=== PATIENT | male | born 1930 | race Caucasian/White ===

== ENCOUNTER 2016-06-27 13:48 | Observation (INO) ==
[2016-06-27 14:43] LABS: Basophils % 0.7 %; Eosinophils # 0.2 K/mcL (0.0-0.6); Eosinophils % 3.6 %; Hematocrit 29.2 % (37.5-50.1); Hemoglobin 9.3 g/dL (12.9-16.9); Immature Granulocytes % 0.6 % (0-4); Lymphocytes # 0.8 K/mcL (0.6-4.6); Lymphocytes % 14.2 %; Mean Corpuscular HGB Conc 31.8 g/dL (31.6-35.5); Mean Corpuscular Hemoglobin 36.3 pg (28.0-33.3); Mean Corpuscular Volume 114.1 fL (83.0-100.0); Mean Platelet Volume 9.2 fL (9.4-12.4); Monocytes # 0.6 K/mcL (0.0-1.3); Monocytes % 10.8 %; Neutrophils # 3.8 K/mcL (1.6-8.9); Platelet Count 225 K/mcL (140-400); Red Blood Count 2.56 M/mcL (4.19-5.50); Red Cell Distribution Width 14.8 % (11.5-14.5); Segmented Neutrophils % 70.1 %
[2016-06-27 14:57] LABS: Albumin/Globulin Ratio 0.9 (1.1-2.2); Bilirubin,Total 0.5 mg/dL (0.2-1.2); Calcium 9.1 mg/dL (8.6-10.8); Globulin 3.5 g/dL (2.4-3.5); Potassium 4.8 mEq/L (3.5-4.5); Total Protein 6.5 g/dL (6.0-8.3)
[2016-06-27 14:58] LABS: Anisocytosis 2+ (Not Present); Macrocytosis Present (Not Present)
[2016-06-27 14:59] LABS: Platelet Estimate Normal (Normal)
--- NOTE | 2016-06-27 16:01 | Emergency Department Note ---
Disposition Clinical Impression: Leg edema Qualifiers: Laterality: bilateral Qualified Code(s): R60.0 - Localized edema Disposition: Admitted As Inpatient Weakness HPI - General Chief complaint: ED Weakness Stated complaint: weakness, fluid build-up Time Seen by Provider: 06/27/16 13:57 Source: patient, family Limitations: age Nursing Notes Reviewed: Yes Vital Signs Reviewed: Yes - History of Present Illness HPI Narrative: Patient presents to complain of generalized weakness that has been progressively getting worse. Patient had surgery to remove a bladder tumor and no this more swelling after radiation. Patient has chest pain as noted is at some shortness of breath. Patient has increased weakness with is unable to get out of his chair at home. Patient presented to Dr. Marquez's office where he was sent over here for evaluation for admission. Patient denies numbness and tingling denies vision changes. Pain Scale: 0 - Related Data Home Medications Medication Instructions Recorded Confirmed Alpha Lipoic Acid 600 mg PO DAILY 12/18/15 06/27/16 B Complex with Vitamin C [Vitamin 1 each PO DAILY 12/18/15 06/27/16 B-Complex & C] Cranberry Fruit Extract [Cranberry] 500 mg PO DAILY 12/18/15 06/27/16 Cyanocobalamin (Vitamin B-12) 5,000 mcg SL DAILY 12/18/15 06/27/16 [Vitamin B-12] Gabapentin [Neurontin] 300 mg PO HS 12/18/15 06/27/16 Garlic 1,000 mg PO DAILY 12/18/15 06/27/16 Ginkgo Biloba 60 mg PO DAILY 12/18/15 06/27/16 Gluc Lemos/MSM/Magnesium/Vit C 2 each PO DAILY 12/18/15 06/27/16 [Glucosamine Complex-MSM Cap] Insulin Glargine,Hum.rec.anlog 40 unit SQ HS 12/18/15 06/27/16 [Lantus Solostar] Insulin LISPRO [Humalog] 35 unit SQ TID 12/18/15 06/27/16 Metoprolol XL (24 HR) Succ [Toprol 37.5 mg PO BID 12/18/15 06/27/16 Xl] Nortriptyline [Pamelor] 25 mg PO HS 12/18/15 06/27/16 [place]-3S/Dha/Epa/Fish Oil [[place]-3 2 each PO DAILY 12/18/15 06/27/16 Fish Oil 1,000 mg Sfgl] Tumeric-Curcumin Complex 1 tab PO DAILY 12/18/15 06/27/16 Vit C/E/Zn/Coppr/Lutein/Zeaxan 2 cap PO DAILY 12/18/15 06/27/16 [Preservision Areds 2 Softgel] Aspirin [Lo-Dose Aspirin EC] 81 mg PO DAILY 01/15/16 06/27/16 Atorvastatin Calcium [Lipitor] 80 mg PO HS 01/15/16 06/27/16 Multivit-Min/Iron Fum/Folic AC 1 each PO DAILY 01/15/16 06/27/16 [Tttkj-Uubnusv-Xerhejzo Tablet] Bumetanide [Bumex] 1 mg PO QAM 03/21/16 06/27/16 Enalapril Maleate [Vasotec] 10 mg PO DAILY 04/18/16 06/27/16 Fenofibrate [Lofibra] 160 mg PO DAILY 04/18/16 06/27/16 Ranitidine HCl [Heartburn Relief] 150 mg PO DAILY 04/18/16 06/27/16 Finasteride [Proscar] 5 mg PO DAILY 06/27/16 06/27/16 L. Acidophilus/Pectin, [place] 1 each PO DAILY 06/27/16 06/27/16 [Acidophilus Probiotic Capsule] Levothyroxine [Levothyroxine 137 mcg PO DAILY@0630 06/27/16 06/27/16 Sodium] Lutein/Zeaxanthin 1 each PO DAILY 06/27/16 06/27/16 [Lutein-Zeaxanthin 25-5 mg Sfgl] Previous Rx's Medication Instructions Recorded Ondansetron HCl [Zofran] 4 mg PO Q6HR PRN #20 tablet 01/16/16 Loperamide [Imodium] 2 mg PO BID PRN #60 capsule 03/21/16 Cephalexin [Keflex] 1,000 mg PO BID #40 capsule 06/21/16 Meloxicam [Mobic] 7.5 mg PO DAILY #10 tablet 06/21/16 Nitrofurantoin (BID) [Macrobid] 100 mg PO BID #20 capsule 06/21/16 Allergies Allergy/AdvReac Type Severity Reaction Status Date / Time No Known Allergies Allergy Verified 02/18/16 09:40 All systems ED: reviewed and negative except as stated. Past Medical History - Past Medical History Source: patient Medical history: Reports: cancer, diabetes, GERD, hyperlipidemia, hypertension, renal disease, thyroid disease, other Surgical history: Reports: carotid endarterectomy, knee replacement (Bilateral) , orthopedic, other (Back surgery), prostatectomy, vascular surgery (Aortic valve replacement), other (Ureteral stent him a port right upper chest) Psychiatric history: Reports: no psych history - Social History Smoking Status: Never smoker Smokeless Tobacco Status: No Alcohol use: Reports: none Drug use: Reports: none Physical Exam - General Limitations: age General appearance: alert, in no apparent distress - Head Head exam: atraumatic, normocephalic, normal inspection - Eye Eye exam: Present: normal appearance, PERRL, EOMI - ENT ENT exam: normal exam, normal oropharynx, mucous membranes moist - Neck Neck exam: Present: normal inspection, full ROM, trachea midline - Chest Chest inspection: Present: normal inspection, symmetric chest wall rise - Respiratory Respiratory exam: Present: normal lung sounds bilaterally - Cardiovascular Cardiovascular exam: Present: regular rate, normal rhythm, normal heart sounds - Abdominal Exam Abdominal exam: Present: soft, Non-Tender. Absent: tenderness, distention, guarding, rebound, rigidity - Extremities Exam Extremities exam: Present: full ROM, pedal edema. Absent: tenderness, normal capillary refill - Back Exam Back exam: Present: normal inspection, full ROM. Absent: tenderness - Neurological Exam Neurological exam: Present: alert, oriented X3 - Psychiatric Psychiatric exam: Present: normal affect, normal mood - Skin Skin exam: Present: warm Course Vital Signs Temperature 97.6 F 06/27/16 13:50 Pulse Rate 61 06/27/16 13:50 Respiratory Rate 18 06/27/16 13:50 Blood Pressure 120/76 06/27/16 13:50 O2 Sat by Pulse Oximetry 98 06/27/16 13:50 Temperature 97.6 F 06/27/16 13:50 Pulse Rate 63 06/27/16 15:04 Respiratory Rate 16 06/27/16 15:04 Blood Pressure 145/60 06/27/16 15:04 O2 Sat by Pulse Oximetry 100 06/27/16 15:04 Oxygen Delivery Oxygen Delivery Room Air Weakness - Differential Diagnosis Differential Diagnosis: Likely: acute myocardial infarction, anemia, rhabdomyolysis, dehydration, thyroid/endocrine disorder - Lab Data Lab results reviewed: Yes I reviewed the patient's lab results. Result diagrams: 06/27/16 14:33 06/27/16 14:33 Lab Results 06/27/16 06/27/16 06/27/16 Range/Units 14:33 14:33 14:33 WBC 5.4 (4.3-11.1) K/mcL RBC 2.56 L (4.19-5.50) M/mcL Hgb 9.3 L (12.9-16.9) g/dL Hct 29.2 L (37.5-50.1) % MCV 114.1 H (83.0-100.0) fL MCH 36.3 H (28.0-33.3) pg MCHC 31.8 (31.6-35.5) g/dL RDW 14.8 H (11.5-14.5) % Plt Count 225 (140-400) K/mcL MPV 9.2 L (9.4-12.4) fL Immature Gran % 0.6 (0-4) % Seg Neutrophils % 70.1 % Lymphocytes % 14.2 % Monocytes % 10.8 % Eosinophils % 3.6 % Basophils % 0.7 % Neutrophils # 3.8 (1.6-8.9) K/mcL Lymphocytes # 0.8 (0.6-4.6) K/mcL Monocytes # 0.6 (0.0-1.3) K/mcL Eosinophils # 0.2 (0.0-0.6) K/mcL Basophils # 0.0 (0.0-0.2) K/mcL Platelet Estimate Normal (Normal) Anisocytosis 2+ A (Not Present) Macrocytosis Present A (Not Present) Sodium 139 (136-145) mEq/L Potassium 4.8 H (3.5-4.5) mEq/L Chloride 110 H (98-109) mEq/L Carbon Dioxide 23 (19-29) mEq/L BUN 47 H (8-26) mg/dL Creatinine 1.84 H (0.72-1.25) mg/dL Est GFR ( Amer) 43 L (> 60) Est GFR (Non-Af Amer) 35 L (> 60) BUN/Creatinine Ratio 26 (6-26) Glucose 127 H (70-99) mg/dL Calculated Osmolality 302 H (280-300) Calcium 9.1 (8.6-10.8) mg/dL Total Bilirubin 0.5 (0.2-1.2) mg/dL AST 78 H (5-34) Units/L ALT 55 (0-55) Units/L Alkaline Phosphatase 46 (38-126) Units/L Troponin I 0.02 (0-0.03) ng/mL B-Natriuretic Peptide (0-100) pg/mL Serum Total Protein 6.5 (6.0-8.3) g/dL Albumin 3.0 L (3.5-5.0) g/dL Globulin 3.5 (2.4-3.5) g/dL Albumin/Globulin Ratio 0.9 L (1.1-2.2) / Range/Units 14:33 WBC (4.3-11.1) K/mcL RBC (4.19-5.50) M/mcL Hgb (12.9-16.9) g/dL Hct (37.5-50.1) % MCV (83.0-100.0) fL MCH (28.0-33.3) pg MCHC (31.6-35.5) g/dL RDW (11.5-14.5) % Plt Count (140-400) K/mcL MPV (9.4-12.4) fL Immature Gran % (0-4) % Seg Neutrophils % % Lymphocytes % % Monocytes % % Eosinophils % % Basophils % % Neutrophils # (1.6-8.9) K/mcL Lymphocytes # (0.6-4.6) K/mcL Monocytes # (0.0-1.3) K/mcL Eosinophils # (0.0-0.6) K/mcL Basophils # (0.0-0.2) K/mcL Platelet Estimate (Normal) Anisocytosis (Not Present) Macrocytosis (Not Present) Sodium (136-145) mEq/L Potassium (3.5-4.5) mEq/L Chloride (98-109) mEq/L Carbon Dioxide (19-29) mEq/L BUN (8-26) mg/dL Creatinine (0.72-1.25) mg/dL Est GFR ( Amer) (> 60) Est GFR (Non-Af Amer) (> 60) BUN/Creatinine Ratio (6-26) Glucose (70-99) mg/dL Calculated Osmolality (280-300) Calcium (8.6-10.8) mg/dL Total Bilirubin (0.2-1.2) mg/dL AST (5-34) Units/L ALT (0-55) Units/L Alkaline Phosphatase (38-126) Units/L Troponin I (0-0.03) ng/mL B-Natriuretic Peptide 334 H (0-100) pg/mL Serum Total Protein (6.0-8.3) g/dL Albumin (3.5-5.0) g/dL Globulin (2.4-3.5) g/dL Albumin/Globulin Ratio (1.1-2.2) - Radiology Data Radiology results reviewed: Yes I reviewed the patient's radiology results. Chest X-Ray 06/27/16 14:07 IMPRESSION: 1. Right chest port unchanged in position. 2. Persistent enlargement of the cardiac silhouette. 3. Small left pleural effusion with left basilar atelectasis. D/ / Jarret Mojica MD / Jarret Mojica MD Interpreting Provider: Jarret Mojica MD - EKG Data EKG attestation: Yes I reviewed and interpreted this EKG. EKG results narrative: Atrial flutter. This appears unchanged from previous EKG
[2016-06-27] MEDS ORDERED: Furosemide 40 MG/4 ML VIAL IVP ONE (16:09)
[2016-06-27] MEDS ORDERED: Naloxone 0.4 MG/ML INJ IVP PRN (17:11)
[2016-06-27] MEDS ORDERED: Acetaminophen 325 MG TABLET PO PRN (17:11)
[2016-06-27] MEDS ORDERED: Furosemide 80 MG in 0.9 % Sodium Chloride 50 ML IVPB SCH (17:30)
--- NOTE | 2016-06-27 17:48 | Internal Med History&Physical ---
Date of Encounter: 06/27/16 Time of Encounter: 17:43 Assessment and Plan (1) Peripheral edema Current visit: No Status: Acute Unclear etiology. No known history of CHF. Albumin low at 3, but likely not low enough to explain extent of edema. - Lasix IV BID - Check TTE - Request records from previous cardiology workup at [facility] (2) Weakness Current visit: No Status: Acute Patient appears very deconditioned after chemoradiation he received in 2016, worsened by large volume of edema. He has received five days of keflex and nitrofurantoin for UTI diagnosed on 06/21 - nitrofurantoin contraindicated in renal failure patient. Antibiotics held while UA obtained. - Family interested in inpatient rehab if possible - PT/OT while admitted - Check UA/micro to eval for evidence of infection (3) Atrial flutter with controlled response Current visit: No Status: Acute Rate controlled. Patient not anticoagulated. - Continue home beta keerthi (4) CKD (chronic kidney disease) Current visit: Yes Status: Acute Creatinine at baseline. Follows with Dr. Costa - Monitor creatinine with diuresis. - Avoid nephrotoxins Qualifiers: Chronic kidney disease stage: stage 3 (moderate) Qualified Code(s): N18.3 - Chronic kidney disease, stage 3 (moderate) Internal Medicine - H&P: HPI Chief complaint: weakness, edema Admitted From: Emergency Dept Plans for Post Hospital Care: Transfer Inp Rehab Fac History of present illness: Mr. Gonzalez is a 85 year old male with history of bladder cancer s/p chemoradiation, CKD, atrial flutter and aortic valve replacement (porcine), who presented to the ER this afternoon from Dr. Marquez's office after he was found to be very weak with increasing lower extremity edema during a routine follow up visit. He states that he has had issues with edema for many years, but has never carried a diagnosis of CHF. He had been treated with bumex 1mg daily with good results until 03/2016 when he developed worsening edema after completing radiation to the bladder. His bumex was increased to 2mg daily and his edema improved. His bumex was then decreased again to 1mg at one point, and that is his current dose. He has noticed increasing lower extremity edema extending up into his abdomen over the past 5-6 days. His pants are fitting snug around the waist. He has been very weak since 03/2016 after his cancer treatment completed , but this has also been getting worse lately. He denies chest pain. He also states that his breathing is comfortable, however his and daughter who are at bedside in the ER state that he has been visibly dyspneic recently. His notes that the breathing is significantly more labored when he is laying flat in bed at night. He denies fever or chills, nausea, vomiting, diarrhea or cough. He was treated for UTI at [facility] on 06/21 with keflex and nitrofurantoin, he refused admission at that time. Past Med Surg Social Fam HX - Past Medical History Medical history: cancer, diabetes, GERD, hyperlipidemia, hypertension, renal disease (CKD - follows with Dr. Costa), thyroid disease, other Psychiatric history: no psych history - Past Surgical History Surgical History: carotid endarterectomy, knee replacement (Bilateral), orthopedic, other (Back surgery), prostatectomy, vascular surgery (Aortic valve replacement), other (Ureteral stent him a port right upper chest) - Social History Smoking Status: Never smoker Smokeless Tobacco Status: No Alcohol use: none Drug use: none Additional social history: Lives at home with family - Family History Brother Living Status: Hx Family Cardiac Disorders: Yes Internal Medicine - H&P: Meds Alpha Lipoic Acid 600 mg PO DAILY 12/18/15 [History] B Complex with Vitamin C [Vitamin B-Complex & C] 1 each PO DAILY 12/18/15 [ History] Cranberry Fruit Extract [Cranberry] 500 mg PO DAILY 12/18/15 [History] Cyanocobalamin (Vitamin B-12) [Vitamin B-12] 5,000 mcg SL DAILY 12/18/15 [ History] Gabapentin [Neurontin] 300 mg PO HS 12/18/15 [History] Garlic 1,000 mg PO DAILY 12/18/15 [History] Ginkgo Biloba 60 mg PO DAILY 12/18/15 [History] Gluc [place]/MSM/Magnesium/Vit C [Glucosamine Complex-MSM Cap] 2 each PO DAILY [History] Insulin Glargine,Hum.rec.anlog [Lantus Solostar] 40 unit SQ HS 12/18/15 [History ] Insulin LISPRO [Humalog] 35 unit SQ TID 12/18/15 [History] Metoprolol XL (24 HR) Succ [Toprol Xl] 37.5 mg PO BID 12/18/15 [History] Nortriptyline [Pamelor] 25 mg PO HS 12/18/15 [History] [place]-3S/Dha/Epa/Fish Oil [[place]-3 Fish Oil 1,000 mg Sfgl] 2 each PO DAILY 12/17 [History] Tumeric-Curcumin Complex 1 tab PO DAILY 12/18/15 [History] Vit C/E/Zn/Coppr/Lutein/Zeaxan [Preservision Areds 2 Softgel] 2 cap PO DAILY 09/26 [History] Aspirin [Lo-Dose Aspirin EC] 81 mg PO DAILY 01/15/16 [History] Atorvastatin Calcium [Lipitor] 80 mg PO HS 01/15/16 [History] Multivit-Min/Iron Fum/Folic AC [Qukqp-Pugfjwt-Axtiadpd Tablet] 1 each PO DAILY 01/15/16 [History] Ondansetron HCl [Zofran] 4 mg PO Q6HR PRN #20 tablet 01/16/16 [Rx] Bumetanide [Bumex] 1 mg PO QAM 03/21/16 [History] Loperamide [Imodium] 2 mg PO BID PRN #60 capsule 03/21/16 [Rx] Enalapril Maleate [Vasotec] 10 mg PO DAILY 04/18/16 [History] Fenofibrate [Lofibra] 160 mg PO DAILY 04/18/16 [History] Ranitidine HCl [Heartburn Relief] 150 mg PO DAILY 04/18/16 [History] Cephalexin [Keflex] 1,000 mg PO BID #40 capsule 06/21/16 [Rx] Meloxicam [Mobic] 7.5 mg PO DAILY #10 tablet 06/21/16 [Rx] Nitrofurantoin (BID) [Macrobid] 100 mg PO BID #20 capsule 06/21/16 [Rx] Finasteride [Proscar] 5 mg PO DAILY 06/27/16 [History] L. Acidophilus/Pectin, [place] [Acidophilus Probiotic Capsule] 1 each PO DAILY [History] Levothyroxine [Levothyroxine Sodium] 137 mcg PO DAILY@0630 06/27/16 [History] Lutein/Zeaxanthin [Lutein-Zeaxanthin 25-5 mg Sfgl] 1 each PO DAILY 06/27/16 [ History] Allergies No Known Allergies Allergy (Verified 02/18/16 09:40) All Systems PM: A 10-system review of systems was performed and is negative for pertinent findings except as documented above in the HPI. - Constitutional Vitals: Temp Pulse Resp BP Pulse Ox 97.6 F 63 16 138/64 99 06/27/16 13:50 06/27/16 17:07 06/27/16 17:07 06/27/16 17:07 06/27/16 17:07 General appearance: Present: A&O X 3 Exam: Patient in no acute distress, resting comfortably in bed. - Head Head exam: Present: atraumatic - Eye Eye exam: Present: EOMI, sclera anicteric - ENT ENT exam: Present: mucous membranes moist - Respiratory Additional comments: Decreased breath sounds in bilateral bases, no wheezing - Cardiovascular Cardiovascular exam: Present: RRR. Absent: diastolic murmur, gallop, rubs, systolic murmur - GI/Abdominal GI/Abdominal exam: Present: distended (skin edema of lower abdomen), normal bowel sounds, soft. Absent: tenderness - Extremities Exam Extremities exam: Present: pedal edema Additional comments: 3+ edema bilateral lower extremities - Neurological Exam Neurological exam: Present: no focal deficits - Skin Skin exam: Absent: rash Internal Med - H&P Results - Labs CBC & Chem 7: 06/27/16 14:33 06/27/16 14:33
[2016-06-27] MEDS ORDERED: Insulin LISPRO 300 UNITS/3 ML VIAL SQ ONE (18:47)
[2016-06-27] MEDS ORDERED: Nitrofurantoin (BID) 100 MG CAPSULE PO SCH (21:00)
[2016-06-27] MEDS ORDERED: cephALEXin 500 MG CAPSULE PO SCH (21:00)
[2016-06-27] MEDS: Metoprolol XL (24 HR) Succ 25 MG TAB.ER.24H PO SCH (21:12)
[2016-06-27] MEDS: Gabapentin 300 MG CAPSULE PO SCH (21:13)
[2016-06-27] MEDS: Insulin DETEMIR 100 UNIT/ML X5UNITS SQ SCH (21:17)
[2016-06-28 04:05] LABS: Basophils % 0.6 %; Eosinophils # 0.2 K/mcL (0.0-0.6); Eosinophils % 3.9 %; Hematocrit 27.9 % (37.5-50.1); Hemoglobin 8.9 g/dL (12.9-16.9); Immature Granulocytes % 0.4 % (0-4); Lymphocytes # 0.8 K/mcL (0.6-4.6); Lymphocytes % 15.4 %; Mean Corpuscular HGB Conc 31.9 g/dL (31.6-35.5); Mean Platelet Volume 9.4 fL (9.4-12.4); Monocytes # 0.8 K/mcL (0.0-1.3); Monocytes % 14.2 %; Platelet Count 239 K/mcL (140-400); Red Blood Count 2.47 M/mcL (4.19-5.50); Red Cell Distribution Width 15.2 % (11.5-14.5); Segmented Neutrophils % 65.5 %
[2016-06-28 04:13] LABS: Neutrophils # 3.5 K/mcL (1.6-8.9)
[2016-06-28 04:16] LABS: Calcium 8.4 mg/dL (8.6-10.8); Potassium 5.1 mEq/L (3.5-4.5)
[2016-06-28 04:53] LABS: Macrocytosis Present (Not Present)
[2016-06-28 04:54] LABS: Platelet Estimate Normal (Normal)
[2016-06-28] MEDS: *HR* Heparin 5,000 UNIT/ML VIAL SQ SCH ×2 (06:34→18:33)
[2016-06-28] MEDS: Insulin LISPRO 300 UNITS/3 ML VIAL SQ SCH ×3 (07:30→18:32)
[2016-06-28] MEDS: Famotidine 20 MG TABLET PO SCH (09:05)
[2016-06-28] MEDS: Metoprolol XL (24 HR) Succ 25 MG TAB.ER.24H PO SCH ×2 (09:05→21:18)
[2016-06-28] MEDS: Fenofibrate 54 MG TABLET PO SCH (09:05)
[2016-06-28] MEDS: Lactobacillus 1 EACH CAP.SPRINK PO SCH (09:05)
[2016-06-28] MEDS: Aspirin Enteric Coated 81 MG Tablet PO SCH (09:06)
[2016-06-28] MEDS: Finasteride 5 MG TABLET PO SCH (09:06)
[2016-06-28] MEDS: Furosemide 40 MG/4 ML VIAL IVP SCH ×2 (09:40→18:32)
--- NOTE | 2016-06-28 14:38 | Internal Med Progress Note ---
Date of Encounter: 06/28/16 Time of Encounter: 14:36 - Assessment and plan (1) Leg edema Current Visit: Yes Status: Acute Assessment and plan: Severe bilateral leg edema with bilateral small pleural effusions worse on the left, consider possible CHF systolic versus diastolic Leg edema was exacerbated after receiving chemotherapy and radiation for history of bladder cancer Echocardiogram ordered Continue Lasix 40 mg IV twice a day, patient takes Bumex 1 mg daily at home Strict I's and O's and daily weight Qualifiers: Laterality: bilateral Qualified Code(s): R60.0 - Localized edema (2) Peripheral edema Current Visit: No Status: Acute (3) Weakness Current Visit: No Status: Acute Assessment and plan: Likely related to vascular congestion/pleural effusions/edema (4) Atrial flutter with controlled response Current Visit: No Status: Acute Assessment and plan: Controlled on metoprolol Not on anticoagulation, continue aspirin (5) UTI (urinary tract infection) Current Visit: No Status: Acute Assessment and plan: Treated for UTI recently with Keflex and Nitrofurantoin (should not be used with CKD), order UA and culture Grew Proteus in April 2016 pansensitive and enterococcus sensitive to ampicillin in the past Qualifiers: Urinary tract infection type: acute cystitis Hematuria presence: with hematuria Qualified Code(s): N30.01 - Acute cystitis with hematuria (6) CKD (chronic kidney disease) Current Visit: Yes Status: Acute Assessment and plan: Stable, at baseline Qualifiers: Chronic kidney disease stage: stage 3 (moderate) Qualified Code(s): N18.3 - Chronic kidney disease, stage 3 (moderate) (7) Pressure ulcer of coccygeal region, stage 2 Current Visit: No Status: Acute (8) Hyperkalemia Current Visit: Yes Status: Acute Assessment and plan: Potassium is 5.1 Monitor in the morning, consider Kayexalate and holding lisinopril if needed - Subjective Interval history: The patient feels less short of breath than yesterday but still very weak, his legs are still extremely swollen, denies any dysuria at the moment. Denies any chest pain, no abdominal pain or diarrhea, no fever - Constitutional Vitals: Temp Pulse Resp BP Pulse Ox 97.8 F 63 16 125/58 97 06/28/16 11:52 06/28/16 11:52 06/28/16 11:52 06/28/16 11:52 06/28/16 11:52 General appearance: Present: A&O X 3 - Head Head exam: Present: atraumatic, normocephalic - Eye Eye exam: Present: PERRL, conjuntiva pink, sclera anicteric Pupils: Present: PERRL - Neck Neck exam general surgery: Present: supple, trachea midline. Absent: lymphadenopathy - Respiratory Respiratory exam: Present: CTAB, rales (Bibasilar fine crackles mainly on the left base). Absent: accessory muscle use, rhonchi, wheezes - Cardiovascular Cardiovascular exam: Present: RRR, +S1, +S2, systolic murmur (Loud systolic murmur 2 out of 6 rad to the aortic area). Absent: diastolic murmur, gallop, rubs - GI/Abdominal GI/Abdominal exam: Present: distended, normal bowel sounds, soft, no peritoneal signs. Absent: tenderness - Extremities Exam Extremities exam: Present: pedal edema (+3 pitting edema in both lower extremities), warm, radial pulses palpable and symetrical. Absent: calf tenderness, cyanotic - Neurological Exam Neurological exam: Present: CN II-XII intact, oriented X3, no focal deficits. Absent: pronater drift, facial droop, speech deficit - Skin Skin exam: Present: dry, intact Internal Medicine: Result - Labs CBC & Chem 7: 06/28/16 03:56 06/28/16 03:56 Labs: Short CBC 06/28/16 Range/Units 03:56 WBC 5.4 (4.3-11.1) K/mcL Hgb 8.9 L (12.9-16.9) g/dL Hct 27.9 L (37.5-50.1) % Plt Count 239 (140-400) K/mcL Neutrophils # 3.5 (1.6-8.9) K/mcL BMP 06/28/16 03:56 Sodium 139 Potassium 5.1 H Chloride 108 Carbon Dioxide 24 BUN 47 H Creatinine 1.86 H Glucose 118 H Calcium 8.4 L Consult Discharge Plan - Plan Referrals: Doris Kwon MD [Primary Care Provider] -
[2016-06-28] MEDS: Gabapentin 300 MG CAPSULE PO SCH (21:18)
[2016-06-28] MEDS: Insulin DETEMIR 100 UNIT/ML X5UNITS SQ SCH (21:18)
[2016-06-29 01:45] LABS: Bilirubin,Urine Negative (Negative); Blood,Urine Large (Negative); Clarity,Urine Cloudy (Clear); Color,Urine Yellow (Yellow); Glucose,Urine (UA) 100 mg/dL (Normal); Ketones,Urine Negative (Negative); Leukocyte Esterase,Urine Moderate (Negative); Nitrite,Urine Negative (Negative); Protein,Urine 100 mg/dL (Neg-Trace); Specific Gravity,Urine 1.016 (1.010-1.025); Urobilinogen,Urine Normal (Normal)
[2016-06-29 01:47] LABS: Bacteria,Urine None Seen per hpf (None-Few); RBC,Urine TNTC per hpf (0-3); Squamous Epithelial Cell,Urine Many per lpf (None-Few); WBC,Urine 15-30 per hpf (0-3)
[2016-06-29 01:55] LABS: Mucus,Urine Few (Few); Renal Epithelial Cells,Urine Few per hpf (None-Few)
[2016-06-29 04:46] LABS: Basophils # 0.1 K/mcL (0.0-0.2); Basophils % 0.8 %; Eosinophils # 0.3 K/mcL (0.0-0.6); Eosinophils % 3.8 %; Hematocrit 27.6 % (37.5-50.1); Immature Granulocytes % 0.3 % (0-4); Lymphocytes % 17.6 %; Mean Corpuscular HGB Conc 32.6 g/dL (31.6-35.5); Mean Corpuscular Hemoglobin 36.6 pg (28.0-33.3); Mean Corpuscular Volume 112.2 fL (83.0-100.0); Mean Platelet Volume 9.9 fL (9.4-12.4); Monocytes % 14.7 %; Neutrophils # 4.1 K/mcL (1.6-8.9); Platelet Count 244 K/mcL (140-400); Red Blood Count 2.46 M/mcL (4.19-5.50); Red Cell Distribution Width 15.1 % (11.5-14.5); Segmented Neutrophils % 62.8 %
[2016-06-29 04:59] LABS: Lymphocytes # 1.1 K/mcL (0.6-4.6)
[2016-06-29 05:05] LABS: Calcium 8.6 mg/dL (8.6-10.8); Potassium 4.7 mEq/L (3.5-4.5)
[2016-06-29 05:16] LABS: Platelet Estimate Normal (Normal)
[2016-06-29 05:17] LABS: Macrocytosis Present (Not Present); Polychromasia 1+ (Not Present)
[2016-06-29 05:18] LABS: Anisocytosis 1+ (Not Present); Large Platelets Present (Not Present)
[2016-06-29] MEDS: *HR* Heparin 5,000 UNIT/ML VIAL SQ SCH (06:03)
[2016-06-29] MEDS ORDERED: *HR* OxyCODONE Immed Rel 5 MG TABLET PO PRN (06:41)
[2016-06-29] MEDS: Insulin LISPRO 300 UNITS/3 ML VIAL SQ SCH (09:03)
[2016-06-29] MEDS: Lactobacillus 1 EACH CAP.SPRINK PO SCH (09:04)
[2016-06-29] MEDS: Famotidine 20 MG TABLET PO SCH (09:04)
[2016-06-29] MEDS: Finasteride 5 MG TABLET PO SCH (09:04)
[2016-06-29] MEDS: Aspirin Enteric Coated 81 MG Tablet PO SCH (09:04)
[2016-06-29] MEDS: Furosemide 40 MG/4 ML VIAL IVP SCH (09:04)
[2016-06-29] MEDS: Fenofibrate 54 MG TABLET PO SCH (09:05)
[2016-06-29] MEDS: Metoprolol XL (24 HR) Succ 25 MG TAB.ER.24H PO SCH (09:05)
[2016-06-29] MEDS ORDERED: Amoxicillin/Clavulanate 500 MG TABLET PO SCH (09:32)
--- NOTE | 2016-06-29 09:33 | Discharge Summary ---
Date of Encounter: 06/29/16 Time of Encounter: 09:31 - Discharge Diagnosis (1) Leg edema Priority: Primary Status: Acute Comments: Severe bilateral leg edema with bilateral small pleural effusions worse on the left, Leg edema was exacerbated after receiving chemotherapy and radiation for history of bladder cancer, consider possible CHF systolic versus diastolic Echocardiogram pending Qualifiers: Laterality: bilateral Qualified Code(s): R60.0 - Localized edema (2) Peripheral edema Priority: Primary Status: Inactive (3) Weakness Priority: Secondary Status: Inactive (4) Atrial flutter with controlled response Priority: Secondary Status: Inactive (5) UTI (urinary tract infection) Priority: Primary Status: Inactive Qualifiers: Urinary tract infection type: acute cystitis Hematuria presence: with hematuria Qualified Code(s): N30.01 - Acute cystitis with hematuria (6) CKD (chronic kidney disease) Priority: Secondary Status: Acute Qualifiers: Chronic kidney disease stage: stage 3 (moderate) Qualified Code(s): N18.3 - Chronic kidney disease, stage 3 (moderate) (7) Hyperkalemia Priority: Secondary Status: Acute - Discharge Medications Prescriptions: Amoxicillin/Clavulanate [Augmentin] 875 mg PO BIDWM #16 tablet Bumetanide [Bumex] 1 mg PO BID #60 tablet Home Medications: Alpha Lipoic Acid 600 mg PO DAILY 12/18/15 [History] B Complex with Vitamin C [Vitamin B-Complex & C] 1 each PO DAILY 12/18/15 [ History] Cranberry Fruit Extract [Cranberry] 500 mg PO DAILY 12/18/15 [History] Cyanocobalamin (Vitamin B-12) [Vitamin B-12] 5,000 mcg SL DAILY 12/18/15 [ History] Gabapentin [Neurontin] 300 mg PO HS 12/18/15 [History] Garlic 1,000 mg PO DAILY 12/18/15 [History] Ginkgo Biloba 60 mg PO DAILY 12/18/15 [History] Gluc [place]os/MSM/Magnesium/Vit C [Glucosamine Complex-MSM Cap] 2 each PO DAILY [History] Insulin Glargine,Hum.rec.anlog [Lantus Solostar] 40 unit SQ HS 12/18/15 [History ] Insulin LISPRO [Humalog] 35 unit SQ TID 12/18/15 [History] Metoprolol XL (24 HR) Succ [Toprol Xl] 37.5 mg PO BID 12/18/15 [History] Nortriptyline [Pamelor] 25 mg PO HS 12/18/15 [History] [place]-3S/Dha/Epa/Fish Oil [[place]-3 Fish Oil 1,000 mg Sfgl] 2 each PO DAILY 12/17 [History] Tumeric-Curcumin Complex 1 tab PO DAILY 12/18/15 [History] Vit C/E/Zn/Coppr/Lutein/Zeaxan [Preservision Areds 2 Softgel] 2 cap PO DAILY 09/26 [History] Aspirin [Lo-Dose Aspirin EC] 81 mg PO DAILY 01/15/16 [History] Atorvastatin Calcium [Lipitor] 80 mg PO HS 01/15/16 [History] Multivit-Min/Iron Fum/Folic AC [Gcbzs-Bujdppt-Pprvkabp Tablet] 1 each PO DAILY 01/15/16 [History] Ondansetron HCl [Zofran] 4 mg PO Q6HR PRN #20 tablet 01/16/16 [Rx] Loperamide [Imodium] 2 mg PO BID PRN #60 capsule 03/21/16 [Rx] Enalapril Maleate [Vasotec] 10 mg PO DAILY 04/18/16 [History] Fenofibrate [Lofibra] 160 mg PO DAILY 04/18/16 [History] Ranitidine HCl [Heartburn Relief] 150 mg PO DAILY 04/18/16 [History] Meloxicam [Mobic] 7.5 mg PO DAILY #10 tablet 06/21/16 [Rx] Finasteride [Proscar] 5 mg PO DAILY 06/27/16 [History] L. Acidophilus/Pectin, [place] [Acidophilus Probiotic Capsule] 1 each PO DAILY [History] Levothyroxine [Levothyroxine Sodium] 137 mcg PO DAILY@0630 06/27/16 [History] Lutein/Zeaxanthin [Lutein-Zeaxanthin 25-5 mg Sfgl] 1 each PO DAILY 06/27/16 [ History] Amoxicillin/Clavulanate [Augmentin] 875 mg PO BIDWM #16 tablet 06/29/16 [Rx] Bumetanide [Bumex] 1 mg PO BID #60 tablet 06/29/16 [Rx] Allergies/Adverse Reactions: Allergies No Known Allergies Allergy (Verified 02/18/16 09:40) Procedures/tests Complete & Pending: Procedures Performed prior 72 hours Category Date Time Status EV echocardiogram Routine Y 06/28/16 10:00 Completed Date of admission: 06/27/16 16:27 Primary care physician: Doris Kwon MD Consults: 06/27/16 17:14 Consult to Occupational Therapy [CONS] Routine Comment: Evaluate, develop and implement POC Consult to Physical Therapy [CONS] Routine Comment: Evaluate, develop and implement POC - Patient Status Disposition: Home Health Service Condition: Fair Overall status at discharge: patient is progressing back to baseline - Discharge Instructions Follow Up With: Doris Kwon MD [Primary Care Provider] - Forms: ED Satisfaction Letter Additional Instructions: Follow with primary care physician and urology within 7 days. In crease Bumex to 1 mg twice a day. Continue Augmentin for 1 week. Review results of echocardiogram with primary care physician. Keep Gupta catheter until urology appointment - Diet and Activity Activity: increase activity as tolerated Diet: low fat, low cholesterol Hospital course: Mr. Gonzalez is a 86 year old male with history of bladder cancer s/p chemoradiation, CKD3, atrial flutter and aortic valve replacement (porcine), who presented to the ER from Dr. Marquez's office after he was found to be very weak with increasing lower extremity edema during a routine follow up visit. He stated that he has had issues with edema for many years, but has never carried a diagnosis of CHF. He had been treated with bumex 1mg daily with good results until 03/2016 when he developed worsening edema after completing radiation to the bladder. His bumex was increased to 2mg daily and his edema improved. His bumex was then decreased again to 1mg at one point, and that is his current dose. He has noticed increasing lower extremity edema extending up into his abdomen over the past 5-6 days. He has been very weak since 03/2016 after his cancer treatment completed, but this has also been getting worse lately. He denies chest pain. He also states that his breathing is comfortable, however his and daughter who are at bedside in the ER state that he has been visibly dyspneic recently. He was treated for UTI at [facility] on 06/21 with keflex and nitrofurantoin, he refused admission at that time. chest x-ray showed left small pleural effusion with left basilar atelectases, was started on Lasix 40 mg twice a day. Potassium was 5.1 and came down to 4.7. Weakness is Likely related to vascular congestion/pleural effusions/edema. Gupta catheter was places and a UA showed hematuria and possible infection Before admission he was treated for UTI recently with Keflex and Nitrofurantoin (should not be used with CKD) In past cultures Grew Proteus in April 2016 pansensitive and enterococcus sensitive to ampicillin in the past He was given the option to stay another day to discuss his case with the continuous pillowcase cutter and attempt admission to inpatient rehab but at the moment he prefers to go home. He will keep the gupta catheter and follow up with his urologist within 7 days. Augmentin will be started - Time Spent with Patient Total time spent providing and/or coordinating discharge services: Greater than 30 minutes (40 min) - Constitutional Vitals: Temp Pulse Resp BP Pulse Ox 97.6 F 68 18 92/47 95 06/29/16 07:59 06/29/16 07:59 06/29/16 07:59 06/29/16 07:59 06/29/16 07:59 General appearance: Present: A&O X 3 - Head Head exam: Present: atraumatic, normocephalic - Eye Eye exam: Present: PERRL, conjuntiva pink, sclera anicteric Pupils: Present: PERRL - Neck Neck exam general surgery: Present: supple, trachea midline. Absent: lymphadenopathy - Respiratory Respiratory exam: Present: decreased breath sounds (left fine basilar crackles) , CTAB. Absent: accessory muscle use, rales, rhonchi, wheezes - Cardiovascular Cardiovascular exam: Present: RRR, +S1, +S2, systolic murmur (2/6 rad to aortic area). Absent: diastolic murmur, gallop, rubs - GI/Abdominal GI/Abdominal exam: Present: normal bowel sounds, soft, no peritoneal signs. Absent: distended, tenderness - Extremities Exam Extremities exam: Present: pedal edema (+ 2 pitting edema in both lower extremities improved), warm, radial pulses palpable and symetrical. Absent: calf tenderness, cyanotic - Neurological Exam Neurological exam: Present: CN II-XII intact, oriented X3, no focal deficits. Absent: pronater drift, facial droop, speech deficit - Skin Skin exam: Present: dry, intact
--- NOTE | 2016-06-29 09:46 | Physician Discharge Referral ---
Home Health/Hosp Referral Info Transfer to: Home Health Provider in Charge Post Discharge: PCP - Diagnosis (1) Leg edema Status: Acute (2) Peripheral edema Status: Inactive (3) Weakness Status: Inactive (4) Atrial flutter with controlled response Status: Inactive (5) UTI (urinary tract infection) Status: Inactive (6) CKD (chronic kidney disease) Status: Acute (7) Hyperkalemia Status: Acute - Respiratory Orders Smoking Cessation: Smoking cessation has been advised. For more information, call the [employer] Quit Line at 5-908-ZBWB-NOW. - Diet/Nutrition Diet/Nutrition Orders: No Added Salt (BLANCA) - Services Needed Following services are medically necessary services: Home Health Aide, Physical Therapy Home Care Orders: Follow with primary care physician and urology within 7 days. In crease Bumex to 1 mg twice a day. Continue Augmentin for 1 week. Review results of echocardiogram with primary care physician. Keep Knapp catheter until urology appointment - Transfer Medications Prescriptions: Amoxicillin/Clavulanate [Augmentin] 875 mg PO BIDWM #16 tablet Bumetanide [Bumex] 1 mg PO BID #60 tablet Home Medications: Alpha Lipoic Acid 600 mg PO DAILY 12/18/15 [History] B Complex with Vitamin C [Vitamin B-Complex & C] 1 each PO DAILY 12/18/15 [ History] Cranberry Fruit Extract [Cranberry] 500 mg PO DAILY 12/18/15 [History] Cyanocobalamin (Vitamin B-12) [Vitamin B-12] 5,000 mcg SL DAILY 12/18/15 [ History] Gabapentin [Neurontin] 300 mg PO HS 12/18/15 [History] Garlic 1,000 mg PO DAILY 12/18/15 [History] Ginkgo Biloba 60 mg PO DAILY 12/18/15 [History] Gluc [place]/MSM/Magnesium/Vit C [Glucosamine Complex-MSM Cap] 2 each PO DAILY [History] Insulin Glargine,Hum.rec.anlog [Lantus Solostar] 40 unit SQ HS 12/18/15 [History ] Insulin LISPRO [Humalog] 35 unit SQ TID 12/18/15 [History] Metoprolol XL (24 HR) Succ [Toprol Xl] 37.5 mg PO BID 12/18/15 [History] Nortriptyline [Pamelor] 25 mg PO HS 12/18/15 [History] [place]-3S/Dha/Epa/Fish Oil [[place]-3 Fish Oil 1,000 mg Sfgl] 2 each PO DAILY 12/17 [History] Tumeric-Curcumin Complex 1 tab PO DAILY 12/18/15 [History] Vit C/E/Zn/Coppr/Lutein/Zeaxan [Preservision Areds 2 Softgel] 2 cap PO DAILY 09/26 [History] Aspirin [Lo-Dose Aspirin EC] 81 mg PO DAILY 01/15/16 [History] Atorvastatin Calcium [Lipitor] 80 mg PO HS 01/15/16 [History] Multivit-Min/Iron Fum/Folic AC [Tdjit-Vmusvot-Rktlpvnz Tablet] 1 each PO DAILY 01/15/16 [History] Ondansetron HCl [Zofran] 4 mg PO Q6HR PRN #20 tablet 01/16/16 [Rx] Loperamide [Imodium] 2 mg PO BID PRN #60 capsule 03/21/16 [Rx] Enalapril Maleate [Vasotec] 10 mg PO DAILY 04/18/16 [History] Fenofibrate [Lofibra] 160 mg PO DAILY 04/18/16 [History] Ranitidine HCl [Heartburn Relief] 150 mg PO DAILY 04/18/16 [History] Meloxicam [Mobic] 7.5 mg PO DAILY #10 tablet 06/21/16 [Rx] Finasteride [Proscar] 5 mg PO DAILY 06/27/16 [History] L. Acidophilus/Pectin, [place] [Acidophilus Probiotic Capsule] 1 each PO DAILY [History] Levothyroxine [Levothyroxine Sodium] 137 mcg PO DAILY@0630 06/27/16 [History] Lutein/Zeaxanthin [Lutein-Zeaxanthin 25-5 mg Sfgl] 1 each PO DAILY 06/27/16 [ History] Amoxicillin/Clavulanate [Augmentin] 875 mg PO BIDWM #16 tablet 06/29/16 [Rx] Bumetanide [Bumex] 1 mg PO BID #60 tablet 06/29/16 [Rx] Allergies/Adverse Reactions: Allergies No Known Allergies Allergy (Verified 02/18/16 09:40) Certification: Further, I certify that my clinical findings support that this patient is homebound (i.e. absences from home require considerable and taxing effort and are for medical reasons or cheondoism services or infrequently or short duration when for other reasons) because: Homebound Reason: Patient requires assistance of a person or device to safely leave home Attestation: My signature below is to certify that this patient is under my care and that I, or nurse practitioner, or a physician's nurse assistant working with me, has a face-to -face encounter with this patient.
--- NOTE | 2016-06-29 11:29 | ECHO - Doppler Report ---
Echocardiogram Name: Stevie Gonzalez Date of Study: 06/28/2016 Date: 1930 Ht: 72.0 in Medical Record#: [id number] Age: 86 Wt: 250.0 lb Gender: Male BSA: 2.34 Order #: [id number] Location: [facility] Room #: 2NE18 Reading Physician: Karissa Mata DO Rn Transfer: LORENZO SerratoT, [facility] Ordering Physician: Ely Shields MD Primary Physician: Doris Kwon MD Indications: Edema Impressions: Technically challenging study with suboptimal windows. Overall, LV systolic function is normal EF 60%. Indeterminate diastolic function. RV size and function are normal. Medical history documents the patient is s/p porcine aortic valve replacement. By Doppler interrogation of the aortic valve, there is severe aortic stenosis (PV 4.4m/s, MG 44 mmHg, DI 0.29, MAYA 0.9cm2). Mild tricuspid regurgitation. At least mild pulmonary hypertension by TR gradient. IVC is not well visualized. No prior echo for comparison. Left Ventricular Wall Motion: Rest Echo Findings The mid anterior septal, mid inferior lateral, basal anterior septal and basal inferior lateral braxton were not visualized. All other wall segments showed normal motion. Findings: Study Quality * Technically sub-optimal due to body habitus. ECG Findings * Atrial fibrillation/flutter. Aortic Valve * No aortic regurgitation. * Prosthetic porcine aortic valve not well visualized. * Severe aortic stenosis by Doppler. Mitral Valve * Trace mitral regurgitation. * Mitral valve not well visualized. * No mitral stenosis. Tricuspid Valve * Tricuspid valve not well visualized. * Mild tricuspid regurgitation. Pulmonic Valve * Pulmonic valve is not well visualized. * No pulmonic stenosis. * No pulmonic regurgitation. Pulmonary Artery * Pulmonary artery not well visualized. Left Ventricle * LVEF 60%. * Normal LV chamber size, wall thickness and function. * Indeterminate diastolic function. Right Ventricle * Normal right ventricular structure and function. Right Atrium * Normal right atrial size. Left Atrium * Moderately dilated left atrium. Interatrial Septum * Interatrial septum not well evaluated. Pericardium * There is no pericardial effusion present. Aorta * Not well visualized. IVC * The IVC is not well evaluated. History Hypertension Diabetes Hypercholesteremia Family History of CAD Valvular Disease Valve Replacement AV Prosthesis Biologic Measurements: BP: 125/ 58 2D Normal Values LVIDd: 4.40 cm 3.7 - 5.6 cm LVIDs: 3.20 cm 1.5 - 3.6 cm LA: 4.60 cm 2.0 - 4.0cm %FS: 27.30 cm >25 % LVOT Diam: 2.00 cm LA volume: 85 Mitral Valve Peak Velocity 1.64 m/sec Mean Velocity:.87 m/sec Peak Grad:11.00 mmHg Mean Grad:4.00 mmHg Pressure Time:61.00 msec Dec Time:313.00 msec Valve Area:2.65 cm2 Peak E:1.51 m/sec Peak E' Lat Jerry:12 cm/s Peak E' Med Jerry:8.22 cm/s E/E' Lat Ratio:12.6 E/E' Med Ratio:18.4 LVOT Peak Jerry:1.20 m/sec Mean Jerry:.81 m/sec Peak Grad:6.00 mmHg Mean Grad:3.00 mmHg Aortic Valve Peak Jerry:4.69 m/sec Mean Jerry:3.28 m/sec Peak Grad:88.00 mmHg Mean Grad:50.00 mmHg Valve Area:.95 cm2 Tricuspid Valve TV Regurg Peak Grad: 44.00mmHg TV Regurg Peak Jerry: 3.30m/sec Updated by Karissa Mata on 06/29/2016 11:23:59 AM electronically signed on 06/29/2016 11:25:19 AM with status of Final Wall Motion [place]: 1=Normal, 2=Hypokinesis, 3=Akinesis, 4=Dyskinesis, 5=Aneurysmal, 6=Hyperkinetic, X=Not Visualized (Blank)=Missing
[2016-06-29 11:46] VITALS: BP 129/62
--- NOTE | 2016-06-30 09:42 | Electrocardiograph Report ---
[facility] [employer] [facility] Test Date: 2016-06-27 Pat Name: Stevie Gonzalez Department: 102 Room: 2NE18 Gender: M Behavior Support Specialist: : [id number] Requested By: Camilo Tapia Order Number: [id number] Reading MD: Ervin Kate MD Measurements Intervals [place] Rate: 63 P: MN: 0 QRS: 19 QRSD: 132 T: 132 QT: 426 QTc: 433 Interpretive Statements ATRIAL FLUTTER/TACHYCARDIA INTRAVENTRICULAR CONDUCTION DELAY [130+ ms QRS DURATION] POSSIBLE ANTERIOR MYOCARDIAL INFARCTION [30 ms Q WAVE IN V3/V4, OR R < 0.2 mV IN V4], OF INDETERMINATE AGE Electronically Signed On 06-30-2016 9:40:35 EDT by Ervin Kate MD
== END 2016-06-29 14:03 | disposition home health service (06) ==
LOC: EMEROO 13:48 → 2NENU 13:48
PROVIDERS: ADMIT Internal Medicine; ATTEND Internal Medicine

== ENCOUNTER 2017-06-26 11:03 | Inpatient (IN) ==
--- NOTE | 2017-06-26 11:27 | Emergency Department Note ---
START Narrative - START START: I examined this patient and my medical decision-making was reviewed with the AIR COMPRESSOR OPERATOR/PA/Advanced Practice Nurse/Resident Physician. I agree with the documented findings, disposition and treatment plan as described except to the extent set forth below. I did see the patient upon arrival and spoke with the family and the aid and the patient does have significant concern for sepsis with a temperature 102 degrees and a blood pressure systolic 80 and testing will be initiated along with IV fluids and antibiotics. I did review the EKG showing atrial fibrillation with rate of 94 and was some T-wave inversions in the anterior lateral distribution 1127 I have been to see the patient multiplications. His blood pressure has decreased to a low SYSTOLIC 65. The patient is still getting IV fluids and has been started on a starting dose of levodopa that her peripheral line. The family has made the patient DNRarrest. critical care time: 30 minutes. Diagnosis septic shock, urinary tract infection 1422 Patient's hypertension did persist and so central line was placed right femoral under ultrasound guidance on the second attempt and this was done with my supervision for the important parts of the procedure. No complications. 1634
[2017-06-26] MEDS ORDERED: Piperacillin/Tazobactam 3.375 GM in 0.9 % Sodium Chloride Mini Bag 100 ML IVPB ONE (11:39)
[2017-06-26] MEDS ORDERED: 0.9 % Sodium Chloride 1,000 ML IVC ONE ×2 (11:41→12:43)
--- NOTE | 2017-06-26 11:42 | Emergency Department Note ---
Disposition Clinical Impression: Septic shock Chronic kidney disease Qualifiers: Chronic kidney disease stage: stage 3 (moderate) Qualified Code(s): N18.3 - Chronic kidney disease, stage 3 (moderate) UTI (urinary tract infection) Qualifiers: Urinary tract infection type: site unspecified Hematuria presence: without hematuria Qualified Code(s): N39.0 - Urinary tract infection, site not specified Disposition: Admitted As Inpatient Condition: Critical Time of Disposition: 17:59 General Adult HPI - General Chief complaint: ED Weakness Stated complaint: Weakness Time Seen by Provider: 06/26/17 11:09 Source: EMS Mode of arrival: EMS Limitations: no limitations Nursing Notes Reviewed: Yes Vital Signs Reviewed: Yes - History of Present Illness HPI Narrative: Patient is an 86-year-old male with a past medical history significant for hypothyroidism, HTN, DM, HLD, chronic renal insufficiency stage III, aortic valve replacement, and invasive high-grade urothelial carcinoma brought into the ED by squad family is concerned the patient has been sleeping since 5 PM yesterday and this morning when they went to wake him his systolic blood pressure was in the low 60-70's systolic. He stated the patient recently was discharged from the hospital is being treated for kidney failure second dairy to accidentally overdosing on Ultram. They state since being discharged the patient has had 2 Knapp is placed with the most recent Knapp being 2 days ago. States that he has had decreased urine output and his urine has been dark. Patient states it is mainly just felt weak overnight and very tired. He denies any pain. Pain Scale: 7 - Related Data Home Medications Medication Instructions Recorded Confirmed B Complex with Vitamin C [Vitamin 1 each PO DAILY 12/18/15 06/26/17 B-Complex & C] Cranberry Fruit Extract [Cranberry] 500 mg PO DAILY 12/18/15 06/26/17 Cyanocobalamin (Vitamin B-12) 5,000 mcg SL DAILY 12/18/15 06/26/17 [Vitamin B-12] Gabapentin [Neurontin] 300 mg PO HS 12/18/15 06/26/17 Garlic 1,000 mg PO DAILY 12/18/15 06/26/17 Ginkgo Biloba 60 mg PO DAILY 12/18/15 06/26/17 Gluc Lemos/MSM/Magnesium/Vit C 2 each PO DAILY 12/18/15 06/26/17 [Glucosamine Complex-MSM Cap] Insulin Glargine,Hum.rec.anlog 40 unit SQ HS 12/18/15 06/26/17 [Lantus Solostar] Insulin LISPRO [Humalog] 35 unit SQ TID 12/18/15 06/26/17 Metoprolol XL (24 HR) Succ [Toprol 37.5 mg PO BID 12/18/15 06/26/17 Xl] Nortriptyline [Pamelor] 25 mg PO HS 12/18/15 06/26/17 Tumeric-Curcumin Complex 1 tab PO DAILY 12/18/15 06/26/17 Vit C/E/Zn/Coppr/Lutein/Zeaxan 2 cap PO DAILY 12/18/15 06/26/17 [Preservision Areds 2 Softgel] Atorvastatin Calcium [Lipitor] 80 mg PO HS 01/15/16 06/26/17 Multivit-Min/Iron Fum/Folic AC 1 each PO DAILY 01/15/16 06/26/17 [Uflav-Spflvku-Yzdxzmbe Tablet] Enalapril Maleate [Vasotec] 10 mg PO DAILY 04/18/16 06/26/17 Fenofibrate [Lofibra] 160 mg PO DAILY 04/18/16 06/26/17 Ranitidine HCl [Heartburn Relief] 150 mg PO DAILY 04/18/16 06/26/17 Levothyroxine [Levothyroxine 125 mcg PO DAILY@0630 06/27/16 06/26/17 Sodium] Lutein/Zeaxanthin 1 each PO DAILY 06/27/16 06/26/17 [Lutein-Zeaxanthin 25-5 mg Sfgl] Apixaban [Eliquis] 2.5 mg PO BID 12/26/16 06/26/17 Bumetanide [Bumex] 1 mg PO BID 12/26/16 06/26/17 Acetaminophen [Tylenol Arthritis] 650 mg PO BID 05/12/17 06/26/17 Folic Acid 1 mg PO DAILY 05/12/17 06/26/17 Cephalexin [Keflex] 500 mg PO QID 06/26/17 06/26/17 Iron 65 mg PO DAILY 06/26/17 06/26/17 Tramadol HCl [Ultram] 50 mg PO TID PRN 06/26/17 06/26/17 Previous Rx's Medication Instructions Recorded Finasteride [Proscar] 5 mg PO DAILY #7 tablet 06/18/17 Tamsulosin [Flomax] 0.4 mg PO DAILY #7 cap.er.24h 06/18/17 Allergies Allergy/AdvReac Type Severity Reaction Status Date / Time No Known Allergies Allergy Verified 06/26/17 13:07 All systems ED: reviewed and negative except as stated. Review of Systems: As Per HPI Constitutional: Reports: fever, chills, weakness ENT ED: Denies: congestion Cardiovascular: Denies: chest pain, palpitations Respiratory: Denies: cough, dyspnea Gastrointestinal: Denies: abdominal pain, nausea, vomiting Genitourinary: Reports: other (decreased UOP) Musculoskeletal: Denies: back pain Integumentary: Reports: rash (patient has ulcer's near gluteal cleft. ) Neurological: Denies: headache Past Medical History - Past Medical History Attestation: Yes The following information was validated with the patient. Medical history: Reports: cancer, diabetes, GERD, hyperlipidemia, hypertension, renal disease, thyroid disease, valvular heart disease, other Surgical history: Reports: carotid endarterectomy, knee replacement, orthopedic , other, prostatectomy, vascular surgery, other Psychiatric history: Reports: no psych history - Social History Smoking Status: Never smoker Smokeless Tobacco Status: No Alcohol use: Reports: none Drug use: Reports: none Physical Exam Patient is laying in bed, he is laying flat in bed with his eyes closed and appears to be resting however he is easily arousable and he will answer questions appropriately. His blood pressure is borderline hypotensive at this time at 108/60 otherwise vitals are stable at this time. - General Limitations: no limitations General appearance: alert - Head Head exam: atraumatic, normocephalic, normal inspection - Eye Eye exam: Present: normal appearance, PERRL, EOMI - ENT ENT exam: mucous membranes dry - Neck Neck exam: Present: normal inspection, full ROM, trachea midline. Absent: tenderness - Chest Chest inspection: Present: normal inspection. Absent: symmetric chest wall rise , tenderness - Respiratory Respiratory exam: Present: normal lung sounds bilaterally. Absent: respiratory distress, wheezes - Cardiovascular Cardiovascular exam: Present: regular rate, normal rhythm, +S1, +S2 - Abdominal Exam Abdominal exam: Present: soft, Non-Tender, normal bowel sounds - Male exam: Present: other (Patient has a Knapp catheter in place. There is some surrounding dried blood from the tip of his urethra. Scrotal exam is normal.) - Extremities Exam Extremities exam: Present: normal capillary refill, pedal edema (1+ pitting edema bilaterally). Absent: tenderness - Back Exam Back exam: Present: normal inspection. Absent: tenderness - Neurological Exam Neurological exam: Present: alert, oriented X3 - Psychiatric Psychiatric exam: Present: normal affect, normal mood - Skin Skin exam: Present: warm, dry, normal color, other (Patient has a ulcer in the superior portion of his gluteal cleft does not appear to be infectious at this time. There is no visible drainage and there is no surrounding erythema, induration or fluctuance.) Course Course Narrative: The patient's current presentation and history of fever with hypotension plan is to treat the patient as if he is not septic shock. We will order basic labs including a lactate and added on blood cultures. We will also check a urine. We will initiate IV fluid boluses starting with 1 L bolus and reassessed patient 's blood pressure once finished. We will also start the patient empiric antibiotics including Zosyn and vancomycin. Suspected source of infection is possibly urinary tract infection. - Reevaluation(s) Reevaluation #1: On reevaluation of the patient after receiving a 500 mL liter bolus he remains hypotensive with a systolic in the 60s. Patient will be given an additional 1.5 L bolus we will reevaluate and 15 minutes. Patient may require a central line. Time: 12:56 Reevaluation #2: After first 2 liters of normal saline patient's blood pressure initially improved to systolic 120's. However, continues to be labile. Plan start the patient on low-dose levophed. Patient also has a leukocytosis as well as an elevated troponin. His EKG did not show any new ischemic changes. Patient also has an elevated creatinine however when compared to prior creatinines this is consistent with the patient's current kidney disease. He will be admitted for urinary tract infection and septic shock. Initial lactate was normal. Time: 14:00 Reevaluation #3: Discussed with Dr. Woods he will accept the patient to the ICU. A central line was placed in the right femoral vein with ultrasound guidance. CT of the abdomen and pelvis without contrast was ordered at the request of the laborer livestock. The patient was even additional 2 L bolus with central line placement. Blood pressure at this time is 100/60. It is improved with fluid bolus continue to monitor the patient please transferred to the ICU for. Discussed with the family the empiric treatment of the patient for a possible urinary tract infection and septic shock. During the patient's stay long discussions were had with the family and the patient involved in his CODE STATUS was changed from full code to DNR- CC ArrestDNI. Time: 17:59 Vital Signs Temperature 97.6 F 06/26/17 11:05 Pulse Rate 94 06/26/17 11:05 Respiratory Rate 20 06/26/17 11:05 Blood Pressure 108/60 06/26/17 11:05 O2 Sat by Pulse Oximetry 100 06/26/17 11:05 Temperature 97.6 F 06/26/17 11:05 Pulse Rate 84 06/26/17 14:48 Respiratory Rate 20 06/26/17 17:59 Blood Pressure 107/48 06/26/17 17:59 O2 Sat by Pulse Oximetry 98 06/26/17 14:48 Oxygen Delivery Oxygen Delivery Nasal Cannula Procedures - Central Line Placement Right Femoral Central Line Inserted*: Yes Central Line Catheter Replacement*: Yes Central Line Insertion: emergent Consent Obtained: written consent Procedural Pause: verify patient name and date of , timeout performed per policy, cooper and assess the site, assemble equipment and verify supplies, perform hand hygiene Patient Placed on Monitor/Pulse Ox: Yes During the Procedure: clinician is wearing sterile gloves, cap, mask,& gown during insertion, sterile field and sterile technique are maintained, patient's face is covered with drape or mask and wearing a cap, everyone in room is wearing a mask Central Line Prep: Chlorhexidine scrub, sterile drapes applied Prep the Procedure Site: apply chloraprep to the skin using a back and forth scrubbing motion, apply chloraprep for 30 seconds (upper body), 1-2 min ( femoral sites), allow prep to dry, drape the patient with a full body drape Local Anesthetic: lidocaine 1% Amount of anesthesia used (mL): 5 Ultrasound Used for Placement: Yes Central Line Lumen Inserted: triple Post Procedure: sutured in place, good blood return, all ports aspirated, flushed, capped, sterile dressing applied, guide wire removed and visualized, dressing is dated Post Procedure X-Ray: tip of catheter in good position (via CT abdomen and pelvis) Patient Tolerated Procedure: well, no complications Complications: none Name of Clinician Inserting Central Line: Dr. Stoney Carrillo D.O. Clinician Assisting/Completing Checklist: Dr. Mati Smith and Dr. Ton Escobedo Date: 06/26/17 Time: 18:01 Medical Decision Making - Medical Records Medical records reviewed: Yes I reviewed the patient's medical records. - Lab Data Lab results reviewed: Yes I reviewed the patient's lab results. Result diagrams: 06/26/17 12:03 06/26/17 12:03 Lab Results 06/26/17 06/26/17 06/26/17 Range/Units 12:03 12:03 12:03 WBC 15.2 H (4.3-11.1) K/mcL RBC 2.92 L (4.19-5.50) M/mcL Hgb 10.0 L (12.9-16.9) g/dL Hct 31.1 L (37.5-50.1) % MCV 106.5 H (83.0-100.0) fL MCH 34.2 H (28.0-33.3) pg MCHC 32.2 (31.6-35.5) g/dL RDW 16.2 H (11.5-14.5) % Plt Count 303 (140-400) K/mcL MPV 10.1 (9.4-12.4) fL Immature Gran % 0.8 (0-4) % Seg Neutrophils % 95.3 % Lymphocytes % 0.9 % Monocytes % 2.0 % Eosinophils % 0.7 % Basophils % 0.3 % Neutrophils # 14.5 H (1.6-8.9) K/mcL Lymphocytes # 0.1 L (0.6-4.6) K/mcL Monocytes # 0.3 (0.0-1.3) K/mcL Eosinophils # 0.1 (0.0-0.6) K/mcL Basophils # 0.1 (0.0-0.2) K/mcL Sodium 132 L (136-145) mEq/L Potassium 4.6 (3.5-5.1) mEq/L Chloride 96 L (98-107) mEq/L Carbon Dioxide 24 (23-29) mEq/L BUN 75 H (8-23) mg/dL Creatinine 2.14 H (0.70-1.30) mg/dL Est GFR ( Amer) 36 L (> 60) Est GFR (Non-Af Amer) 30 L (> 60) BUN/Creatinine Ratio 35 H (6-26) Glucose 158 H (70-105) mg/dL Calculated Osmolality 300 (280-300) Lactic Acid (0.5-2.2) mmol/L Calcium 8.8 (8.6-10.3) mg/dL Phosphorus (2.7-4.5) mg/dL Magnesium (1.6-2.6) mg/dL Total Bilirubin (0.3-1.0) mg/dL Direct Bilirubin (0.0-0.2) mg/dL Indirect Bilirubin (0.0-1.2) mg/dL AST (13-39) Units/L ALT (7-52) Units/L Alkaline Phosphatase (34-104) Units/L Troponin I 1.50 H* (< 0.04) ng/mL B-Natriuretic Peptide 351 H (Less than 100) pg/mL Serum Total Protein (6.4-8.9) g/dL Albumin (3.5-5.7) g/dL Globulin (2.4-3.5) g/dL Albumin/Globulin Ratio (1.1-2.2) Urine Color (Yellow) Urine Clarity (Clear) Urine pH (5.0-8.0) pH Units Ur Specific [place] (1.010-1.025) Urine Protein (Neg-Trace) mg/dL Urine Glucose (UA) (Normal) mg/dL Urine Ketones (Negative) mg/dL Urine Blood (Negative) Urine Nitrite (Negative) Urine Bilirubin (Negative) Urine Urobilinogen (Normal) mg/dL Ur Leukocyte Esterase (Negative) Urine Microscopic RBC (0-3) per hpf Urine Microscopic WBC (0-3) per hpf Ur Squamous Epith Cells (None-Few) per lpf Ur Transition Epith Cell (None-Few) per hpf Urine Bacteria (None-Few) per hpf 06/26/17 06/26/17 06/26/17 Range/Units 12:03 12:03 12:20 WBC (4.3-11.1) K/mcL RBC (4.19-5.50) M/mcL Hgb (12.9-16.9) g/dL Hct (37.5-50.1) % MCV (83.0-100.0) fL MCH (28.0-33.3) pg MCHC (31.6-35.5) g/dL RDW (11.5-14.5) % Plt Count (140-400) K/mcL MPV (9.4-12.4) fL Immature Gran % (0-4) % Seg Neutrophils % % Lymphocytes % % Monocytes % % Eosinophils % % Basophils % % Neutrophils # (1.6-8.9) K/mcL Lymphocytes # (0.6-4.6) K/mcL Monocytes # (0.0-1.3) K/mcL Eosinophils # (0.0-0.6) K/mcL Basophils # (0.0-0.2) K/mcL Sodium (136-145) mEq/L Potassium (3.5-5.1) mEq/L Chloride (98-107) mEq/L Carbon Dioxide (23-29) mEq/L BUN (8-23) mg/dL Creatinine (0.70-1.30) mg/dL Est GFR ( Amer) (> 60) Est GFR (Non-Af Amer) (> 60) BUN/Creatinine Ratio (6-26) Glucose (70-105) mg/dL Calculated Osmolality (280-300) Lactic Acid 2.1 (0.5-2.2) mmol/L Calcium (8.6-10.3) mg/dL Phosphorus 4.3 (2.7-4.5) mg/dL Magnesium 1.9 (1.6-2.6) mg/dL Total Bilirubin 0.8 (0.3-1.0) mg/dL Direct Bilirubin 0.3 H (0.0-0.2) mg/dL Indirect Bilirubin 0.5 (0.0-1.2) mg/dL AST 157 H (13-39) Units/L ALT 96 H (7-52) Units/L Alkaline Phosphatase 78 (34-104) Units/L Troponin I (< 0.04) ng/mL B-Natriuretic Peptide (Less than 100) pg/mL Serum Total Protein 6.2 L (6.4-8.9) g/dL Albumin 2.8 L (3.5-5.7) g/dL Globulin 3.4 (2.4-3.5) g/dL Albumin/Globulin Ratio 0.8 L (1.1-2.2) Urine Color Dark Yellow (Yellow) Urine Clarity Turbid A (Clear) Urine pH 5.5 (5.0-8.0) pH Units Ur Specific [place] 1.020 (1.010-1.025) Urine Protein 100 H (Neg-Trace) mg/dL Urine Glucose (UA) Normal (Normal) mg/dL Urine Ketones Negative (Negative) mg/dL Urine Blood Large H (Negative) Urine Nitrite Negative (Negative) Urine Bilirubin Negative (Negative) Urine Urobilinogen Normal (Normal) mg/dL Ur Leukocyte Esterase Large H (Negative) Urine Microscopic RBC TNTC H (0-3) per hpf Urine Microscopic WBC TNTC H (0-3) per hpf Ur Squamous Epith Cells Moderate H (None-Few) per lpf Ur Transition Epith Cell Moderate H (None-Few) per hpf Urine Bacteria None Seen (None-Few) per hpf 06/26/17 Range/Units 16:37 WBC (4.3-11.1) K/mcL RBC (4.19-5.50) M/mcL Hgb (12.9-16.9) g/dL Hct (37.5-50.1) % MCV (83.0-100.0) fL MCH (28.0-33.3) pg MCHC (31.6-35.5) g/dL RDW (11.5-14.5) % Plt Count (140-400) K/mcL MPV (9.4-12.4) fL Immature Gran % (0-4) % Seg Neutrophils % % Lymphocytes % % Monocytes % % Eosinophils % % Basophils % % Neutrophils # (1.6-8.9) K/mcL Lymphocytes # (0.6-4.6) K/mcL Monocytes # (0.0-1.3) K/mcL Eosinophils # (0.0-0.6) K/mcL Basophils # (0.0-0.2) K/mcL Sodium (136-145) mEq/L Potassium (3.5-5.1) mEq/L Chloride (98-107) mEq/L Carbon Dioxide (23-29) mEq/L BUN (8-23) mg/dL Creatinine (0.70-1.30) mg/dL Est GFR ( Amer) (> 60) Est GFR (Non-Af Amer) (> 60) BUN/Creatinine Ratio (6-26) Glucose (70-105) mg/dL Calculated Osmolality (280-300) Lactic Acid 1.4 (0.5-2.2) mmol/L Calcium (8.6-10.3) mg/dL Phosphorus (2.7-4.5) mg/dL Magnesium (1.6-2.6) mg/dL Total Bilirubin (0.3-1.0) mg/dL Direct Bilirubin (0.0-0.2) mg/dL Indirect Bilirubin (0.0-1.2) mg/dL AST (13-39) Units/L ALT (7-52) Units/L Alkaline Phosphatase (34-104) Units/L Troponin I (< 0.04) ng/mL B-Natriuretic Peptide (Less than 100) pg/mL Serum Total Protein (6.4-8.9) g/dL Albumin (3.5-5.7) g/dL Globulin (2.4-3.5) g/dL Albumin/Globulin Ratio (1.1-2.2) Urine Color (Yellow) Urine Clarity (Clear) Urine pH (5.0-8.0) pH Units Ur Specific [place] (1.010-1.025) Urine Protein (Neg-Trace) mg/dL Urine Glucose (UA) (Normal) mg/dL Urine Ketones (Negative) mg/dL Urine Blood (Negative) Urine Nitrite (Negative) Urine Bilirubin (Negative) Urine Urobilinogen (Normal) mg/dL Ur Leukocyte Esterase (Negative) Urine Microscopic RBC (0-3) per hpf Urine Microscopic WBC (0-3) per hpf Ur Squamous Epith Cells (None-Few) per lpf Ur Transition Epith Cell (None-Few) per hpf Urine Bacteria (None-Few) per hpf - Radiology Data Radiology results reviewed: Yes I reviewed the patient's radiology results. Chest X-Ray 06/26/17 11:28 IMPRESSION: No acute process. D/ / Marcin West MD / Marcin West MD Interpreting Provider: Marcin West MD Chest X-Ray 06/26/17 11:28 IMPRESSION: No acute process. D/ / Marcin West MD / Marcin West MD Interpreting Provider: Marcin West MD - EKG Data EKG #1 EKG attestation: Yes I reviewed and interpreted this EKG. EKG results narrative: Patient's EKG shows a rate of 94 beats per minutes A flutter. QRS is 138, QT is 363 and QTc is 415 these are within normal limits. No signs of ST elevation , depression or Q waves at this time this EKG is unchanged from EKG done on 10/2017
[2017-06-26 12:35] LABS: Basophils # 0.1 K/mcL (0.0-0.2); Basophils % 0.3 %; Eosinophils # 0.1 K/mcL (0.0-0.6); Eosinophils % 0.7 %; Hematocrit 31.1 % (37.5-50.1); Immature Granulocytes % 0.8 % (0-4); Lymphocytes # 0.1 K/mcL (0.6-4.6); Lymphocytes % 0.9 %; Mean Corpuscular HGB Conc 32.2 g/dL (31.6-35.5); Mean Corpuscular Hemoglobin 34.2 pg (28.0-33.3); Mean Corpuscular Volume 106.5 fL (83.0-100.0); Mean Platelet Volume 10.1 fL (9.4-12.4); Monocytes # 0.3 K/mcL (0.0-1.3); Neutrophils # 14.5 K/mcL (1.6-8.9); Platelet Count 303 K/mcL (140-400); Red Blood Count 2.92 M/mcL (4.19-5.50); Red Cell Distribution Width 16.2 % (11.5-14.5); Segmented Neutrophils % 95.3 %
[2017-06-26 12:41] LABS: Bilirubin,Urine Negative (Negative); Blood,Urine Large (Negative); Clarity,Urine Turbid (Clear); Color,Urine Dark Yellow (Yellow); Glucose,Urine (UA) Normal (Normal); Ketones,Urine Negative (Negative); Leukocyte Esterase,Urine Large (Negative); Nitrite,Urine Negative (Negative); PH,Urine 5.5 pH Units (5.0-8.0); Protein,Urine 100 mg/dL (Neg-Trace); Urobilinogen,Urine Normal (Normal)
[2017-06-26 12:44] LABS: Bacteria,Urine None Seen per hpf (None-Few); Squamous Epithelial Cell,Urine Moderate per lpf (None-Few); WBC,Urine TNTC per hpf (0-3)
[2017-06-26 12:53] LABS: RBC,Urine TNTC per hpf (0-3); Transitional Epi Cells,Urine Moderate per hpf (None-Few)
[2017-06-26 12:58] LABS: Albumin 2.8 g/dL (3.5-5.7); Albumin/Globulin Ratio 0.8 (1.1-2.2); Bilirubin,Direct 0.3 mg/dL (0.0-0.2); Bilirubin,Indirect 0.5 mg/dL (0.0-1.2); Bilirubin,Total 0.8 mg/dL (0.3-1.0); Globulin 3.4 g/dL (2.4-3.5); Magnesium 1.9 mg/dL (1.6-2.6); Phosphorous 4.3 mg/dL (2.7-4.5); Total Protein 6.2 g/dL (6.4-8.9)
[2017-06-26 13:08] LABS: Calcium 8.8 mg/dL (8.6-10.3); Potassium 4.6 mEq/L (3.5-5.1)
[2017-06-26 13:15] LABS: Troponin I 1.5 ng/mL (< 0.04)
--- NOTE | 2017-06-26 15:21 | Pulmonology History & Physical ---
<Edson Win M - Last Filed: 06/26/17 16:00> Date of Encounter: 06/26/17 History of Present Illness HPI: Mr. Gonzalez is a 86 year old male Medications and Allergies B Complex with Vitamin C [Vitamin B-Complex & C] 1 each PO DAILY 12/18/15 [ History] Cranberry Fruit Extract [Cranberry] 500 mg PO DAILY 12/18/15 [History] Cyanocobalamin (Vitamin B-12) [Vitamin B-12] 5,000 mcg SL DAILY 12/18/15 [ History] Gabapentin [Neurontin] 300 mg PO HS 12/18/15 [History] Garlic 1,000 mg PO DAILY 12/18/15 [History] Ginkgo Biloba 60 mg PO DAILY 12/18/15 [History] Gluc Lemos/MSM/Magnesium/Vit C [Glucosamine Complex-MSM Cap] 2 each PO DAILY [History] Insulin Glargine,Hum.rec.anlog [Lantus Solostar] 40 unit SQ HS 12/18/15 [History ] Insulin LISPRO [Humalog] 35 unit SQ TID 12/18/15 [History] Metoprolol XL (24 HR) Succ [Toprol Xl] 37.5 mg PO BID 12/18/15 [History] Nortriptyline [Pamelor] 25 mg PO HS 12/18/15 [History] Tumeric-Curcumin Complex 1 tab PO DAILY 12/18/15 [History] Vit C/E/Zn/Coppr/Lutein/Zeaxan [Preservision Areds 2 Softgel] 2 cap PO DAILY 09/26 [History] Atorvastatin Calcium [Lipitor] 80 mg PO HS 01/15/16 [History] Multivit-Min/Iron Fum/Folic AC [Zyzvb-Tmsbdbf-Mfgdltsv Tablet] 1 each PO DAILY 01/15/16 [History] Enalapril Maleate [Vasotec] 10 mg PO DAILY 04/18/16 [History] Fenofibrate [Lofibra] 160 mg PO DAILY 04/18/16 [History] Ranitidine HCl [Heartburn Relief] 150 mg PO DAILY 04/18/16 [History] Levothyroxine [Levothyroxine Sodium] 125 mcg PO DAILY@0630 06/27/16 [History] Lutein/Zeaxanthin [Lutein-Zeaxanthin 25-5 mg Sfgl] 1 each PO DAILY 06/27/16 [ History] Apixaban [Eliquis] 2.5 mg PO BID 12/26/16 [History] Bumetanide [Bumex] 1 mg PO BID 12/26/16 [History] Acetaminophen [Tylenol Arthritis] 650 mg PO BID 05/12/17 [History] Folic Acid 1 mg PO DAILY 05/12/17 [History] Finasteride [Proscar] 5 mg PO DAILY #7 tablet 06/18/17 [Rx] Tamsulosin [Flomax] 0.4 mg PO DAILY #7 cap.er.24h 06/18/17 [Rx] Cephalexin [Keflex] 500 mg PO QID 06/26/17 [History] Iron 65 mg PO DAILY 06/26/17 [History] Tramadol HCl [Ultram] 50 mg PO TID PRN 06/26/17 [History] 3 Allergy/AdvReac Type Severity Reaction Status Date / Time No Known Allergies Allergy Verified 06/26/17 13:07 All Systems: The remainder of the systems were reviewed and are negative Physical Examination Vital Signs: Vital Signs, Last 4 Hours Pulse Resp BP Pulse Ox 06/26/17 14:48 84 83/48 98 06/26/17 14:00 96 20 78/43 95 06/26/17 13:12 84 22 95/48 94 06/26/17 13:07 76 20 124/91 95 06/26/17 12:46 73 20 65/27 94 Results - Laboratory Findings CBC and BMP: 06/26/17 12:03 06/26/17 12:03 Abnormal lab findings: Abnormal lab results WBC 15.2 K/mcL (4.3-11.1) H 06/26/17 12:03 RBC 2.92 M/mcL (4.19-5.50) L 06/26/17 12:03 Hgb 10.0 g/dL (12.9-16.9) L 06/26/17 12:03 Hct 31.1 % (37.5-50.1) L 06/26/17 12:03 MCV 106.5 fL (83.0-100.0) H 06/26/17 12:03 MCH 34.2 pg (28.0-33.3) H 06/26/17 12:03 RDW 16.2 % (11.5-14.5) H 06/26/17 12:03 Neutrophils # 14.5 K/mcL (1.6-8.9) H 06/26/17 12:03 Lymphocytes # 0.1 K/mcL (0.6-4.6) L 06/26/17 12:03 Sodium 132 mEq/L (136-145) L 06/26/17 12:03 Chloride 96 mEq/L (98-107) L 06/26/17 12:03 BUN 75 mg/dL (8-23) H 06/26/17 12:03 Creatinine 2.14 mg/dL (0.70-1.30) H 06/26/17 12:03 Est GFR ( Amer) 36 (> 60) L 06/26/17 12:03 Est GFR (Non-Af Amer) 30 (> 60) L 06/26/17 12:03 BUN/Creatinine Ratio 35 (6-26) H 06/26/17 12:03 Glucose 158 mg/dL (70-105) H 06/26/17 12:03 Direct Bilirubin 0.3 mg/dL (0.0-0.2) H 06/26/17 12:03 AST 157 Units/L (13-39) H 06/26/17 12:03 ALT 96 Units/L (7-52) H 06/26/17 12:03 Troponin I 1.50 ng/mL (< 0.04) H* 06/26/17 12:03 B-Natriuretic Peptide 351 pg/mL (Less than 100) H 06/26/17 12:03 Serum Total Protein 6.2 g/dL (6.4-8.9) L 06/26/17 12:03 Albumin 2.8 g/dL (3.5-5.7) L 06/26/17 12:03 Albumin/Globulin Ratio 0.8 (1.1-2.2) L 06/26/17 12:03 Urine Clarity Turbid (Clear) A 06/26/17 12:20 Urine Protein 100 mg/dL (Neg-Trace) H 06/26/17 12:20 Urine Blood Large (Negative) H 06/26/17 12:20 Ur Leukocyte Esterase Large (Negative) H 06/26/17 12:20 Urine Microscopic RBC TNTC per hpf (0-3) H 06/26/17 12:20 Urine Microscopic WBC TNTC per hpf (0-3) H 06/26/17 12:20 Ur Squamous Epith Cells Moderate per lpf (None-Few) H 06/26/17 12:20 Ur Transition Epith Cell Moderate per hpf (None-Few) H 06/26/17 12:20 - Attending Attestation I examined this patient and my medical decision-making was reviewed with the Resident Physician. I agree with the documented findings, disposition and treatment plan as described except to the extent set forth below. Patient seen and examined. I was called by the emergency room physician to assess this patient and admitted to ICU and patient was evaluated in the emergency room. Labs, radiology, chart personally reviewed. 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 GI: Nutrition per dietary and GI prophylaxis per routine Heme: DVT prophylaxis per routine. Poor prognosis. ID: Continue antibiotics and plan to de-escalation. Since patient is not hypertensive has not responded to the fluid yet, he will need more aggressive resuscitation and this was discussed with the ER staff and patient needs septic shock criteria with some evidence of hypoperfusion with mildly elevated lactic acid to be followed up in about 6 hours. Continue empiric antibiotics. Renal; urine out put and renal funtion reviewed Endorcine: blood glucose is monitored Lines: all lines checked and no evidence of infections Skin: skin care to prevent pressure ulcers per nursing routine care I have discussed with the family at the bedside. <Mati Smith - Last Filed: 06/26/17 17:36> Date of Encounter: 06/26/17 Time of Encounter: 15:21 Assessment and Plan (1) Septic shock due to undetermined organism Current visit: Yes Status: Acute Patient presents weak, lethargic, and tachypneic with leukocytosis, and has a known stage 2 decubitus ulcer on admission and chronic indwelling ugpta catheter who is found hypotensive refractory to 2 L fluid resuscitation requiring vasopressor Norepinephrine organism is unidentified at this time, chest x-ray does not reveal obvious pulmonary process will continue broad-spectrum antibiotic Vancomycin and Zosyn, pharm to dose urinalysis from Gupta catheter shows contamination with large leuk esterase, recent urine culture negative for infection decubitus ulcer stage II does not appear infected but cannot be excluded await CT of the abdomen and pelvis for possible infectious source blood cultures pending lactate 2.1, repeat pending displays evidence of some end organ dysfunction including elevated serum creatinine, elevated troponin 1.5, lethargy with hypotension (2) Hypotension Current visit: Yes Status: Acute patient remains hypotensive despite 2 L normal saline fluid resuscitation patient requires norepinephrine to maintain MAP >65 right femoral central venous catheter hold home antihypertensive medication lactate 2.1, repeat pending Qualifiers: Hypotension type: unspecified hypotension type Qualified Code(s): I95.9 - Hypotension, unspecified (3) Dehydration Current visit: Yes Status: Acute Patient has a element of dehydration requiring fluid resuscitation elevated BUN he has tried chapped lips and skin tenting (4) Bladder cancer Current visit: Yes Status: Chronic History of bladder cancer 1st diagnosed in 2016 with relapse patient originally underwent a total of [address] Graf Oncologist is Dr. Chaudhry reported most recent treatment 2 weeks ago Qualifiers: Bladder location: unspecified site Qualified Code(s): C67.9 - Malignant neoplasm of bladder, unspecified (5) CKD (chronic kidney disease) Current visit: Yes Status: Chronic Chronic renal insufficiency continue to monitor Qualifiers: Chronic kidney disease stage: stage 3 (moderate) Qualified Code(s): N18.3 - Chronic kidney disease, stage 3 (moderate) (6) Gupta catheter in place on admission Current visit: Yes Status: Acute (7) Chronic hypertension Current visit: Yes Status: Chronic hold home medications continue to monitor blood pressure (8) Diabetes mellitus Current visit: Yes Status: Chronic Continue to monitor blood glucose insulin sliding scale as needed Qualifiers: Diabetes mellitus type: other specified (including JEAN) Diabetes mellitus mcfp insulin use: unspecified mcfp insulin use status Diabetes mellitus complication status: with unspecified complications Qualified Code(s) : E13.8 - Other specified diabetes mellitus with unspecified complications (9) Elevated troponin I level Current visit: Yes Status: Acute Elevated troponin 1.5, possible demand ischemia in the presence of renal insufficiency will trend the troponin patient denies any chest pain, shortness of breath, diaphoresis or nausea denies history of prior cardiac ischemic disease EKG does not reveal any acute ischemic changes (10) H/O aortic valve replacement with porcine valve Current visit: Yes Status: Acute s/p porcine aortic valve 2007 (11) Pressure ulcer of coccygeal region, stage 2 Current visit: Yes Status: Acute Patient presented with decubitus ulcer to the coccygeal region on admission continuing nursing skin checks per ICU protocol (12) Chronic anemia Current visit: Yes Status: Chronic macrocytic chronic anemia, patient takes home vitamin B supplements and Iron continue to monitor H/H (13) DVT prophylaxis Current visit: Yes Status: Acute Patient normally takes Eliquis for presumed atrial fibrillation/flutter, will continue history of aortic valve replacement (14) Goals of care, counseling/discussion Current visit: Yes Status: Acute discussed with family at bedside patient's code status , daughter, 2 sons, and health aide at bedside for discussion, agreeable to change code status to [id number] DNI please see ED social worker psychiatric note for further details of discussion History of Present Illness Chief complaint: hypotension, weakness HPI: Mr. 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 Patient was recently admitted for overdose of tramadol which led to some kidney failure. He has a chronic indwelling Gupta that was recently replaced 2 days ago. He has had decrease urine output. Family also notes some decrease in appetite. He has been more simony went over the past 24 hours. No recent falls. He denies any headache, chest pain, shortness of breath, nausea or vomiting. He endorses some abdominal tenderness as well as sacral tenderness. He has a stage to cutis ulcer that he has been treating over the past several weeks. Denies any recent illness, cough or fevers at home. In the emergency department patient was found to be hypotensive with a systolic in the 60s to 70s. Patient was given a total of 2000 mL normal saline for fluid resuscitation. He continue to be hypotensive and was placed on push dose norepinephrine. He is being treated with empiric antibiotics vancomycin and Zosyn. Chest x-ray did not reveal pneumonia or pulmonary process. He does have elevated troponin 1.5. He meets septic shock with hypotension refractory to fluids requiring vasopressor Levophed. Lactate is 2.1. Past Med Surg Social Fam HX - Past Medical History Attestation: Yes The following information was validated with the patient. Source: patient, obtained from family Medical history: cancer (invasive urothelial), diabetes, GERD, hyperlipidemia, hypertension, renal disease, thyroid disease, valvular heart disease (porcine, aortic repair 2008 at [facility]), other Psychiatric history: no psych history - Past Surgical History Surgical History: carotid endarterectomy, knee replacement (bilateral), orthopedic, other, prostatectomy, vascular surgery, other - Social History Smoking Status: Never smoker Smokeless Tobacco Status: No Alcohol use: none Drug use: none - Family History Brother Living Status: Hx Family Cardiac Disorders: Yes All Systems: The remainder of the systems were reviewed and are negative - Constitutional Constitutional: fatigue, weakness, no anorexia, no snoring - Cardiovascular Cardiovascular: no chest pain, no diaphoresis, no dyspnea, no syncope - Respiratory Respiratory: no cough, no dyspnea - Gastrointestinal Gastrointestinal: abdominal pain, no hematemesis, no hematochezia, no nausea - Musculoskeletal Musculoskeletal: weakness, arthralgias (left knee) - Integumentary Integumentary: other (decubitus ulcer) Physical Examination Vital Signs: Vital Signs, Last 4 Hours Pulse Resp BP Pulse Ox 06/26/17 14:48 84 83/48 98 06/26/17 14:00 96 20 78/43 95 06/26/17 13:12 84 22 95/48 94 06/26/17 13:07 76 20 124/91 95 06/26/17 12:46 73 20 65/27 94 General appearance: no acute distress, alert, other (obesity) Eyes: nonicteric ENT: oropharynx dry Neck: supple Effort: normal Inspection: normal, other Auscultation: bilateral: clear, diminished breath sounds Cardiovascular: regular rate and rhythm, murmur noted (systolic), other (aortic click) Gastrointestinal: normoactive bowel sounds, tender (diffuse), other (gupta catheter in place) Integumentary: decubitus ulcer (sacrum, stage 2 with skin breakdown, no fluctuance) Extremities: no cyanosis, no ischemia or petechiae, edema (+1 bilateral lower extremities) Musculoskeletal: no deformities, ROM normal normal mental status, non-focal exam, pupils equal and round, motor strength normal and symmetric Results - Laboratory Findings CBC and BMP: 06/26/17 12:03 06/26/17 12:03 Abnormal lab findings: Abnormal lab results WBC 15.2 K/mcL (4.3-11.1) H 06/26/17 12:03 RBC 2.92 M/mcL (4.19-5.50) L 06/26/17 12:03 Hgb 10.0 g/dL (12.9-16.9) L 06/26/17 12:03 Hct 31.1 % (37.5-50.1) L 06/26/17 12:03 MCV 106.5 fL (83.0-100.0) H 06/26/17 12:03 MCH 34.2 pg (28.0-33.3) H 06/26/17 12:03 RDW 16.2 % (11.5-14.5) H 06/26/17 12:03 Neutrophils # 14.5 K/mcL (1.6-8.9) H 06/26/17 12:03 Lymphocytes # 0.1 K/mcL (0.6-4.6) L 06/26/17 12:03 Sodium 132 mEq/L (136-145) L 06/26/17 12:03 Chloride 96 mEq/L (98-107) L 06/26/17 12:03 BUN 75 mg/dL (8-23) H 06/26/17 12:03 Creatinine 2.14 mg/dL (0.70-1.30) H 06/26/17 12:03 Est GFR ( Amer) 36 (> 60) L 06/26/17 12:03 Est GFR (Non-Af Amer) 30 (> 60) L 06/26/17 12:03 BUN/Creatinine Ratio 35 (6-26) H 06/26/17 12:03 Glucose 158 mg/dL (70-105) H 06/26/17 12:03 Direct Bilirubin 0.3 mg/dL (0.0-0.2) H 06/26/17 12:03 AST 157 Units/L (13-39) H 06/26/17 12:03 ALT 96 Units/L (7-52) H 06/26/17 12:03 Troponin I 1.50 ng/mL (< 0.04) H* 06/26/17 12:03 B-Natriuretic Peptide 351 pg/mL (Less than 100) H 06/26/17 12:03 Serum Total Protein 6.2 g/dL (6.4-8.9) L 06/26/17 12:03 Albumin 2.8 g/dL (3.5-5.7) L 06/26/17 12:03 Albumin/Globulin Ratio 0.8 (1.1-2.2) L 06/26/17 12:03 Urine Clarity Turbid (Clear) A 06/26/17 12:20 Urine Protein 100 mg/dL (Neg-Trace) H 06/26/17 12:20 Urine Blood Large (Negative) H 06/26/17 12:20 Ur Leukocyte Esterase Large (Negative) H 06/26/17 12:20 Urine Microscopic RBC TNTC per hpf (0-3) H 06/26/17 12:20 Urine Microscopic WBC TNTC per hpf (0-3) H 06/26/17 12:20 Ur Squamous Epith Cells Moderate per lpf (None-Few) H 06/26/17 12:20 Ur Transition Epith Cell Moderate per hpf (None-Few) H 06/26/17 12:20 - Diagnostic Findings Chest x-ray: report reviewed, image reviewed
[2017-06-26] MEDS ORDERED: 0.9 % Sodium Chloride 2,000 ML ONE (15:49)
[2017-06-26] MEDS: 0.9 % Sodium Chloride 1,000 ML IVC SCH ×3 (16:02→20:31)
[2017-06-26] MEDS: Norepinephrine 4 MG in D5% in Water 250 ML IVC SCH (16:40)
[2017-06-26] MEDS ORDERED: Naloxone 0.4 MG/ML INJ IVP PRN (16:46)
[2017-06-26] MEDS ORDERED: Potassium Phosphate 44 MEQ in 0.9 % Sodium Chloride 250 ML IVPB PRN (16:48)
[2017-06-26] MEDS ORDERED: Vancomycin 1,750 MG in 0.9 % Sodium Chloride 250 ML IVPB SCH (17:00)
[2017-06-26] MEDS ORDERED: Pantoprazole 40 MG VIAL IVP ONE (17:22)
[2017-06-26] MEDS ORDERED: Piperacillin/Tazobactam 3.375 GM in 0.9 % Sodium Chloride Mini Bag 100 ML IVPB SCH ×2 (18:00→21:00)
[2017-06-26] MEDS: Apixaban 2.5 MG TABLET PO SCH (20:30)
[2017-06-26] MEDS ORDERED: Metoprolol XL (24 HR) Succ 25 MG TAB.ER.24H PO SCH (21:00)
[2017-06-26] MEDS ORDERED: NON-FORMULARY MEDICATION 1 EACH EACH (Atorvastatin Calcium [Lipitor] 80 MG) PO SCH (21:00)
[2017-06-26] MEDS ORDERED: Dextrose Gel 15 GM/37.5 ML TUBE PO PRN ×2 (21:05)
[2017-06-26] MEDS ORDERED: D5% in Water 1,000 ML IVC PRN (21:05)
[2017-06-26] MEDS ORDERED: *HR* Dextrose 50 % in Water (Syg) 50 ML SYRINGE IVP PRN (21:05)
[2017-06-26] MEDS: Piperacillin/Tazobactam 3.375 GM in 0.9 % Sodium Chloride Mini Bag 100 ML IVPB SCH (21:56)
[2017-06-27 04:00] LABS: Basophils % 0.2 %; Eosinophils # 0.1 K/mcL (0.0-0.6); Hematocrit 25.5 % (37.5-50.1); Immature Granulocytes % 0.7 % (0-4); Lymphocytes # 0.4 K/mcL (0.6-4.6); Lymphocytes % 3.5 %; Mean Corpuscular HGB Conc 32.2 g/dL (31.6-35.5); Mean Corpuscular Hemoglobin 34.3 pg (28.0-33.3); Mean Corpuscular Volume 106.7 fL (83.0-100.0); Mean Platelet Volume 9.6 fL (9.4-12.4); Monocytes # 0.5 K/mcL (0.0-1.3); Monocytes % 4.8 %; Neutrophils # 9.3 K/mcL (1.6-8.9); Platelet Count 252 K/mcL (140-400); Red Blood Count 2.39 M/mcL (4.19-5.50); Red Cell Distribution Width 16.3 % (11.5-14.5); Segmented Neutrophils % 89.8 %
[2017-06-27 04:05] LABS: Hemoglobin 8.2 g/dL (12.9-16.9)
[2017-06-27 04:23] LABS: Albumin 2.2 g/dL (3.5-5.7); Albumin/Globulin Ratio 0.8 (1.1-2.2); Bilirubin,Direct 0.3 mg/dL (0.0-0.2); Bilirubin,Indirect 0.4 mg/dL (0.0-1.2); Bilirubin,Total 0.7 mg/dL (0.3-1.0); Calcium 7.8 mg/dL (8.6-10.3); Globulin 2.8 g/dL (2.4-3.5); Potassium 4.4 mEq/L (3.5-5.1)
[2017-06-27] MEDS: Insulin LISPRO 300 UNITS/3 ML VIAL SQ SCH ×5 (04:27→20:29)
[2017-06-27] MEDS: 0.9 % Sodium Chloride 1,000 ML IVC SCH ×7 (04:34→23:13)
[2017-06-27] MEDS: Piperacillin/Tazobactam 3.375 GM in 0.9 % Sodium Chloride Mini Bag 100 ML IVPB SCH ×3 (06:02→19:52)
--- NOTE | 2017-06-27 08:16 | Pulmonology Progress Note ---
Date of Encounter: 06/27/17 Time of Encounter: 07:30 Assessment and Plan (1) Septic shock Current Visit: Yes Status: Resolved Patient clinically is doing better and he is off pressors at this time, to continue IV fluid and oral diet and continue supportive care at this time and hoping the next 24-hour he will remain stable to be transferred to the floor. (2) Elevated troponin I level Current Visit: Yes Status: Acute This is could be multifactorial from septic shock and since he has underlying cardiovascular disease, we will check echocardiogram and also cardiology consultation consideration. I believe this would be recommended for management. Subjective Principal diagnosis: Septic shock Interval history: Patient is doing better and off the vasopressors and denies any other problems. Objective PUL Vital signs: Last Vital Signs Temp 99.6 F 06/27/17 04:36 Pulse 96 06/27/17 08:00 Resp 16 06/27/17 08:00 BP 89/45 06/27/17 08:00 Pulse Ox 100 06/27/17 08:00 General appearance: no acute distress ENT: oropharynx moist Neck: supple Effort: normal Auscultation: bilateral: diminished breath sounds Percussion: bilateral: not dull Cardiovascular: irregular rhythm Gastrointestinal: normoactive bowel sounds, non-distended Extremities: no cyanosis normal mental status mood appropriate Results - Laboratory Findings CBC and BMP: 06/27/17 03:40 06/27/17 03:40 Abnormal lab findings: Abnormal lab results RBC 2.39 M/mcL (4.19-5.50) L 06/27/17 03:40 Hgb 8.2 g/dL (12.9-16.9) L D 06/27/17 03:40 Hct 25.5 % (37.5-50.1) L 06/27/17 03:40 MCV 106.7 fL (83.0-100.0) H 06/27/17 03:40 MCH 34.3 pg (28.0-33.3) H 06/27/17 03:40 RDW 16.3 % (11.5-14.5) H 06/27/17 03:40 Neutrophils # 9.3 K/mcL (1.6-8.9) H 06/27/17 03:40 Lymphocytes # 0.4 K/mcL (0.6-4.6) L 06/27/17 03:40 Sodium 132 mEq/L (136-145) L 06/27/17 03:40 Carbon Dioxide 19 mEq/L (23-29) L 06/27/17 03:40 BUN 74 mg/dL (8-23) H 06/27/17 03:40 Creatinine 1.85 mg/dL (0.70-1.30) H 06/27/17 03:40 Est GFR ( Amer) 42 (> 60) L 06/27/17 03:40 Est GFR (Non-Af Amer) 35 (> 60) L 06/27/17 03:40 BUN/Creatinine Ratio 40 (6-26) H 06/27/17 03:40 Glucose 161 mg/dL (70-105) H 06/27/17 03:40 POC Glucose 157 (58-89) H 06/27/17 07:32 Calcium 7.8 mg/dL (8.6-10.3) L 06/27/17 03:40 Direct Bilirubin 0.3 mg/dL (0.0-0.2) H 06/27/17 03:40 AST 154 Units/L (13-39) H 06/27/17 03:40 ALT 89 Units/L (7-52) H 06/27/17 03:40 Troponin I 2.37 ng/mL (< 0.04) H* 06/27/17 06:48 B-Natriuretic Peptide 351 pg/mL (Less than 100) H 06/26/17 12:03 Serum Total Protein 5.0 g/dL (6.4-8.9) L 06/27/17 03:40 Albumin 2.2 g/dL (3.5-5.7) L 06/27/17 03:40 Albumin/Globulin Ratio 0.8 (1.1-2.2) L 06/27/17 03:40 Urine Clarity Turbid (Clear) A 06/26/17 12:20 Urine Protein 100 mg/dL (Neg-Trace) H 06/26/17 12:20 Urine Blood Large (Negative) H 06/26/17 12:20 Ur Leukocyte Esterase Large (Negative) H 06/26/17 12:20 Urine Microscopic RBC TNTC per hpf (0-3) H 06/26/17 12:20 Urine Microscopic WBC TNTC per hpf (0-3) H 06/26/17 12:20 Ur Squamous Epith Cells Moderate per lpf (None-Few) H 06/26/17 12:20 Ur Transition Epith Cell Moderate per hpf (None-Few) H 06/26/17 12:20 - Clinical Findings Intake & Output: Intake & Output 06/26/17 06/27/17 06/27/17 23:59 07:59 15:59 Intake Total 1210 / 2210 1100 / 1100 Output Total 700 / 700 300 / 300 Balance 510 / 1510 800 / 800 Weight 128.8 kg 128.8 kg Consult Discharge Plan - Plan Referrals: Mingo Wood, DO [Primary Care Provider] -
[2017-06-27] MEDS: Apixaban 2.5 MG TABLET PO SCH ×2 (08:41→19:52)
[2017-06-27] MEDS ORDERED: Amiodarone Premix 360 MG/200 ML BAG IVC ONE (09:31)
--- NOTE | 2017-06-27 10:51 | Cardiology Consult Note ---
Date of Encounter: 06/27/17 Time of Encounter: 10:47 Assessment and Plan (1) Atrial flutter Current Visit: No Status: Chronic Paroxysmal atrial fibrillation currently above 100 bpm, on anticoagulation therefore to help with his valvular abnormalities and urosepsis amiodarone 1 g over 24 hours in hope of chemical cardioversion Qualifiers: Atrial flutter type: typical Qualified Code(s): I48.3 - Typical atrial flutter (2) Elevated troponin I level Current Visit: Yes Status: Acute Likely demand ischemia in the setting of anemia, urosepsis, and overdose. Flat and a dynamic. No ischemic workup planned at this time (3) H/O aortic valve replacement with porcine valve Current Visit: Yes Status: Acute 2007 bioprosthetic aortic valve replacement with severe valvular gradient documented in April 2017. Urosepsis and tachycardia likely confounding factors to his severe valvular aortic stenosis. Chemical cardioversion from atrial fibrillation may help with hemodynamics. Caution in over diuresing as patient would be preload dependent (4) Septic shock Current Visit: Yes Status: Resolved On antibiotics followed by PCCM. Currently off pressors Discussion w patient/family: The assessment and plan as outlined above was discussed with the patient and/or family members who expressed understanding and agreement. All questions were answered. Thank you for involving us in the care of your patient. Please call with any questions. History of Present Illness Consult date: 06/27/17 Consult reason: Afib Chief complaint: weakness History of present illness: Mr. Gonzalez is a 86 year old male with history of hypertension, s/p bioprosthetic AVR, hyperlipidemia, diabetes, atrial fibrillation on anticoagulation presents after overdose on tramadol to the emergency department. He currently is in atrial fibrillation with rapid ventricular responsible hundred bpm in setting of urosepsis. His troponin's are elevated above 2.0 a dynamic and flat. This may represent demand ischemia due to overdose and urosepsis. He denies any chest pain, shortness of breath, orthopnea, PND, presyncope or syncope. Last echocardiogram April 2017 revealed severe aortic valve prosthesis stenosis with a mean gradient of 34 mmHg. His blood pressure currently is borderline and I do feel that may improve if he converts back to sinus rhythm. His baseline heart rate is between 55 and 60 beats per minute. Since he has continued on his anticoagulation the patient may benefit from chemical cardioversion with amiodarone 1 g over 24 hours. Past Med Surg Social Fam HX - Past Medical History Medical history: cancer, diabetes, GERD, hyperlipidemia, hypertension, renal disease, thyroid disease, valvular heart disease, other Psychiatric history: no psych history - Past Surgical History Surgical History: carotid endarterectomy, knee replacement, orthopedic, other, prostatectomy, vascular surgery, other - Social History Smoking Status: Never smoker Smokeless Tobacco Status: No Alcohol use: none Drug use: none - Family History Brother Living Status: Hx Family Cardiac Disorders: Yes Medications and Allergies B Complex with Vitamin C [Vitamin B-Complex & C] 1 each PO DAILY 12/18/15 [ History] Cranberry Fruit Extract [Cranberry] 500 mg PO DAILY 12/18/15 [History] Cyanocobalamin (Vitamin B-12) [Vitamin B-12] 5,000 mcg SL DAILY 12/18/15 [ History] Gabapentin [Neurontin] 300 mg PO HS 12/18/15 [History] Garlic 1,000 mg PO DAILY 12/18/15 [History] Ginkgo Biloba 60 mg PO DAILY 12/18/15 [History] Gluc Lemos/MSM/Magnesium/Vit C [Glucosamine Complex-MSM Cap] 2 each PO DAILY [History] Insulin Glargine,Hum.rec.anlog [Lantus Solostar] 40 unit SQ HS 12/18/15 [History ] Insulin LISPRO [Humalog] 35 unit SQ TID 12/18/15 [History] Metoprolol XL (24 HR) Succ [Toprol Xl] 37.5 mg PO BID 12/18/15 [History] Nortriptyline [Pamelor] 25 mg PO HS 12/18/15 [History] Tumeric-Curcumin Complex 1 tab PO DAILY 12/18/15 [History] Vit C/E/Zn/Coppr/Lutein/Zeaxan [Preservision Areds 2 Softgel] 2 cap PO DAILY 09/26 [History] Atorvastatin Calcium [Lipitor] 80 mg PO HS 01/15/16 [History] Multivit-Min/Iron Fum/Folic AC [Opxjx-Bpavdfr-Kzwbturw Tablet] 1 each PO DAILY 01/15/16 [History] Enalapril Maleate [Vasotec] 10 mg PO DAILY 04/18/16 [History] Fenofibrate [Lofibra] 160 mg PO DAILY 04/18/16 [History] Ranitidine HCl [Heartburn Relief] 150 mg PO DAILY 04/18/16 [History] Levothyroxine [Levothyroxine Sodium] 125 mcg PO DAILY@0630 06/27/16 [History] Lutein/Zeaxanthin [Lutein-Zeaxanthin 25-5 mg Sfgl] 1 each PO DAILY 06/27/16 [ History] Apixaban [Eliquis] 2.5 mg PO BID 12/26/16 [History] Bumetanide [Bumex] 1 mg PO BID 12/26/16 [History] Acetaminophen [Tylenol Arthritis] 650 mg PO BID 05/12/17 [History] Folic Acid 1 mg PO DAILY 05/12/17 [History] Finasteride [Proscar] 5 mg PO DAILY #7 tablet 06/18/17 [Rx] Tamsulosin [Flomax] 0.4 mg PO DAILY #7 cap.er.24h 06/18/17 [Rx] Cephalexin [Keflex] 500 mg PO QID 06/26/17 [History] Iron 65 mg PO DAILY 06/26/17 [History] Tramadol HCl [Ultram] 50 mg PO TID PRN 06/26/17 [History] 3 Allergy/AdvReac Type Severity Reaction Status Date / Time No Known Allergies Allergy Verified 06/26/17 13:07 All Systems Review: The remainder of the systems were reviewed and are negative Physical Examination Vital Signs, Last 4 Hours Temp Pulse Resp BP Pulse Ox 06/27/17 10:00 87 16 95/48 100 06/27/17 09:00 98 16 94/57 98 06/27/17 08:00 99.1 F 94 16 89/45 100 06/27/17 07:00 94 16 98/38 98 General: Conversant, No Apparent Distress HEENT: Atraumatic, Normocephaly, Mucus Membranes Moist Neck: No JVD, Normal carotid pulses Cardiac: Reg Rate and Rhythm, Normal S1 and S2, No Murmur (3/6 systolic ejection murmur) Lungs: Normal Breath Sounds, No Wheeze, Rales, Rhonchi Neuro: Alert and responsive, No focal deficits noted Abdomen: Soft, Non-Tender Skin: No rashes noted on visualized skin Musculoskeletal: No Chest Wall Tenderness Extremities: No Clubbing, No Cyanosis, No Edema, Normal Pulses Results 06/27/17 03:40 06/27/17 03:40 Lab Results 06/26/17 06/26/17 06/27/17 18:03 20:55 03:40 WBC 10.3 Hgb 8.2 L D Hct 25.5 L Plt Count 252 Sodium Potassium Chloride Carbon Dioxide BUN Creatinine Glucose Calcium Total Bilirubin AST ALT Alkaline Phosphatase Troponin I 2.74 H* 2.70 H* 06/27/17 06/27/17 03:40 06:48 WBC Hgb Hct Plt Count Sodium 132 L Potassium 4.4 Chloride 106 Carbon Dioxide 19 L BUN 74 H Creatinine 1.85 H Glucose 161 H Calcium 7.8 L Total Bilirubin 0.7 AST 154 H ALT 89 H Alkaline Phosphatase 60 Troponin I 2.37 H* Consult Discharge Plan - Plan Referrals: Mingo Wood DO [Primary Care Provider] -
[2017-06-27] MEDS ORDERED: Perflutren Lipid Microsphere 1.3 ML in 0.9 % Sodium Chloride 8.7 ML IVP ONE (12:21)
[2017-06-27] MEDS: Amiodarone Premix 360 MG/200 ML BAG IVC SCH (15:29)
[2017-06-27] MEDS ORDERED: 0.9 % Sodium Chloride 500 ML IVC ONE ×2 (15:47→19:28)
[2017-06-27] MEDS: Norepinephrine 4 MG in D5% in Water 250 ML IVC SCH (21:00)
[2017-06-28] MEDS: Amiodarone Premix 360 MG/200 ML BAG IVC SCH (02:11)
[2017-06-28] MEDS: Piperacillin/Tazobactam 3.375 GM in 0.9 % Sodium Chloride Mini Bag 100 ML IVPB SCH ×3 (06:00→20:23)
[2017-06-28] MEDS: 0.9 % Sodium Chloride 1,000 ML IVC SCH ×3 (06:00→19:35)
[2017-06-28] MEDS ORDERED: 0.9 % Sodium Chloride 500 ML IVC ONE (06:34)
[2017-06-28] MEDS: Insulin LISPRO 300 UNITS/3 ML VIAL SQ SCH ×4 (08:32→20:23)
[2017-06-28] MEDS: Apixaban 2.5 MG TABLET PO SCH ×2 (08:33→20:22)
--- NOTE | 2017-06-28 09:11 | Pulmonology Progress Note ---
Date of Encounter: 06/28/17 Time of Encounter: 07:45 Assessment and Plan (1) Septic shock Current Visit: Yes Status: Acute Patient is requiring low dose of Levophed and he responded to the fluid and will continue medical management with fluid resuscitation as well as broad- spectrum antibiotics with Zosyn and stop vancomycin since cultures has been negative so far. I still suspect he is volume depleted and I will continue fluid resuscitation and if needed a low dose of Levophed. Overall prognosis is poor (2) Elevated troponin I level Current Visit: Yes Status: Acute This is could be multifactorial from septic shock and since he has underlying cardiovascular disease, we will check echocardiogram and also cardiology consultation consideration. I believe this would be recommended for management. 06/28 cardiology has seen patient and discussed the case with Dr. Alamo and agree with the treatment plan. Subjective Principal diagnosis: Septic shock Interval history: Patient denies any complain however he remains on very low-dose of Levophed and his blood pressure generally responding to fluid boluses Objective PUL Vital signs: Last Vital Signs Temp 98.9 F 06/28/17 08:22 Pulse 94 06/28/17 08:25 Resp 20 06/28/17 08:25 BP 110/48 06/28/17 08:25 Pulse Ox 98 06/28/17 08:25 General appearance: lethargic Eyes: nonicteric ENT: oropharynx dry Neck: supple Effort: normal Auscultation: bilateral: diminished breath sounds Percussion: bilateral: not dull Cardiovascular: irregular rhythm, murmur noted Gastrointestinal: normoactive bowel sounds, non-distended Extremities: edema normal mental status, non-focal exam depressed Results - Laboratory Findings CBC and BMP: 06/27/17 03:40 06/27/17 03:40 Abnormal lab findings: Abnormal lab results RBC 2.39 M/mcL (4.19-5.50) L 06/27/17 03:40 Hgb 8.2 g/dL (12.9-16.9) L D 06/27/17 03:40 Hct 25.5 % (37.5-50.1) L 06/27/17 03:40 MCV 106.7 fL (83.0-100.0) H 06/27/17 03:40 MCH 34.3 pg (28.0-33.3) H 06/27/17 03:40 RDW 16.3 % (11.5-14.5) H 06/27/17 03:40 Neutrophils # 9.3 K/mcL (1.6-8.9) H 06/27/17 03:40 Lymphocytes # 0.4 K/mcL (0.6-4.6) L 06/27/17 03:40 Sodium 132 mEq/L (136-145) L 06/27/17 03:40 Carbon Dioxide 19 mEq/L (23-29) L 06/27/17 03:40 BUN 74 mg/dL (8-23) H 06/27/17 03:40 Creatinine 1.85 mg/dL (0.70-1.30) H 06/27/17 03:40 Est GFR ( Amer) 42 (> 60) L 06/27/17 03:40 Est GFR (Non-Af Amer) 35 (> 60) L 06/27/17 03:40 BUN/Creatinine Ratio 40 (6-26) H 06/27/17 03:40 Glucose 161 mg/dL (70-105) H 06/27/17 03:40 POC Glucose 208 (58-89) H 06/28/17 07:40 Calcium 7.8 mg/dL (8.6-10.3) L 06/27/17 03:40 Direct Bilirubin 0.3 mg/dL (0.0-0.2) H 06/27/17 03:40 AST 154 Units/L (13-39) H 06/27/17 03:40 ALT 89 Units/L (7-52) H 06/27/17 03:40 Troponin I 2.37 ng/mL (< 0.04) H* 06/27/17 06:48 B-Natriuretic Peptide 351 pg/mL (Less than 100) H 06/26/17 12:03 Serum Total Protein 5.0 g/dL (6.4-8.9) L 06/27/17 03:40 Albumin 2.2 g/dL (3.5-5.7) L 06/27/17 03:40 Albumin/Globulin Ratio 0.8 (1.1-2.2) L 06/27/17 03:40 Urine Clarity Turbid (Clear) A 06/26/17 12:20 Urine Protein 100 mg/dL (Neg-Trace) H 06/26/17 12:20 Urine Blood Large (Negative) H 06/26/17 12:20 Ur Leukocyte Esterase Large (Negative) H 06/26/17 12:20 Urine Microscopic RBC TNTC per hpf (0-3) H 06/26/17 12:20 Urine Microscopic WBC TNTC per hpf (0-3) H 06/26/17 12:20 Ur Squamous Epith Cells Moderate per lpf (None-Few) H 06/26/17 12:20 Ur Transition Epith Cell Moderate per hpf (None-Few) H 06/26/17 12:20 - Clinical Findings Intake & Output: Intake & Output 06/27/17 06/28/17 06/28/17 23:59 07:59 15:59 Intake Total 3411 / 3411 1922.4 / 1922.4 Output Total 100 / 100 500 / 500 400 / 400 Balance 3311 / 3311 1422.4 / 1422.4 -400 / -400 Weight 129.6 kg Consult Discharge Plan - Plan Referrals: Mingo Wood DO [Primary Care Provider] -
[2017-06-28] MEDS ORDERED: Aminoglycoside Consult 1 EACH MC ONE (09:19)
--- NOTE | 2017-06-28 10:30 | Cardiology Progress Note ---
Date of Encounter: 06/28/17 Time of Encounter: 10:30 Assessment and Plan (1) Septic shock Current Visit: Yes Status: Acute Per Cardiology: On antibiotics followed by PCCM. Currently off pressors (2) Atrial flutter Current Visit: No Status: Chronic Per Cardiology: Remains A. fib, however now rate controlled in the 80s on amiodarone drip. Discussed and reviewed with Dr. Arredondo, we will start amiodarone 200 mg by mouth twice a day for one week and then decrease to 200 mg by mouth daily. Discussed with primary service. Qualifiers: Atrial flutter type: typical Qualified Code(s): I48.3 - Typical atrial flutter (3) Chronic anemia Current Visit: Yes Status: Chronic Per Cardiology: Currently anticoagulated with Eliquis 2.5mg PO BID. Continue to monitor H&H closely. (4) H/O aortic valve replacement with porcine valve Current Visit: Yes Status: Acute Per Cardiology: 2007 bioprosthetic aortic valve replacement with severe valvular gradient documented in April 2017-- 34mmHg. Patient is DNR/CCA, DNI. Patient and family desires for patient to go home and agreeable to palliative care evaluation for potential for hospice. Urosepsis and tachycardia likely confounding factors to his severe valvular aortic stenosis. Caution in over diuresing as patient would be preload dependent. Discussed and reviewed with Dr. Arredondo, cardiology will sign off, reconsult as needed, follow-up with primary cardiology team. All questions answered. (5) Bladder cancer Current Visit: Yes Status: Chronic Per Cardiology: History of bladder cancer diagnosed in 2016 with relapse. Previously underwent 36 radiation treatments. Most recent treatment a few weeks ago. Has Knapp catheter in place draining clear yellow urine. Qualifiers: Bladder location: unspecified site Qualified Code(s): C67.9 - Malignant neoplasm of bladder, unspecified (6) CKD (chronic kidney disease) Current Visit: Yes Status: Chronic Per Cardiology: History of CK D stage IIIB to IV. Kidney function currently around baseline. Qualifiers: Chronic kidney disease stage: stage 3 (moderate) Qualified Code(s): N18.3 - Chronic kidney disease, stage 3 (moderate) Discussion w patient/family: The assessment and plan as outlined above was discussed with the patient and/or family members who expressed understanding and agreement. All questions were answered. Thank you for involving us in the care of your patient. Please call with any questions. Subjective Principal diagnosis: Septic shock Interval history: Patient seen with family at bedside. Celebrating his 87th birthday today. He denies any chest pain. Reports shortness of breath has improved. Denies any new concerns today. Objective Vital Signs, Last 4 Hours Temp Pulse Resp BP Pulse Ox 06/28/17 09:00 91 18 110/56 98 06/28/17 08:22 98.9 F 06/28/17 08:00 94 20 110/48 98 06/28/17 07:00 105 20 107/46 93 General: Conversant Cardiac: No Murmur (Grade IV/ murmur), Other (Irregularly irregular) Lungs: Other (Diminished anteriorly) Neuro: Alert and responsive, No focal deficits noted Skin: No rashes noted on visualized skin Extremities: Other (+1 nonpitting bilteral LE) Results 06/27/17 03:40 06/27/17 03:40 Laboratory Tests 06/26/17 06/26/17 06/26/17 12:03 12:03 12:03 WBC 15.2 H Hgb 10.0 L Hct 31.1 L Plt Count Creatinine Est GFR (Non-Af Amer) AST ALT Troponin I 1.50 H* B-Natriuretic Peptide 351 H 06/26/17 06/26/17 06/27/17 18:03 20:55 03:40 WBC 10.3 Hgb 8.2 L D Hct 25.5 L Plt Count 252 Creatinine Est GFR (Non-Af Amer) AST ALT Troponin I 2.74 H* 2.70 H* B-Natriuretic Peptide 06/27/17 06/27/17 03:40 06:48 WBC Hgb Hct Plt Count Creatinine 1.85 H Est GFR (Non-Af Amer) 35 L AST 154 H ALT 89 H Troponin I 2.37 H* B-Natriuretic Peptide ITS Impressions Chest X-Ray 06/26/17 11:28 IMPRESSION: No acute process. D/ / Marcin West MD / Marcin West MD Interpreting Provider: Marcin West MD Abdomen/Pelvis CT 06/26/17 15:55 IMPRESSION: 1. There continues to be soft tissue within the retroperitoneum, which is stable mildly increased when compared to the previous exam. Presumably this represents metastatic disease although retroperitoneal fibrosis could appear similarly. 2. There is possible urothelial thickening within the ureters, but hydronephrosis and hydroureter are not visualized. 3. Knapp catheter is present within urinary bladder. There is evidence of urinary bladder mural thickening, with pericystic fat stranding, suggesting cystitis. 4. Very small bilateral pleural effusions with adjacent airspace disease, atelectasis versus pneumonia versus edema. D/ / Daniel Akers MD / Daniel Akers MD Interpreting Provider: Daniel Akers MD Echocardiogram 06/27/17 19:08 Impressions: LVEF 60%. Indeterminate diastolic function. Severe prosthetic aortic valve stenosis by doppler similar to past ECHO's Moderately dilated left atrium. No pulmonary hypertension. Left Ventricular Wall Motion: Rest Echo Findings All wall segments showed normal motion. Findings: Study Quality * Technically sub-optimal due to clinical status. ECG Findings * Atrial fibrillation. Right Ventricle * Normal right ventricular structure and function. Right Atrium * Normal right atrial size. Interatrial Septum * Interatrial septum not well evaluated. Aortic Valve * Aortic valve not well visualized. * Bioprosthetic aortic valve replacement with abnormal function. * Severe prosthetic aortic valve stenosis by doppler similar to past ECHO's Mitral Valve * Mitral valve not well visualized. Tricuspid Valve * Mild tricuspid regurgitation. Pulmonic Valve * Pulmonic valve not well visualized. Aorta * Normally sized aortic root. Pericardium * The pericardium appears normal. Left Atrium * Moderately dilated left atrium. IVC * The IVC is dilated. * < 50% respiratory change. Left Ventricle * Indeterminate diastolic function. * LVEF 60%. Intake & Output 06/25/17 06/26/17 06/27/17 06/28/17 23:59 23:59 23:59 23:59 Intake Total 4710 / 4710 7280 / 7280 1922.4 / 1922.4 Output Total 700 / 700 500 / 500 900 / 900 Balance 4010 / 4010 6780 / 6780 1022.4 / 1022.4 Weight 128.8 kg 128.8 kg 129.6 kg Active Medications Apixaban (Eliquis) 2.5 mg PO BID NETO Stop: 12/26/17 21:01 Last Admin: 06/28/17 08:33 Dose: 2.5 mg Dextrose/Water (Dextrose 50% (Syg)) 25 ml IVP AD PRN PRN Reason: Hypoglycemia Stop: 12/26/17 21:06 Glucagon (Glucagen) 1 mg IM ONCE PRN PRN Reason: Hypoglycemia Stop: 12/26/17 21:06 Glucose (Gluctose) 15 gm PO ONCE PRN PRN Reason: Hypoglycemia Stop: 12/26/17 21:06 Glucose (Gluctose) 30 gm PO ONCE PRN PRN Reason: Hypoglycemia Stop: 12/26/17 21:06 Norepinephrine Bitartrate 4 mg (/ Dextrose) 254 mls @ 19.05 mls/hr IVC CONT NETO ; 5 MCG/MIN PRN Reason: Protocol Stop: 12/26/17 14:31 Last Titration: 06/28/17 06:28 Dose: 0.5 mcg/min, 1.9 mls/hr Sodium Chloride (0.9 % Sodium Chloride) 1,000 mls @ 150 mls/hr IVC .Q6H40M NETO Stop: 12/26/17 17:01 Last Infusion: 06/28/17 06:55 Dose: 999 mls/hr Calcium Gluconate 1,000 mg/ (Sodium Chloride) 110 mls @ 220 mls/hr IVPB Q6HR PRN PRN Reason: Hypocalcemia Stop: 12/26/17 16:49 Last Infusion: 06/26/17 19:12 Dose: Infused Magnesium Sulfate (Magnesium Sulfate Premix 2gm/50ml) 2 gm in 50 mls @ 50 mls/ hr IVPB Q6H PRN PRN Reason: Hypomagnesemia Stop: 12/26/17 16:49 Potassium Chloride (Potassium Chloride 10 Meq/100ml) 10 meq in 100 mls @ 100 mls/hr IVPB Q1H PRN PRN Reason: Potassium less than 4 Stop: 12/26/17 16:49 Potassium Phosphate 44 meq/ (Sodium Chloride) 260 mls @ 40 mls/hr IVPB Q10H PRN PRN Reason: Phosphate less than 3 Stop: 12/26/17 16:49 Piperacillin Sod/Tazobactam (Sod 3.375 gm/ Sodium Chloride) 100 mls @ 25 mls/ hr IVPB Q8H NETO Stop: 12/26/17 22:01 Last Admin: 06/28/17 06:00 Dose: 25 mls/hr Dextrose (Dextrose 5%) 1,000 mls @ 100 mls/hr IVC .Q10H PRN PRN Reason: HYPOGLYCEMIA Stop: 12/26/17 21:06 Amiodarone HCl/Dextrose (Amiodarone Drip Premix 360mg/200ml) 360 mg in 200 mls @ 16.667 mls/hr IVC CONT NETO PRN Reason: 0.5 MG/MIN Stop: 12/27/17 09:46 Last Admin: 06/28/17 02:11 Dose: 0.5 mg/min, 16.667 mls/hr Insulin Human Lispro (Humalog) 0 units SQ TIDAC NETO PRN Reason: Protocol Stop: 12/27/17 07:31 Last Admin: 06/28/17 08:32 Dose: 4 units Insulin Human Lispro (Humalog) 0 units SQ HS NETO PRN Reason: Protocol Stop: 12/26/17 21:16 Last Admin: 06/27/17 20:16 Dose: 3 units Naloxone HCl (Narcan) 0.4 mg IVP Q2MIN PRN PRN Reason: SEE COMMENTS Stop: 12/26/17 16:47 Potassium Chloride (Potassium Chloride) 40 meq PO DAILY PRN PRN Reason: Hypokalemia Stop: 12/26/17 16:49 - Imaging and Cardiology Echo: report reviewed - EKG Interpretation EKG results cardiology: other (Telemetry reviewed and remains A. fib in the 80s , average heart rate past 12 hours 84, few epsiodes of NSVT vs afib RVR with aberrancy noted, longest 22 beats) Consult Discharge Plan - Plan Referrals: Mingo Wood, DO [Primary Care Provider] -
[2017-06-28] MEDS: *HR* Amiodarone 200 MG TABLET PO SCH ×2 (12:04→20:22)
[2017-06-28] MEDS: Norepinephrine 4 MG in D5% in Water 250 ML IVC SCH (14:33)
[2017-06-29] MEDS: 0.9 % Sodium Chloride 1,000 ML IVC SCH ×29 (02:02→14:43)
[2017-06-29 03:38] LABS: Basophils % 0.1 %; Eosinophils # 0.2 K/mcL (0.0-0.6); Eosinophils % 2.1 %; Hematocrit 25.9 % (37.5-50.1); Hemoglobin 8.3 g/dL (12.9-16.9); Immature Granulocytes % 0.6 % (0-4); Immature Platelets 1.8 % (1.1-6.1); Lymphocytes # 1.1 K/mcL (0.6-4.6); Lymphocytes % 12.2 %; Mean Corpuscular Hemoglobin 34.9 pg (28.0-33.3); Mean Corpuscular Volume 108.8 fL (83.0-100.0); Mean Platelet Volume 9.6 fL (9.4-12.4); Monocytes # 0.4 K/mcL (0.0-1.3); Monocytes % 5.1 %; Neutrophils # 6.9 K/mcL (1.6-8.9); Platelet Count 239 K/mcL (140-400); Red Blood Count 2.38 M/mcL (4.19-5.50); Red Cell Distribution Width 16.6 % (11.5-14.5); Segmented Neutrophils % 79.9 %
[2017-06-29] MEDS ORDERED: Ipratropium/Albuterol Neb 3 ML IH PRN ×2 (03:43→19:41)
[2017-06-29 03:56] LABS: Calcium 7.7 mg/dL (8.6-10.3); Potassium 4.1 mEq/L (3.5-5.1)
[2017-06-29] MEDS: Ipratropium/Albuterol Neb 3 ML IH SCH ×4 (03:56→22:24)
[2017-06-29] MEDS: Piperacillin/Tazobactam 3.375 GM in 0.9 % Sodium Chloride Mini Bag 100 ML IVPB SCH ×3 (05:54→21:13)
--- NOTE | 2017-06-29 07:07 | Pulmonology Progress Note ---
Date of Encounter: 06/29/17 Time of Encounter: 07:06 Subjective Principal diagnosis: Septic shock Objective PUL Vital signs: Last Vital Signs Temp 98 F 06/29/17 04:59 Pulse 80 06/29/17 06:00 Resp 20 06/29/17 06:00 BP 111/56 06/29/17 06:00 Pulse Ox 99 06/29/17 06:00 Results - Laboratory Findings CBC and BMP: 06/29/17 03:23 06/29/17 03:23 Abnormal lab findings: Abnormal lab results RBC 2.38 M/mcL (4.19-5.50) L 06/29/17 03:23 Hgb 8.3 g/dL (12.9-16.9) L 06/29/17 03:23 Hct 25.9 % (37.5-50.1) L 06/29/17 03:23 MCV 108.8 fL (83.0-100.0) H 06/29/17 03:23 MCH 34.9 pg (28.0-33.3) H 06/29/17 03:23 RDW 16.6 % (11.5-14.5) H 06/29/17 03:23 Chloride 112 mEq/L (98-107) H 06/29/17 03:23 Carbon Dioxide 18 mEq/L (23-29) L 06/29/17 03:23 BUN 58 mg/dL (8-23) H 06/29/17 03:23 Creatinine 1.42 mg/dL (0.70-1.30) H 06/29/17 03:23 Est GFR ( Amer) 57 (> 60) L 06/29/17 03:23 Est GFR (Non-Af Amer) 47 (> 60) L 06/29/17 03:23 BUN/Creatinine Ratio 41 (6-26) H 06/29/17 03:23 Glucose 206 mg/dL (70-105) H 06/29/17 03:23 POC Glucose 242 (58-89) H 06/28/17 20:23 Calculated Osmolality 308 (280-300) H 06/29/17 03:23 Calcium 7.7 mg/dL (8.6-10.3) L 06/29/17 03:23 Direct Bilirubin 0.3 mg/dL (0.0-0.2) H 06/27/17 03:40 AST 154 Units/L (13-39) H 06/27/17 03:40 ALT 89 Units/L (7-52) H 06/27/17 03:40 Troponin I 2.37 ng/mL (< 0.04) H* 06/27/17 06:48 B-Natriuretic Peptide 351 pg/mL (Less than 100) H 06/26/17 12:03 Serum Total Protein 5.0 g/dL (6.4-8.9) L 06/27/17 03:40 Albumin 2.2 g/dL (3.5-5.7) L 06/27/17 03:40 Albumin/Globulin Ratio 0.8 (1.1-2.2) L 06/27/17 03:40 Urine Clarity Turbid (Clear) A 06/26/17 12:20 Urine Protein 100 mg/dL (Neg-Trace) H 06/26/17 12:20 Urine Blood Large (Negative) H 06/26/17 12:20 Ur Leukocyte Esterase Large (Negative) H 06/26/17 12:20 Urine Microscopic RBC TNTC per hpf (0-3) H 06/26/17 12:20 Urine Microscopic WBC TNTC per hpf (0-3) H 06/26/17 12:20 Ur Squamous Epith Cells Moderate per lpf (None-Few) H 06/26/17 12:20 Ur Transition Epith Cell Moderate per hpf (None-Few) H 06/26/17 12:20 - Clinical Findings Intake & Output: Intake & Output 06/28/17 06/28/17 06/29/17 15:59 23:59 07:59 Intake Total 100 / 100 1127.7 / 1127.7 1100 / 1100 Output Total 1100 / 1100 300 / 300 750 / 750 Balance -1000 / -1000 827.7 / 827.7 350 / 350 Weight 134.1 kg Consult Discharge Plan - Plan Referrals: Mingo Wood DO [Primary Care Provider] -
[2017-06-29] MEDS: *HR* Amiodarone 200 MG TABLET PO SCH ×2 (08:57→19:53)
[2017-06-29] MEDS: Apixaban 2.5 MG TABLET PO SCH ×2 (08:57→19:53)
[2017-06-29] MEDS: Insulin LISPRO 300 UNITS/3 ML VIAL SQ SCH ×3 (08:57→19:56)
--- NOTE | 2017-06-29 09:19 | Pulmonology Progress Note ---
Date of Encounter: 06/29/17 Time of Encounter: 09:16 Assessment and Plan (1) Septic shock due to undetermined organism Current Visit: Yes Status: Acute White count trending down and weaned off vasopressors we will continue to monitor microbiological data and de-escalate based upon results (2) Atrial flutter Current Visit: No Status: Chronic Rate control today he has been evaluated by cardiology being treated with oral amiodarone Cont NOAC for LTA Stable H/H Qualifiers: Atrial flutter type: typical Qualified Code(s): I48.3 - Typical atrial flutter (3) Elevated troponin I level Current Visit: Yes Status: Acute This is likely due to demand ischemia with a history severe stenotic lesion of the aorta (4) H/O aortic valve replacement with porcine valve Current Visit: Yes Status: Acute Now with stenotic gradient at high risk for hemodynamic insufficiency related to preload dependency [facility] (5) Goals of care, counseling/discussion Current Visit: Yes Status: Acute DNAR/DNI palliative care following (6) Bladder cancer Current Visit: Yes Status: Chronic Being followed as an outpatient by oncology and radiation oncology Qualifiers: Bladder location: unspecified site Qualified Code(s): C67.9 - Malignant neoplasm of bladder, unspecified Subjective Principal diagnosis: Septic shock Interval history: Mr Gonzalez has done very well overnight. He was able to be weaned off vasopressor yesterday evening and has been on since. He is comfortable today eating breakfast denies complaints. Objective PUL Vital signs: Last Vital Signs Temp 97.8 F 06/29/17 08:00 Pulse 98 06/29/17 09:00 Resp 22 06/29/17 09:00 BP 132/81 06/29/17 09:00 Pulse Ox 99 06/29/17 09:00 General appearance: no acute distress Auscultation: bilateral: rales Cardiovascular: irregular rhythm, murmur noted (Systolic ejection murmur grade 4 /6), other Integumentary: normal Extremities: edema (2+ lower extremity edema) normal mental status, non-focal exam Results - Laboratory Findings CBC and BMP: 06/29/17 03:23 06/29/17 03:23 Abnormal lab findings: Abnormal lab results RBC 2.38 M/mcL (4.19-5.50) L 06/29/17 03:23 Hgb 8.3 g/dL (12.9-16.9) L 06/29/17 03:23 Hct 25.9 % (37.5-50.1) L 06/29/17 03:23 MCV 108.8 fL (83.0-100.0) H 06/29/17 03:23 MCH 34.9 pg (28.0-33.3) H 06/29/17 03:23 RDW 16.6 % (11.5-14.5) H 06/29/17 03:23 Chloride 112 mEq/L (98-107) H 06/29/17 03:23 Carbon Dioxide 18 mEq/L (23-29) L 06/29/17 03:23 BUN 58 mg/dL (8-23) H 06/29/17 03:23 Creatinine 1.42 mg/dL (0.70-1.30) H 06/29/17 03:23 Est GFR ( Amer) 57 (> 60) L 06/29/17 03:23 Est GFR (Non-Af Amer) 47 (> 60) L 06/29/17 03:23 BUN/Creatinine Ratio 41 (6-26) H 06/29/17 03:23 Glucose 206 mg/dL (70-105) H 06/29/17 03:23 POC Glucose 219 (58-89) H 06/29/17 07:46 Calculated Osmolality 308 (280-300) H 06/29/17 03:23 Calcium 7.7 mg/dL (8.6-10.3) L 06/29/17 03:23 Direct Bilirubin 0.3 mg/dL (0.0-0.2) H 06/27/17 03:40 AST 154 Units/L (13-39) H 06/27/17 03:40 ALT 89 Units/L (7-52) H 06/27/17 03:40 Troponin I 2.37 ng/mL (< 0.04) H* 06/27/17 06:48 B-Natriuretic Peptide 351 pg/mL (Less than 100) H 06/26/17 12:03 Serum Total Protein 5.0 g/dL (6.4-8.9) L 06/27/17 03:40 Albumin 2.2 g/dL (3.5-5.7) L 06/27/17 03:40 Albumin/Globulin Ratio 0.8 (1.1-2.2) L 06/27/17 03:40 Urine Clarity Turbid (Clear) A 06/26/17 12:20 Urine Protein 100 mg/dL (Neg-Trace) H 06/26/17 12:20 Urine Blood Large (Negative) H 06/26/17 12:20 Ur Leukocyte Esterase Large (Negative) H 06/26/17 12:20 Urine Microscopic RBC TNTC per hpf (0-3) H 06/26/17 12:20 Urine Microscopic WBC TNTC per hpf (0-3) H 06/26/17 12:20 Ur Squamous Epith Cells Moderate per lpf (None-Few) H 06/26/17 12:20 Ur Transition Epith Cell Moderate per hpf (None-Few) H 06/26/17 12:20 - Clinical Findings Intake & Output: Intake & Output 06/28/17 06/29/17 06/29/17 23:59 07:59 15:59 Intake Total 1127.7 / 1127.7 1100 / 1100 950 / 950 Output Total 300 / 300 750 / 750 300 / 300 Balance 827.7 / 827.7 350 / 350 650 / 650 Weight 134.1 kg Consult Discharge Plan - Plan Referrals: Mingo Wood DO [Primary Care Provider] -
[2017-06-29] MEDS: Norepinephrine 4 MG in D5% in Water 250 ML IVC SCH (09:36)
[2017-06-29] MEDS ORDERED: Insulin LISPRO 300 UNITS/3 ML VIAL SQ SCH ×2 (12:18)
[2017-06-29] MEDS ORDERED: Nystatin Cream 15 GM TUBE TP SCH (15:00)
--- NOTE | 2017-06-29 16:58 | Event Note ---
Date of Encounter: 06/29/17 Time of Encounter: 14:[address] Feliciano the admitting hospitalist about transfer to the med/ surg floor. Dr. Feliciano agreed to accept. Patient will need transfered to a unit with tele.
[2017-06-29] MEDS ORDERED: Naloxone 0.4 MG/ML INJ IVP PRN (19:41)
[2017-06-29] MEDS ORDERED: 0.9 % Sodium Chloride 1,000 ML IVC SCH (19:41)
[2017-06-29] MEDS ORDERED: D5% in Water 1,000 ML IVC PRN (19:41)
[2017-06-29] MEDS ORDERED: Dextrose Gel 15 GM/37.5 ML TUBE PO PRN ×2 (19:41)
[2017-06-29] MEDS ORDERED: *HR* Dextrose 50 % in Water (Syg) 50 ML SYRINGE IVP PRN (19:41)
[2017-06-29] MEDS: Nystatin Cream 15 GM TUBE TP SCH (19:56)
[2017-06-29] MEDS ORDERED: Miconazole w/zinc oxide&karaya 92 APPL/92 GM TUBE TP SCH (21:00)
[2017-06-29] MEDS: Miconazole w/zinc oxide&karaya 92 APPL/92 GM TUBE TP SCH (21:24)
[2017-06-30] MEDS: Ipratropium/Albuterol Neb 3 ML IH SCH ×4 (03:52→21:17)
[2017-06-30] MEDS: Piperacillin/Tazobactam 3.375 GM in 0.9 % Sodium Chloride Mini Bag 100 ML IVPB SCH (05:21)
[2017-06-30 05:40] LABS: Basophils % 0.3 %; Eosinophils # 0.2 K/mcL (0.0-0.6); Eosinophils % 1.5 %; Hematocrit 27.1 % (37.5-50.1); Hemoglobin 8.6 g/dL (12.9-16.9); Immature Granulocytes % 0.7 % (0-4); Lymphocytes # 0.6 K/mcL (0.6-4.6); Lymphocytes % 5.5 %; Mean Corpuscular HGB Conc 31.7 g/dL (31.6-35.5); Mean Corpuscular Hemoglobin 34.4 pg (28.0-33.3); Mean Corpuscular Volume 108.4 fL (83.0-100.0); Mean Platelet Volume 10.2 fL (9.4-12.4); Monocytes # 0.5 K/mcL (0.0-1.3); Monocytes % 5.1 %; Neutrophils # 8.8 K/mcL (1.6-8.9); Platelet Count 234 K/mcL (140-400); Red Cell Distribution Width 16.3 % (11.5-14.5); Segmented Neutrophils % 86.9 %
[2017-06-30 06:03] LABS: BUN/Creatinine Ratio 46 (6-26); Blood Urea Nitrogen 50 mg/dL (8-23); Calcium 8.1 mg/dL (8.6-10.3); Carbon Dioxide 18 mEq/L (23-29); Chloride 114 mEq/L (98-107); Glucose 221 mg/dL (70-105); Osmolality,Calculated 310 (280-300); Potassium 4.3 mEq/L (3.5-5.1); Sodium 140 mEq/L (136-145); eGFR For African Americans > 60 (> 60); eGFR For Non-African Americans > 60 (> 60)
[2017-06-30] MEDS: *HR* Amiodarone 200 MG TABLET PO SCH ×2 (08:17→21:04)
[2017-06-30] MEDS: Apixaban 2.5 MG TABLET PO SCH ×2 (08:17→21:04)
[2017-06-30] MEDS: Insulin LISPRO 300 UNITS/3 ML VIAL SQ SCH ×4 (08:18→21:04)
[2017-06-30] MEDS: Miconazole w/zinc oxide&karaya 92 APPL/92 GM TUBE TP SCH (08:18)
[2017-06-30] MEDS: Nystatin Cream 15 GM TUBE TP SCH ×3 (08:19→21:04)
--- NOTE | 2017-06-30 11:34 | Internal Med Progress Note ---
Date of Encounter: 06/30/17 Time of Encounter: 11:34 - Subjective Interval history: Interval changes: Pressors d/c'd prior to transfer to Hospitalist service Antibiotics d/c prior to hospitalist service Ra menchaca has large amout of sediment and fiant trace of blood Rate controlled Breathing compfortably Family concerned about chemo treatments and want Onc consult Family requesting to meet with Palliative service to establish goals of care Assessment and Plan (1) Septic shock due to undetermined organism Resolved now All cultures are NTD No clear source of infection (2) Atrial flutter Rate controlle with amiodarone Dose to be decreased before d/c as outlined by cardiology Continue Eliquis Watch H&H (3) Elevated troponin I level Current Visit: Yes Status: Acute This is likely due to demand ischemia with a history severe stenotic lesion of the aorta (4) H/O aortic valve replacement with porcine valve Current Visit: Yes Status: Acute Now with stenotic gradient at high risk for hemodynamic insufficiency related to preload dependency (5) Peripheral edema: Bumex held at admission Restarted today at lower dose 0.5 mg IVP BID (6) Groin infection and sacral pressure sore (stage II) Wound care following (7) Bladder cancer (HG-Urethelial carcinoma). S/p 36 RTX treatments and currently undergoing OP chemotherapy . Last treatment June 11 per family. Family very concerned about plan for ongoing treatment. Apparently next treatment was scheduled this week per family. Page to oncology placed to clarify tratment. (8) Goals of care, counseling/discussion: Pallitive care consult ordered. - Constitutional Vitals: Temp Pulse Resp BP Pulse Ox 98.1 F 90 22 139/64 94 06/30/17 08:00 06/30/17 08:06 06/30/17 08:00 06/30/17 08:00 06/30/17 08:00 General appearance: Present: cooperative, A&O X 3, pleasant, no acute distress, answers questions appropriately - Head Head exam: Present: atraumatic, normocephalic - Eye Eye exam: Present: PERRL, conjuntiva pink, sclera anicteric Pupils: Present: PERRL - Neck Neck exam general surgery: Present: supple, trachea midline. Absent: lymphadenopathy, thyromegaly - Respiratory Respiratory exam: Present: CTAB. Absent: accessory muscle use, rales, rhonchi, wheezes - Cardiovascular Cardiovascular exam: Present: irregular rhythm, +S1, +S2. Absent: diastolic murmur, gallop, rubs, systolic murmur - GI/Abdominal GI/Abdominal exam: Present: normal bowel sounds, soft, no peritoneal signs. Absent: distended, guarding, rebound, rigid, tenderness - Extremities Exam Extremities exam: Present: warm, radial pulses palpable and symmetrical. Absent : calf tenderness, cyanotic, pedal edema - Neurological Exam Neurological exam: Present: CN II-XII intact, oriented X3, no focal deficits. Absent: pronater drift, facial droop, speech deficit - Psychiatric Psychiatric exam: Present: normal affect, normal mood - Skin Skin exam: Present: dry, intact Internal Medicine: Result - Labs CBC & Chem 7: 06/30/17 18:13 06/30/17 05:14 Labs: Short CBC 06/30/17 Range/Units 05:14 WBC 10.1 (4.3-11.1) K/mcL Hgb 8.6 L (12.9-16.9) g/dL Hct 27.1 L (37.5-50.1) % Plt Count 234 (140-400) K/mcL Neutrophils # 8.8 (1.6-8.9) K/mcL BMP 06/30/17 05:14 Sodium 140 Potassium 4.3 Chloride 114 H Carbon Dioxide 18 L BUN 50 H Creatinine 1.09 Glucose 221 H Calcium 8.1 L Consult Discharge Plan - Plan Referrals: Mingo Wood DO [Primary Care Provider] -
[2017-06-30] MEDS ORDERED: Bisacodyl 10 MG RECTAL SUPPOSITORY RC PRN (14:30)
[2017-06-30 14:31] LABS: Bilirubin,Urine Negative (Negative); Blood,Urine Large (Negative); Clarity,Urine Turbid (Clear); Color,Urine Yellow (Yellow); Glucose,Urine (UA) >=1000 mg/dL (Normal); Ketones,Urine Negative (Negative); Leukocyte Esterase,Urine Large (Negative); Nitrite,Urine Negative (Negative); Protein,Urine 30 mg/dL (Neg-Trace); Specific Gravity,Urine 1.026 (1.010-1.025); Urobilinogen,Urine Normal (Normal)
[2017-06-30 14:33] LABS: Squamous Epithelial Cell,Urine Many per lpf (None-Few); WBC,Urine TNTC per hpf (0-3)
[2017-06-30 14:41] LABS: RBC,Urine Present per hpf (0-3)
[2017-06-30 14:43] LABS: Yeast,Urine Many per hpf (None Seen)
[2017-06-30 14:44] LABS: Bacteria,Urine Present per hpf (None-Few)
--- NOTE | 2017-06-30 14:45 | Palliative - Consult Note ---
Date of Encounter: 06/30/17 Time of Encounter: 13:15 - Assessment and Plan (1) Debility, unspecified Current Visit: Yes Status: Acute Assessment and plan: Patient having worsening debility during hospital stay. Recommend PT/OT for evaluation and continued therapy during remainder of hospital stay. Plan to resume [facility] health physical therapy at discharge. (2) Constipation Current Visit: Yes Status: Acute Assessment and plan: Patient reports having difficulty having bowel movements, offered Dulcolax suppository daily prn; patient agreed. Will order Dulcolax 10 mg suppository daily PRN. Qualifiers: Qualified Code(s): K59.00 - Constipation, unspecified (3) Altered mental status Current Visit: No Status: Acute Assessment and plan: Patient continues to be slightly confused. Will continue to monitor as hospital stay continues, as family reports patient is alert and oriented at home. Qualifiers: Altered mental status type: unspecified Qualified Code(s): R41.82 - Altered mental status, unspecified (4) Goals of care, counseling/discussion Current Visit: Yes Status: Acute Assessment and plan: Family reports has home health visits and Physical Therapy twice weekly by [facility] and private duty assistance 12 hours daily with family care at night. DME currently includes: hospital bed, soraya lift, wheelchair, BSC, walker, and canes. Evaluated family understanding of prognosis, family explains cardiology evaluated patient and presented that patient's aortic valve may be closing some due to infection, but will re-evaluate after illness clears ; family presents concern that patient was admitted a couple weeks ago for accident overdose of tramadol, hospitalist also visited questioning discharge planning which presented some concern for family. Explained that discharge planning is started early to ensure safe discharge, verbalized understanding. Questioned goals of care, family reports plan to take patient home and keep him comfortable while continuing aggressive treatment plan and visits with specialist. Palliative care will continue to follow patient daily and make further recommendations based on patient/family's wishes. (5) CKD (chronic kidney disease) Current Visit: Yes Status: Chronic Qualifiers: Chronic kidney disease stage: stage 3 (moderate) Qualified Code(s): N18.3 - Chronic kidney disease, stage 3 (moderate) Palliative-CN HPI - Data of Consult Patient: new to practice Consult date: 06/30/17 Requesting Physician: Marcus Colón MD Primary Care Provider: Mingo Wood, DO - Consult Narrative Palliative Care/Comfort Measures: Palliative care Reason for consult: Goals of care. History of present illness: Mr. Gonzalez is a 87 year old male arrived to ER with weakness, hypotensive, lethargy, and tachypneic with leukocytosis. Has a known stage 2 decubitus ulcer on admission. Chronic catheter on admission. CT of Abdomen and Pelvis performed, showing soft tissue within the retroperitoneum, representing metastatic disease, possible urothelial thickening within the ureters, but hydronephrosis and hydroureter are not visualized, Gupta Catheter present within urinary bladder with evidence of urinary bladder mural thickening, with pericystic fat stranding, suggesting cystitis, and very small bilateral pleural effusions with adjacent airspace disease. 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 Palliative care consult to evaluate goals of care, discharge planning, and presenting of options including hospice. Patient resting quietly with eyes closed on entry, son and present at bedside whom went to gather the remainder of the family for consulted meeting. Patient' s (Isabel), daughter (Franc), and sons (Carlos and Jordan) at bedside. Patient alert, but disoriented at times. 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 Lives with and family visits frequently. Oncology and Urology also reported to be consulted for evaluation of treatment plan. Patient denies pain, anxiety, or nausea. Does report continued problems with lack of appetite since being sick and some difficulty having bowel movements. CC: Marcus Colón MD Past Med Surg Social Fam HX - Past Medical History Medical history: cancer, diabetes, GERD, hyperlipidemia, hypertension, renal disease, thyroid disease, valvular heart disease, other Psychiatric history: no psych history - Past Surgical History Surgical History: carotid endarterectomy, knee replacement, orthopedic, other, prostatectomy, vascular surgery, other - Social History Smoking Status: Never smoker Smokeless Tobacco Status: No Alcohol use: none Drug use: none - Family History Brother Living Status: Hx Family Cardiac Disorders: Yes Medications and Allergies B Complex with Vitamin C [Vitamin B-Complex & C] 1 each PO DAILY 12/18/15 [ History] Cranberry Fruit Extract [Cranberry] 500 mg PO DAILY 12/18/15 [History] Cyanocobalamin (Vitamin B-12) [Vitamin B-12] 5,000 mcg SL DAILY 12/18/15 [ History] Gabapentin [Neurontin] 300 mg PO HS 12/18/15 [History] Garlic 1,000 mg PO DAILY 12/18/15 [History] Ginkgo Biloba 60 mg PO DAILY 12/18/15 [History] Gluc Lemos/MSM/Magnesium/Vit C [Glucosamine Complex-MSM Cap] 2 each PO DAILY [History] Insulin Glargine,Hum.rec.anlog [Lantus Solostar] 40 unit SQ HS 12/18/15 [History ] Insulin LISPRO [Humalog] 35 unit SQ TID 12/18/15 [History] Metoprolol XL (24 HR) Succ [Toprol Xl] 37.5 mg PO BID 12/18/15 [History] Nortriptyline [Pamelor] 25 mg PO HS 12/18/15 [History] Tumeric-Curcumin Complex 1 tab PO DAILY 12/18/15 [History] Vit C/E/Zn/Coppr/Lutein/Zeaxan [Preservision Areds 2 Softgel] 2 cap PO DAILY 09/26 [History] Atorvastatin Calcium [Lipitor] 80 mg PO HS 01/15/16 [History] Multivit-Min/Iron Fum/Folic AC [Merma-Teyskxu-Yewdmuan Tablet] 1 each PO DAILY 01/15/16 [History] Enalapril Maleate [Vasotec] 10 mg PO DAILY 04/18/16 [History] Fenofibrate [Lofibra] 160 mg PO DAILY 04/18/16 [History] Ranitidine HCl [Heartburn Relief] 150 mg PO DAILY 04/18/16 [History] Levothyroxine [Levothyroxine Sodium] 125 mcg PO DAILY@0630 06/27/16 [History] Lutein/Zeaxanthin [Lutein-Zeaxanthin 25-5 mg Sfgl] 1 each PO DAILY 06/27/16 [ History] Apixaban [Eliquis] 2.5 mg PO BID 12/26/16 [History] Bumetanide [Bumex] 1 mg PO BID 12/26/16 [History] Acetaminophen [Tylenol Arthritis] 650 mg PO BID 05/12/17 [History] Folic Acid 1 mg PO DAILY 05/12/17 [History] Finasteride [Proscar] 5 mg PO DAILY #7 tablet 06/18/17 [Rx] Tamsulosin [Flomax] 0.4 mg PO DAILY #7 cap.er.24h 06/18/17 [Rx] Cephalexin [Keflex] 500 mg PO QID 06/26/17 [History] Iron 65 mg PO DAILY 06/26/17 [History] Tramadol HCl [Ultram] 50 mg PO TID PRN 06/26/17 [History] 3 Allergy/AdvReac Type Severity Reaction Status Date / Time No Known Allergies Allergy Verified 06/26/17 13:07 - Constitutional Constitutional ROS PAL: decreased appetite, fatigue, lethargy - Cardiovascular Cardiovascular ROS: irregular heart rhythm (atrial fib/flutter) - Gastrointestinal Gastrointestinal: change in bowel habits, constipation, no abdominal pain, no nausea - Genitourinary Genitourinary ROS male: other Additional comments: Chronic gupta - Musculoskeletal Musculoskeletal ROS IM: muscle weakness (family reports left leg weakness post radiation therapy.) - Neurological Neurological ROS: memory loss - Psychiatric Psychiatric general PM: change in appetite Palliative Care-Exam - Constitutional Vitals: Temp Pulse Resp BP Pulse Ox 99.0 F 85 26 148/78 93 06/30/17 12:00 06/30/17 12:00 06/30/17 12:00 06/30/17 12:00 06/30/17 12:00 General appearance: Present: average body habitus, cooperative, obese - Head Head Exam: Present: normal inspection - Eye Eye exam: Present: normal appearance. Absent: periorbital swelling, periorbital tenderness - ENT ENT exam: Present: mucous membranes moist, normal exam - Neck Neck exam: Present: full ROM, normal inspection. Absent: tenderness - Respiratory Respiratory exam: Present: CTAB. Absent: accessory muscle use, respiratory distress - Cardiovascular Cardiovascular exam: Present: systolic murmur. Absent: JVD - Expanded Cardiovascular Exam Type of murmur: Present: systolic - GI/Abdominal Exam GI/Abdominal exam: Present: normal bowel sounds, soft. Absent: mass, tenderness - Rectal Rectal Exam: Present: deferred - Catheter Type: Urethral (Gupta) - Neurological Exam Neurological exam: Present: alert, altered - Psychiatric Psychiatric exam: Present: normal affect, normal mood. Absent: anxious Internal Medicine - CN: Reslt - Labs CBC & Chem 7: 06/30/17 05:14 06/30/17 05:14 Labs: Short CBC 06/30/17 Range/Units 05:14 WBC 10.1 (4.3-11.1) K/mcL Hgb 8.6 L (12.9-16.9) g/dL Hct 27.1 L (37.5-50.1) % Plt Count 234 (140-400) K/mcL Neutrophils # 8.8 (1.6-8.9) K/mcL BMP 06/30/17 05:14 Sodium 140 Potassium 4.3 Chloride 114 H Carbon Dioxide 18 L BUN 50 H Creatinine 1.09 Glucose 221 H Calcium 8.1 L Urine 06/30/17 Range/Units 12:00 Urine Color Yellow (Yellow) Urine Clarity Turbid A (Clear) Urine pH 6.0 (5.0-8.0) pH Units Ur Specific [place] 1.026 H (1.010-1.025) Urine Protein 30 H (Neg-Trace) mg/dL Urine Glucose (UA) >=1000 H (Normal) mg/dL Consult Discharge Plan - Plan Referrals: Mingo Wood DO [Primary Care Provider] - Palliative Quality Palliative Quality: Screen for Code Status: Yes, Screen for Goals of Care: Yes, Screen for Pain: Yes (No pain medicine started.), If Pain Regimen Started, Initiate Bowel Regimen: Yes, Screen for Nausea/Vomitting: Yes
[2017-06-30] MEDS: Bumetanide 1 MG/4 ML VIAL IVP SCH (16:41)
[2017-06-30 18:49] LABS: Basophils % 0.4 %; Eosinophils # 0.2 K/mcL (0.0-0.6); Hematocrit 29.2 % (37.5-50.1); Hemoglobin 9.3 g/dL (12.9-16.9); Immature Granulocytes % 1.3 % (0-4); Lymphocytes # 0.5 K/mcL (0.6-4.6); Lymphocytes % 4.8 %; Mean Corpuscular HGB Conc 31.8 g/dL (31.6-35.5); Mean Corpuscular Hemoglobin 34.4 pg (28.0-33.3); Mean Corpuscular Volume 108.1 fL (83.0-100.0); Mean Platelet Volume 10.3 fL (9.4-12.4); Monocytes # 0.5 K/mcL (0.0-1.3); Monocytes % 4.8 %; Neutrophils # 9.1 K/mcL (1.6-8.9); Nucleated Red Blood Cells 0.2 /100 WBC (0); Platelet Count 264 K/mcL (140-400); Red Cell Distribution Width 16.6 % (11.5-14.5); Segmented Neutrophils % 86.7 %
--- NOTE | 2017-06-30 22:37 | Electrocardiograph Report ---
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
[2017-07-01] MEDS: Ipratropium/Albuterol Neb 3 ML IH SCH ×4 (03:38→22:15)
[2017-07-01] MEDS: Miconazole w/zinc oxide&karaya 92 APPL/92 GM TUBE TP SCH ×3 (03:40→20:50)
[2017-07-01 03:52] LABS: Basophils # 0.1 K/mcL (0.0-0.2); Basophils % 0.4 %; Eosinophils # 0.2 K/mcL (0.0-0.6); Eosinophils % 2.1 %; Hematocrit 27.4 % (37.5-50.1); Immature Granulocytes % 1.5 % (0-4); Lymphocytes # 0.9 K/mcL (0.6-4.6); Lymphocytes % 7.7 %; Mean Corpuscular HGB Conc 32.8 g/dL (31.6-35.5); Mean Corpuscular Hemoglobin 34.2 pg (28.0-33.3); Mean Corpuscular Volume 104.2 fL (83.0-100.0); Monocytes # 0.7 K/mcL (0.0-1.3); Monocytes % 5.9 %; Neutrophils # 9.6 K/mcL (1.6-8.9); Nucleated Red Blood Cells 0.3 /100 WBC (0); Platelet Count 251 K/mcL (140-400); Red Blood Count 2.63 M/mcL (4.19-5.50); Red Cell Distribution Width 16.4 % (11.5-14.5); Segmented Neutrophils % 82.4 %
[2017-07-01 04:09] LABS: Alanine Aminotransferase 93 Units/L (7-52); Albumin 2.4 g/dL (3.5-5.7); Albumin/Globulin Ratio 0.7 (1.1-2.2); Alkaline Phosphatase 92 Units/L (34-104); Aspartate Amino Transferase 75 Units/L (13-39); BUN/Creatinine Ratio 47 (6-26); Bilirubin,Total 0.6 mg/dL (0.3-1.0); Blood Urea Nitrogen 47 mg/dL (8-23); Calcium 8.5 mg/dL (8.6-10.3); Carbon Dioxide 19 mEq/L (23-29); Chloride 115 mEq/L (98-107); Globulin 3.3 g/dL (2.4-3.5); Glucose 227 mg/dL (70-105); Osmolality,Calculated 309 (280-300); Potassium 4.3 mEq/L (3.5-5.1); Sodium 140 mEq/L (136-145); Total Protein 5.7 g/dL (6.4-8.9); eGFR For African Americans > 60 (> 60); eGFR For Non-African Americans > 60 (> 60)
[2017-07-01] MEDS: Bumetanide 1 MG/4 ML VIAL IVP SCH ×2 (06:08→17:20)
[2017-07-01] MEDS: Apixaban 2.5 MG TABLET PO SCH ×2 (08:21→20:50)
[2017-07-01] MEDS: *HR* Amiodarone 200 MG TABLET PO SCH ×2 (08:21→20:50)
[2017-07-01] MEDS: Nystatin Cream 15 GM TUBE TP SCH (08:22)
[2017-07-01] MEDS: Insulin LISPRO 300 UNITS/3 ML VIAL SQ SCH ×4 (08:22→20:50)
--- NOTE | 2017-07-01 09:24 | Internal Med Progress Note ---
Date of Encounter: 07/01/17 Time of Encounter: 08:50 - Subjective Interval history: Interval changes: 06/30/2017 Pressors d/c'd prior to transfer to Hospitalist service Antibiotics d/c prior to hospitalist service Ra menchaca has large amout of sediment and fiant trace of blood Rate controlled Breathing compfortably Family concerned about chemo treatments and want Onc consult Family requesting to meet with Palliative service to establish goals of care 07/01/2017 Patient states he feels good Net neg 2.3 L fluid balance over night Palliative care and Medical Oncology consults greatly appreciated Assessment and Plan (1) Septic shock due to undetermined organism Resolved now All cultures are NTD No clear source of infection (2) Atrial flutter Rate controlle with amiodarone Dose to be decreased before d/c as outlined by cardiology Continue Eliquis Watch H&H (3) Elevated troponin I level Current Visit: Yes Status: Acute This is likely due to demand ischemia with a history severe stenotic lesion of the aorta (4) H/O aortic valve replacement with porcine valve Current Visit: Yes Status: Acute Now with stenotic gradient at high risk for hemodynamic insufficiency related to preload dependency (5) Peripheral edema: Bumex held at admission Restarted today at lower dose 0.5 mg IVP BID (6) Groin infection and sacral pressure sore (stage II) Wound care following (7) Bladder cancer (HG-Urethelial carcinoma). S/p 36 RTX treatments and currently undergoing OP chemotherapy . Last treatment June 11 per family. Family very concerned about plan for ongoing treatment. Apparently next treatment was scheduled this week per family. Page to oncology placed to clarify tratment. (8) Goals of care, counseling/discussion: Pallitive care consult ordered. - Constitutional Vitals: Temp Pulse Resp BP Pulse Ox 98.2 F 83 26 135/63 94 07/01/17 08:00 07/01/17 08:00 07/01/17 08:00 07/01/17 08:00 07/01/17 08:00 General appearance: Present: cooperative, A&O X 3, pleasant, no acute distress, answers questions appropriately - Head Head exam: Present: atraumatic, normocephalic - Eye Eye exam: Present: EOMI, PERRL, conjuntiva pink, sclera anicteric Pupils: Present: PERRL - Neck Neck exam general surgery: Present: supple, trachea midline. Absent: lymphadenopathy, nuchal rigidity, thyromegaly - Respiratory Respiratory exam: Present: CTAB. Absent: accessory muscle use, rales, rhonchi, wheezes - Cardiovascular Cardiovascular exam: Present: RRR, +S1, +S2. Absent: diastolic murmur, gallop, rubs, systolic murmur - GI/Abdominal GI/Abdominal exam: Present: normal bowel sounds, soft, no peritoneal signs. Absent: distended, guarding, rebound, tenderness - Extremities Exam Extremities exam: Present: warm, radial pulses palpable and symmetrical. Absent : calf tenderness, cyanotic, pedal edema - Neurological Exam Neurological exam: Present: CN II-XII intact, oriented X3, no focal deficits. Absent: pronater drift, facial droop, speech deficit - Psychiatric Psychiatric exam: Present: normal affect, normal mood - Skin Skin exam: Present: dry, intact, warm Additional comments: Stage II sacral pressure sores Internal Medicine: Result - Labs CBC & Chem 7: 07/01/17 03:37 07/01/17 03:37 Labs: Short CBC 06/30/17 07/01/17 Range/Units 18:13 03:37 WBC 10.5 11.7 H (4.3-11.1) K/mcL Hgb 9.3 L 9.0 L (12.9-16.9) g/dL Hct 29.2 L 27.4 L (37.5-50.1) % Plt Count 264 251 (140-400) K/mcL Neutrophils # 9.1 H 9.6 H (1.6-8.9) K/mcL BMP 07/01/17 03:37 Sodium 140 Potassium 4.3 Chloride 115 H Carbon Dioxide 19 L BUN 47 H Creatinine 1.01 Glucose 227 H Calcium 8.5 L Liver Function 07/01/17 Range/Units 03:37 Total Bilirubin 0.6 (0.3-1.0) mg/dL AST 75 H (13-39) Units/L ALT 93 H (7-52) Units/L Alkaline Phosphatase 92 (34-104) Units/L Albumin 2.4 L (3.5-5.7) g/dL Urine 06/30/17 Range/Units 12:00 Urine Color Yellow (Yellow) Urine Clarity Turbid A (Clear) Urine pH 6.0 (5.0-8.0) pH Units Ur Specific [place] 1.026 H (1.010-1.025) Urine Protein 30 H (Neg-Trace) mg/dL Urine Glucose (UA) >=1000 H (Normal) mg/dL Consult Discharge Plan - Plan Referrals: Mingo Wood DO [Primary Care Provider] -
--- NOTE | 2017-07-01 13:53 | Oncology Inp Consult Note ---
<Anna Hernandez L - Last Filed: 07/02/17 15:44> Date of Encounter: 07/01/17 Time of Encounter: 13:53 Assessment and Plan (1) Bladder cancer Status: Chronic Assessment and plan: Muscle invasive high grade urothelial carcinoma. S/P cycle 1 Keytruda 06/11/2017. Admitted for septic shock 06/26/2017 as detailed per HPI. Patient now improving, he is off pressors and planned for stepdown soon. No clear source of infection identified. Family asked if Keytruda likely source or cause of his worsening renal function. His worsening in renal function appears to be acute and likely related to septic shock, however, will need to be monitored prior to starting and with restarting Keytruda. Keytruda is considered immunotherapy and therefore associated with immune mediated side effects, immune mediated nephritis can occur, however, this is not likely after only his first treatment. Also, his renal function has been worsening since his recent admission for accidental ultram overdose which may play role as well. Plan to continue to monitor. Palliative care in room prior to my arrival. Patient and patients family at bedside. After discussion patient is still interested in pursuing Keytruda treatments once his acute issues resolve and he is discharged home. I encouraged him to participate with therapy, he has not ambulated since his admission and is quite weak. His appetite is poor, inpatient RD has been consulted and following patient. Encouraged PO intake. He plans to discharge home with home health. Family wished to discuss his recent CT abdomen/pelvis results, which essentially show stability of cancer with slight increase in size of retroperitoneal mass (The largest discrete nodule measures roughly 1.8 cm, previously 1.6 cm.) Explained that restaging imaging would not be accurate yet as patient has only receive one cycle, imaging is not usually recommended for at least 4-6 cycles. Patient and patients family understand, but state they just wanted to know patients current cancer burden. He is rescheduled to see Dr. Chaudhry July 23 with treatment same day if he is recovered from his acute illness by this time. Oncology will sign off at this time, please feel free to contact for any further questions or concerns. Please refer to Dr. Lancaster's attestation below for further details. Qualifiers: Bladder location: unspecified site Qualified Code(s): C67.9 - Malignant neoplasm of bladder, unspecified - Data of Consult Requesting Physician: Marcus Colón MD Primary Care Provider: Mingo Wood, DO - Consult Narrative Reason for consult: muscle invasive high grade urothelial carcinoma History of present illness: Mr. Gonzalez is a 87 year old male with oncologic history significant for muscle invasive high grade urothelial carcinoma. Initially treated starting at around September 2015 with antibiotics however had recurrent episodes of hematuria. He underwent TURBT of the exophytic mass grossly 5cm in size on 12/18/15. Final pathology shows muscle invasive high grade urothelial carcinoma. CT abd 11/26 did not show any adenopathy in the abd or pelvic regions. He started [employer] 01/2016-started weekly carbotaxol, carboplatin held at some point during course of therapy for worsening renal function, his last dose of taxol was 03/10/2016. Completed Radiotherapy 03/28. Continued surveillance with scans and cystoscopy prior to 03/2017 had not shown sign of recurrence, indicated some post treatment changes. He had a CT in March 2017 which showed an enlarging retroperitoneal adenopathy suspicious for recurrence. At this time, Dr. Chaudhry, treating oncologist, discussed initiating palliative immunotherapy. Mr. Gonzalez received his first cycle of Keytruda on 06/11/2017, with a q3 week cycle. He presented to ER via squad, patients family had called squad when patient became lethargic and hypotensive. He was recently discharged from the hospital for accidental ultram overdose with resultant worsening renal function. In the emergency department patient was found to be hypotensive with a systolic in the 60s to 70s. He was given fluid rescucitation and continued to be hypotensive and was placed on push dose norepinephrine. He is being treated with empiric antibiotics vancomycin and Zosyn. Chest x-ray did not reveal pneumonia or pulmonary process. He does have elevated troponin 1.5. He meets septic shock with hypotension refractory to fluids requiring vasopressor Levophed and admitted to ICU. He is medically and clinically improving, his white count is trending down, he is off pressors, planning to de-escalate antibiotics and he is planned for stepdown bed when bed is available. Oncology consulted for further family discussion regarding his recent imaging and treatment options. Past Med Surg Social Fam HX - Past Medical History Medical history: cancer, diabetes, GERD, hyperlipidemia, hypertension, renal disease, thyroid disease, valvular heart disease, other Psychiatric history: no psych history - Past Surgical History Surgical History: carotid endarterectomy, knee replacement, orthopedic, other, prostatectomy, vascular surgery, other - Social History Smoking Status: Never smoker Smokeless Tobacco Status: No Alcohol use: none Drug use: none - Family History Brother Living Status: Hx Family Cardiac Disorders: Yes Medications and Allergies B Complex with Vitamin C [Vitamin B-Complex & C] 1 each PO DAILY 12/18/15 [ History] Cranberry Fruit Extract [Cranberry] 500 mg PO DAILY 12/18/15 [History] Cyanocobalamin (Vitamin B-12) [Vitamin B-12] 5,000 mcg SL DAILY 12/18/15 [ History] Gabapentin [Neurontin] 300 mg PO HS 12/18/15 [History] Garlic 1,000 mg PO DAILY 12/18/15 [History] Ginkgo Biloba 60 mg PO DAILY 12/18/15 [History] Gluc Lemos/MSM/Magnesium/Vit C [Glucosamine Complex-MSM Cap] 2 each PO DAILY [History] Insulin Glargine,Hum.rec.anlog [Lantus Solostar] 40 unit SQ HS 12/18/15 [History ] Insulin LISPRO [Humalog] 35 unit SQ TID 12/18/15 [History] Metoprolol XL (24 HR) Succ [Toprol Xl] 37.5 mg PO BID 12/18/15 [History] Nortriptyline [Pamelor] 25 mg PO HS 12/18/15 [History] Tumeric-Curcumin Complex 1 tab PO DAILY 12/18/15 [History] Vit C/E/Zn/Coppr/Lutein/Zeaxan [Preservision Areds 2 Softgel] 2 cap PO DAILY 09/26 [History] Atorvastatin Calcium [Lipitor] 80 mg PO HS 01/15/16 [History] Multivit-Min/Iron Fum/Folic AC [Kpfrd-Focehez-Nhojawhx Tablet] 1 each PO DAILY 01/15/16 [History] Enalapril Maleate [Vasotec] 10 mg PO DAILY 04/18/16 [History] Fenofibrate [Lofibra] 160 mg PO DAILY 04/18/16 [History] Ranitidine HCl [Heartburn Relief] 150 mg PO DAILY 04/18/16 [History] Levothyroxine [Levothyroxine Sodium] 125 mcg PO DAILY@0630 06/27/16 [History] Lutein/Zeaxanthin [Lutein-Zeaxanthin 25-5 mg Sfgl] 1 each PO DAILY 06/27/16 [ History] Apixaban [Eliquis] 2.5 mg PO BID 12/26/16 [History] Bumetanide [Bumex] 1 mg PO BID 12/26/16 [History] Acetaminophen [Tylenol Arthritis] 650 mg PO BID 05/12/17 [History] Folic Acid 1 mg PO DAILY 05/12/17 [History] Finasteride [Proscar] 5 mg PO DAILY #7 tablet 06/18/17 [Rx] Tamsulosin [Flomax] 0.4 mg PO DAILY #7 cap.er.24h 06/18/17 [Rx] Cephalexin [Keflex] 500 mg PO QID 06/26/17 [History] Iron 65 mg PO DAILY 06/26/17 [History] Tramadol HCl [Ultram] 50 mg PO TID PRN 06/26/17 [History] 3 Allergy/AdvReac Type Severity Reaction Status Date / Time No Known Allergies Allergy Verified 06/26/17 13:07 Constitutional: Present: anorexia, fatigue, weakness. Absent: chills, fever(s) Eyes: Absent: change in vision Nose, mouth and throat: Absent: dysphagia Cardiovascular: Absent: chest pain, irregular heart rhythm, palpitations Respiratory: Present: dyspnea on exertion. Absent: cough Gastrointestinal: Absent: abdominal pain, hematemesis, hematochezia, melena, nausea, vomiting Additional comments: chronic gupta catheter since admission to hospital for accidental ultram overdose on June 17 2017 Musculoskeletal: Present: muscle weakness Additional comments: Has not ambulated well over past 4 weeks due to increased weakness Integumentary: Present: wounds Additional comments: pressure ulcer to coccyx Neurological: Absent: focal weakness, frequent falls Psychiatric: Present: change in appetite Hematologic/Lymphatic: Present: as per HPI Oncology - Exam - Constitutional Vitals: Temp Pulse Resp BP Pulse Ox 98.2 F 88 24 146/65 96 07/01/17 12:00 07/01/17 12:00 07/01/17 12:00 07/01/17 12:00 07/01/17 12:00 General appearance: cooperative, no acute distress, obese, no febrile Exam: appears fatigued but easily arousable, chronically ill appearing - Head Head exam: Present: atraumatic - ENT ENT exam: Present: mucous membranes moist - Respiratory Respiratory exam: Present: CTAB. Absent: respiratory distress - Cardiovascular Cardiovascular exam: Present: irregular rhythm, systolic murmur - GI/Abdominal GI/Abdominal exam: Present: normal bowel sounds, soft. Absent: tenderness - Extremities Exam Extremities exam: Absent: calf tenderness Additional comments: generalized weakness overall, slight LLE weakness patients family state this occurred following, +2 pitting BLE edema - Neurological Exam Neurological exam: Present: alert, oriented X3, no focal deficits, strengths equal and symetr throughout - Psychiatric Psychiatric exam: Present: normal affect, normal mood - Skin Skin exam: Present: normal color, warm Additional comments: sacral pressure ulcer (not observed) Oncology - Results Labs: Short CBC 06/30/17 07/01/17 Range/Units 18:13 03:37 WBC 10.5 11.7 H (4.3-11.1) K/mcL Hgb 9.3 L 9.0 L (12.9-16.9) g/dL Hct 29.2 L 27.4 L (37.5-50.1) % Plt Count 264 251 (140-400) K/mcL Neutrophils # 9.1 H 9.6 H (1.6-8.9) K/mcL BMP 07/01/17 03:37 Sodium 140 Potassium 4.3 Chloride 115 H Carbon Dioxide 19 L BUN 47 H Creatinine 1.01 Glucose 227 H Calcium 8.5 L Liver Function 07/01/17 Range/Units 03:37 Total Bilirubin 0.6 (0.3-1.0) mg/dL AST 75 H (13-39) Units/L ALT 93 H (7-52) Units/L Alkaline Phosphatase 92 (34-104) Units/L Albumin 2.4 L (3.5-5.7) g/dL Urine 06/30/17 Range/Units 12:00 Urine Color Yellow (Yellow) Urine Clarity Turbid A (Clear) Urine pH 6.0 (5.0-8.0) pH Units Ur Specific [place] 1.026 H (1.010-1.025) Urine Protein 30 H (Neg-Trace) mg/dL Urine Glucose (UA) >=1000 H (Normal) mg/dL Consult Discharge Plan - Plan Referrals: Mingo Wood DO [Primary Care Provider] - <Genaro Lancaster - Last Filed: 07/03/17 10:07> Date of Encounter: 07/01/17 - Data of Consult Requesting Physician: Fredi Godoy Primary Care Provider: Mingo Wood DO - Consult Narrative History of present illness: Mr. Gonzalez is a 87 year old male Oncology - Exam - Constitutional Vitals: Temp Pulse Resp BP Pulse Ox 97.6 F 77 18 152/64 97 07/03/17 07:24 07/03/17 07:24 07/03/17 07:24 07/03/17 07:24 07/03/17 07:24 Oncology - Results Labs: Short CBC 07/03/17 Range/Units 02:53 WBC 9.9 (4.3-11.1) K/mcL Hgb 9.2 L (12.9-16.9) g/dL Hct 27.9 L (37.5-50.1) % Plt Count 226 (140-400) K/mcL Neutrophils # 7.0 (1.6-8.9) K/mcL BMP 07/03/17 02:53 Sodium 141 Potassium 3.9 Chloride 112 H Carbon Dioxide 24 BUN 41 H Creatinine 0.94 Glucose 167 H Calcium 8.4 L - Attending Attestation Seen and examined patient and agree with assessment and plan. Patients overall burden of cancer at this point is low. It is too early to know if the pembrolizumab is working. He is otherwise tolerating it well. Once discharged we can consider reinitiating it for him to help control his bladder cancer.
--- NOTE | 2017-07-01 14:08 | Palliative Progress Note ---
Date of Encounter: 07/01/17 Time of Encounter: 13:15 - Assessment and plan (1) Debility, unspecified Current Visit: Yes Status: Acute Assessment and plan: Patient unable to perform self care. Continued weakness present. PT/OT once able. (2) Constipation Current Visit: Yes Status: Acute Assessment and plan: Patient had bowel movement last night. Continue Dulcolax Suppository PRN. Qualifiers: Qualified Code(s): K59.00 - Constipation, unspecified (3) Altered mental status Current Visit: No Status: Acute Assessment and plan: Patient remains difficult to remain aroused requiring multiple stimulations for questioning with SW. Will allow to rest today and re-evaluate tomorrow. Qualifiers: Altered mental status type: unspecified Qualified Code(s): R41.82 - Altered mental status, unspecified (4) Goals of care, counseling/discussion Current Visit: Yes Status: Acute Assessment and plan: Discussed plan of care at discharge. Family was explained benefits of rehab. [facility] wishes to take patient home with home health and rehab. Also requested specialty mattress to protect skin for home use; SW aware. (5) CKD (chronic kidney disease) Current Visit: Yes Status: Chronic Qualifiers: Chronic kidney disease stage: stage 3 (moderate) Qualified Code(s): N18.3 - Chronic kidney disease, stage 3 (moderate) - Time Spent With Patient Total time spent is greater than 50% in coordination of care (as documented) at patient's floor/unit and/or counseling patient: Greater than 35 minutes (In depth family conversation regarding plan of care at discharge and explanation of MPOA forms.) - Subjective Interval history: Patient laying in bed, intermittently dozing to sleep with , two daughters, and son Carlos at bedside. Denies pain, anxiety, or nausea. Met patient in conjunction with SW. Family expressed concern over discharge planning; reports may be in facility for another week. reports patient isn't eating must of the food being given to him, but eats all the food she brings him. reports Doctors told her that once infection is out of his system, test results and "views of everything" may appear differently, and waiting for those results prior to further decisions about treatment being made. Explained options for MPOA and forms given to patient's . SW explained options for rehabilitation if needed, explaining swing bed options; family refused [facility]. - Constitutional Vitals: Abnormal lab results WBC 11.7 K/mcL (4.3-11.1) H 07/01/17 03:37 RBC 2.63 M/mcL (4.19-5.50) L 07/01/17 03:37 Hgb 9.0 g/dL (12.9-16.9) L 07/01/17 03:37 Hct 27.4 % (37.5-50.1) L 07/01/17 03:37 MCV 104.2 fL (83.0-100.0) H 07/01/17 03:37 MCH 34.2 pg (28.0-33.3) H 07/01/17 03:37 RDW 16.4 % (11.5-14.5) H 07/01/17 03:37 Neutrophils # 9.6 K/mcL (1.6-8.9) H 07/01/17 03:37 Nucleated RBCs/100 WBC 0.3 /100 WBC (0) H 07/01/17 03:37 Chloride 115 mEq/L (98-107) H 07/01/17 03:37 Carbon Dioxide 19 mEq/L (23-29) L 07/01/17 03:37 BUN 47 mg/dL (8-23) H 07/01/17 03:37 BUN/Creatinine Ratio 47 (6-26) H 07/01/17 03:37 Glucose 227 mg/dL (70-105) H 07/01/17 03:37 POC Glucose 247 (58-89) H 07/01/17 11:39 Calculated Osmolality 309 (280-300) H 07/01/17 03:37 Calcium 8.5 mg/dL (8.6-10.3) L 07/01/17 03:37 Direct Bilirubin 0.3 mg/dL (0.0-0.2) H 06/27/17 03:40 AST 75 Units/L (13-39) H 07/01/17 03:37 ALT 93 Units/L (7-52) H 07/01/17 03:37 Troponin I 2.37 ng/mL (< 0.04) H* 06/27/17 06:48 B-Natriuretic Peptide 351 pg/mL (Less than 100) H 06/26/17 12:03 Serum Total Protein 5.7 g/dL (6.4-8.9) L 07/01/17 03:37 Albumin 2.4 g/dL (3.5-5.7) L 07/01/17 03:37 Albumin/Globulin Ratio 0.7 (1.1-2.2) L 07/01/17 03:37 Urine Clarity Turbid (Clear) A 06/30/17 12:00 Ur Specific [place] 1.026 (1.010-1.025) H 06/30/17 12:00 Urine Protein 30 mg/dL (Neg-Trace) H 06/30/17 12:00 Urine Glucose (UA) >=1000 mg/dL (Normal) H 06/30/17 12:00 Urine Blood Large (Negative) H 06/30/17 12:00 Ur Leukocyte Esterase Large (Negative) H 06/30/17 12:00 Urine Microscopic WBC TNTC per hpf (0-3) H 06/30/17 12:00 Ur Squamous Epith Cells Many per lpf (None-Few) H 06/30/17 12:00 Ur Transition Epith Cell Moderate per hpf (None-Few) H 06/26/17 12:20 Urine Yeast Many per hpf (None Seen) H 06/30/17 12:00 - Head Head exam: Present: normal inspection - Eye Eye exam: Present: normal appearance - ENT ENT exam: Present: mucous membranes dry - Neck Neck exam: Present: full ROM, normal inspection - Respiratory Respiratory exam: Present: CTAB. Absent: respiratory distress - Cardiovascular Cardiovascular exam: Present: irregular rhythm - GI/Abdominal GI/Abdominal exam: Present: normal bowel sounds, soft. Absent: tenderness - Rectal Rectal exam: Present: deferred - Neurological Exam Neurological exam: Present: alert, altered - Psychiatric Psychiatric exam: Present: normal affect, normal mood Palliative Quality Palliative Quality: Screen for Code Status: Yes, Screen for Goals of Care: Yes, Screen for Pain: Yes (No pain medicine started.), If Pain Regimen Started, Initiate Bowel Regimen: Yes, Screen for Nausea/Vomitting: Yes - Labs CBC & Chem 7: 07/01/17 03:37 07/01/17 03:37 Labs: Laboratory Results - last 24 hr 06/30/17 06/30/17 06/30/17 12:00 16:33 18:13 WBC 10.5 RBC 2.70 L Hgb 9.3 L Hct 29.2 L MCV 108.1 H MCH 34.4 H MCHC 31.8 RDW 16.6 H Plt Count 264 MPV 10.3 Immature Gran % 1.3 Seg Neutrophils % 86.7 Lymphocytes % 4.8 Monocytes % 4.8 Eosinophils % 2.0 Basophils % 0.4 Neutrophils # 9.1 H Lymphocytes # 0.5 L Monocytes # 0.5 Eosinophils # 0.2 Basophils # 0.0 Nucleated RBCs/100 WBC 0.2 H Sodium Potassium Chloride Carbon Dioxide BUN Creatinine Est GFR ( Amer) Est GFR (Non-Af Amer) BUN/Creatinine Ratio Glucose POC Glucose 215 H Calculated Osmolality Calcium Total Bilirubin AST ALT Alkaline Phosphatase Serum Total Protein Albumin Globulin Albumin/Globulin Ratio Urine Color Yellow Urine Clarity Turbid A Urine pH 6.0 Ur Specific [place] 1.026 H Urine Protein 30 H Urine Glucose (UA) >=1000 H Urine Ketones Negative Urine Blood Large H Urine Nitrite Negative Urine Bilirubin Negative Urine Urobilinogen Normal Ur Leukocyte Esterase Large H Urine Microscopic RBC Present Urine Microscopic WBC TNTC H Ur Squamous Epith Cells Many H Urine Bacteria Present Hyaline Casts Test Not Performed Urine Yeast Many H Ur Culture Indicated? NO. 06/30/17 07/01/17 07/01/17 19:56 03:37 03:37 WBC 11.7 H RBC 2.63 L Hgb 9.0 L Hct 27.4 L MCV 104.2 H MCH 34.2 H MCHC 32.8 RDW 16.4 H Plt Count 251 MPV 10.0 Immature Gran % 1.5 Seg Neutrophils % 82.4 Lymphocytes % 7.7 Monocytes % 5.9 Eosinophils % 2.1 Basophils % 0.4 Neutrophils # 9.6 H Lymphocytes # 0.9 Monocytes # 0.7 Eosinophils # 0.2 Basophils # 0.1 Nucleated RBCs/100 WBC 0.3 H Sodium 140 Potassium 4.3 Chloride 115 H Carbon Dioxide 19 L BUN 47 H Creatinine 1.01 Est GFR ( Amer) > 60 Est GFR (Non-Af Amer) > 60 BUN/Creatinine Ratio 47 H Glucose 227 H POC Glucose 239 H Calculated Osmolality 309 H Calcium 8.5 L Total Bilirubin 0.6 AST 75 H ALT 93 H Alkaline Phosphatase 92 Serum Total Protein 5.7 L Albumin 2.4 L Globulin 3.3 Albumin/Globulin Ratio 0.7 L Urine Color Urine Clarity Urine pH Ur Specific [place] Urine Protein Urine Glucose (UA) Urine Ketones Urine Blood Urine Nitrite Urine Bilirubin Urine Urobilinogen Ur Leukocyte Esterase Urine Microscopic RBC Urine Microscopic WBC Ur Squamous Epith Cells Urine Bacteria Hyaline Casts Urine Yeast Ur Culture Indicated? 07/01/17 07/01/17 07:58 11:39 WBC RBC Hgb Hct MCV MCH MCHC RDW Plt Count MPV Immature Gran % Seg Neutrophils % Lymphocytes % Monocytes % Eosinophils % Basophils % Neutrophils # Lymphocytes # Monocytes # Eosinophils # Basophils # Nucleated RBCs/100 WBC Sodium Potassium Chloride Carbon Dioxide BUN Creatinine Est GFR ( Amer) Est GFR (Non-Af Amer) BUN/Creatinine Ratio Glucose POC Glucose 228 H 247 H Calculated Osmolality Calcium Total Bilirubin AST ALT Alkaline Phosphatase Serum Total Protein Albumin Globulin Albumin/Globulin Ratio Urine Color Urine Clarity Urine pH Ur Specific [place] Urine Protein Urine Glucose (UA) Urine Ketones Urine Blood Urine Nitrite Urine Bilirubin Urine Urobilinogen Ur Leukocyte Esterase Urine Microscopic RBC Urine Microscopic WBC Ur Squamous Epith Cells Urine Bacteria Hyaline Casts Urine Yeast Ur Culture Indicated? Consult Discharge Plan - Plan Referrals: Mingo Wood, DO [Primary Care Provider] -
[2017-07-01] MEDS: Nystatin POWDER 30 GM BOTTLE TP SCH ×2 (16:40→20:50)
--- NOTE | 2017-07-01 18:38 | Electrocardiograph Report ---
[place] [id number] Test Date: 2017-06-27 Pat Name: Stevie Gonzalez Department: 109 Room: 10 Gender: M [employer]: REBECCA : [id number] Requested By: Edson Win Order Number: [id number] Reading MD: Yeyo Lea MD Measurements Intervals [place] Rate: 96 P: [place]: 0 QRS: 28 QRSD: 117 T: 195 QT: 370 QTc: 423 Interpretive Statements ATRIAL FLUTTER/TACHYCARDIA WITH ABERRANT CONDUCTION OR VENTRICULAR PREMATURE COMPLEXES ANTEROSEPTAL MYOCARDIAL INFARCTION, OF INDETERMINATE AGE Electronically Signed On 07-01-2017 18:36:26 EDT by Yeyo Lea MD
[2017-07-02] MEDS: Ipratropium/Albuterol Neb 3 ML IH SCH ×4 (03:40→21:35)
[2017-07-02 03:52] LABS: Basophils # 0.1 K/mcL (0.0-0.2); Basophils % 0.5 %; Eosinophils # 0.2 K/mcL (0.0-0.6); Eosinophils % 1.8 %; Hematocrit 28.2 % (37.5-50.1); Immature Granulocytes % 2.4 % (0-4); Lymphocytes # 1.3 K/mcL (0.6-4.6); Lymphocytes % 10.7 %; Mean Corpuscular HGB Conc 31.9 g/dL (31.6-35.5); Mean Corpuscular Hemoglobin 34.2 pg (28.0-33.3); Mean Corpuscular Volume 107.2 fL (83.0-100.0); Mean Platelet Volume 10.2 fL (9.4-12.4); Monocytes # 0.7 K/mcL (0.0-1.3); Monocytes % 5.5 %; Neutrophils # 9.9 K/mcL (1.6-8.9); Platelet Count 255 K/mcL (140-400); Red Blood Count 2.63 M/mcL (4.19-5.50); Red Cell Distribution Width 16.7 % (11.5-14.5); Segmented Neutrophils % 79.1 %
[2017-07-02 04:11] LABS: BUN/Creatinine Ratio 46 (6-26); Blood Urea Nitrogen 45 mg/dL (8-23); Calcium 8.5 mg/dL (8.6-10.3); Carbon Dioxide 21 mEq/L (23-29); Chloride 113 mEq/L (98-107); Glucose 236 mg/dL (70-105); Osmolality,Calculated 309 (280-300); Potassium 4.2 mEq/L (3.5-5.1); Sodium 140 mEq/L (136-145); eGFR For African Americans > 60 (> 60); eGFR For Non-African Americans > 60 (> 60)
[2017-07-02] MEDS: *HR* Amiodarone 200 MG TABLET PO SCH ×2 (08:09→22:13)
[2017-07-02] MEDS: Bumetanide 1 MG/4 ML VIAL IVP SCH ×2 (08:09→17:18)
[2017-07-02] MEDS: Apixaban 2.5 MG TABLET PO SCH ×2 (08:09→22:13)
[2017-07-02] MEDS: Insulin LISPRO 300 UNITS/3 ML VIAL SQ SCH ×4 (08:13→23:33)
[2017-07-02] MEDS: Miconazole w/zinc oxide&karaya 92 APPL/92 GM TUBE TP SCH ×2 (08:19→22:34)
[2017-07-02] MEDS: Nystatin POWDER 30 GM BOTTLE TP SCH ×3 (08:19→22:34)
--- NOTE | 2017-07-02 09:45 | Internal Med Progress Note ---
Date of Encounter: 07/02/17 Time of Encounter: 09:22 - Subjective Interval history: Interval changes: 06/30/2017 Pressors d/c'd prior to transfer to Hospitalist service Antibiotics d/c prior to hospitalist service Ra menchaca has large amout of sediment and fiant trace of blood Rate controlled Breathing compfortably Family concerned about chemo treatments and want Onc consult Family requesting to meet with Palliative service to establish goals of care 07/01/2017 Patient states he feels good Net neg 2.38 L fluid balance last 24 hrs (still net pos) Palliative care and Medical Oncology consults greatly appreciated 07/02/2017: Very tired but arrousable and following commands Diuresed another 2.3 L off in last 24 hrs. PT/OT to work with him today BG elevated again so SSI increased to high scale Assessment and Plan (1) Septic shock due to undetermined organism Resolved now All cultures are NTD No clear source of infection (2) Atrial flutter Rate controlle with amiodarone Dose to be decreased before d/c as outlined by cardiology Continue Eliquis Hgb stable (3) Elevated troponin I level This is likely due to demand ischemia with a history severe stenotic lesion of the aorta (4) H/O aortic valve replacement with porcine valve Now with stenotic gradient at high risk for hemodynamic insufficiency related to preload dependency (5) Peripheral edema: Bumex held at admission Restarted today at lower dose 0.5 mg IVP BID (6) Groin infection and sacral pressure sore (stage II) Wound care following (7) Bladder cancer (HG-Urethelial carcinoma). S/p 36 RTX treatments and currently undergoing OP chemotherapy . Last treatment June 11 per family. Family very concerned about plan for ongoing treatment. Apparently next treatment was scheduled this week per family. Page to oncology placed to clarify tratment. Medical oncology explained chemotherapy planned for patient and answered their questions and concerns (8) Goals of care, counseling/discussion: appreciate Palliative care assistance helping establish treatment goals which family agrees on (9) Severe debilitation: PT/OT to work with patient. Family unrealistic about taking patient home with in home PT versus rehab. - Constitutional Vitals: Temp Pulse Resp BP Pulse Ox 97.7 F 90 20 124/65 94 07/02/17 08:00 07/02/17 08:20 07/02/17 05:08 07/02/17 05:08 07/02/17 05:08 General appearance: Present: cooperative, A&O X 3, pleasant, no acute distress, answers questions appropriately Exam: Very lethargic and sleepy today - Head Head exam: Present: atraumatic, normocephalic - Eye Eye exam: Present: PERRL, conjuntiva pink, sclera anicteric Pupils: Present: PERRL - Neck Neck exam general surgery: Present: supple, trachea midline. Absent: lymphadenopathy - Respiratory Respiratory exam: Present: CTAB. Absent: accessory muscle use, rales, rhonchi, wheezes - Cardiovascular Cardiovascular exam: Present: RRR, +S1, +S2. Absent: diastolic murmur, gallop, rubs, systolic murmur - GI/Abdominal GI/Abdominal exam: Present: normal bowel sounds, soft, no peritoneal signs. Absent: distended, tenderness - Extremities Exam Extremities exam: Present: pedal edema, warm, radial pulses palpable and symmetrical. Absent: calf tenderness, cyanotic Additional comments: 3-4+ bilateral LE edema - Neurological Exam Neurological exam: Present: CN II-XII intact, oriented X3, no focal deficits. Absent: pronater drift, facial droop, speech deficit - Psychiatric Psychiatric exam: Present: normal affect, normal mood - Skin Skin exam: Present: dry, intact Internal Medicine: Result - Labs CBC & Chem 7: 07/02/17 03:35 07/02/17 03:35 Labs: Short CBC 07/02/17 Range/Units 03:35 WBC 12.5 H (4.3-11.1) K/mcL Hgb 9.0 L (12.9-16.9) g/dL Hct 28.2 L (37.5-50.1) % Plt Count 255 (140-400) K/mcL Neutrophils # 9.9 H (1.6-8.9) K/mcL BMP 07/02/17 03:35 Sodium 140 Potassium 4.2 Chloride 113 H Carbon Dioxide 21 L BUN 45 H Creatinine 0.98 Glucose 236 H Calcium 8.5 L Consult Discharge Plan - Plan Referrals: Mingo Wood, DO [Primary Care Provider] -
--- NOTE | 2017-07-02 11:41 | Palliative Progress Note ---
Date of Encounter: 07/02/17 Time of Encounter: 11:00 - Assessment and plan (1) Debility, unspecified Current Visit: Yes Status: Acute Assessment and plan: Patient unable to perform self care. Continued weakness present. PT/OT to start today. (2) Constipation Current Visit: Yes Status: Acute Assessment and plan: Patient had bowel movement today. Continue Dulcolax Suppository PRN. Qualifiers: Qualified Code(s): K59.00 - Constipation, unspecified (3) Altered mental status Current Visit: No Status: Acute Qualifiers: Altered mental status type: unspecified Qualified Code(s): R41.82 - Altered mental status, unspecified (4) Goals of care, counseling/discussion Current Visit: Yes Status: Acute Assessment and plan: Discussed plan of care at discharge; family wishes to take patient home with home health and PT. Family wishes to complete MPOA forms upon patient's awakening around 2 pm; will arrange to complete alongside SW. (5) CKD (chronic kidney disease) Current Visit: Yes Status: Chronic Qualifiers: Chronic kidney disease stage: stage 3 (moderate) Qualified Code(s): N18.3 - Chronic kidney disease, stage 3 (moderate) - Time Spent With Patient Total time spent is greater than 50% in coordination of care (as documented) at patient's floor/unit and/or counseling patient: - Subjective Interval history: Patient laying in bed, with eyes closed. Easily awakens with simple stimulation ; alert and oriented to person and place. Patient's daughter Gely and Son Jordan at bedside. No complaints at this time; denies anxiety, pain, and no difficulty with nausea or bowel movements. Family expresses concern that patient is not eating much, but correlates to disease process and feels that they will be able to get him to eat adequately at home after discharge. Patient 's family reports they are now ready to complete the MPOA paperwork this afternoon around 2pm when patient wakes up. Informed would come back at that time with SW to completed. - Constitutional Vitals: Abnormal lab results WBC 12.5 K/mcL (4.3-11.1) H 07/02/17 03:35 RBC 2.63 M/mcL (4.19-5.50) L 07/02/17 03:35 Hgb 9.0 g/dL (12.9-16.9) L 07/02/17 03:35 Hct 28.2 % (37.5-50.1) L 07/02/17 03:35 MCV 107.2 fL (83.0-100.0) H 07/02/17 03:35 MCH 34.2 pg (28.0-33.3) H 07/02/17 03:35 RDW 16.7 % (11.5-14.5) H 07/02/17 03:35 Neutrophils # 9.9 K/mcL (1.6-8.9) H 07/02/17 03:35 Nucleated RBCs/100 WBC 1.0 /100 WBC (0) H 07/02/17 03:35 Chloride 113 mEq/L (98-107) H 07/02/17 03:35 Carbon Dioxide 21 mEq/L (23-29) L 07/02/17 03:35 BUN 45 mg/dL (8-23) H 07/02/17 03:35 BUN/Creatinine Ratio 46 (6-26) H 07/02/17 03:35 Glucose 236 mg/dL (70-105) H 07/02/17 03:35 POC Glucose 284 (58-89) H 07/02/17 11:32 Calculated Osmolality 309 (280-300) H 07/02/17 03:35 Calcium 8.5 mg/dL (8.6-10.3) L 07/02/17 03:35 Direct Bilirubin 0.3 mg/dL (0.0-0.2) H 06/27/17 03:40 AST 75 Units/L (13-39) H 07/01/17 03:37 ALT 93 Units/L (7-52) H 07/01/17 03:37 Troponin I 2.37 ng/mL (< 0.04) H* 06/27/17 06:48 B-Natriuretic Peptide 351 pg/mL (Less than 100) H 06/26/17 12:03 Serum Total Protein 5.7 g/dL (6.4-8.9) L 07/01/17 03:37 Albumin 2.4 g/dL (3.5-5.7) L 07/01/17 03:37 Albumin/Globulin Ratio 0.7 (1.1-2.2) L 07/01/17 03:37 Urine Clarity Turbid (Clear) A 06/30/17 12:00 Ur Specific Cel[place] 1.026 (1.010-1.025) H 06/30/17 12:00 Urine Protein 30 mg/dL (Neg-Trace) H 06/30/17 12:00 Urine Glucose (UA) >=1000 mg/dL (Normal) H 06/30/17 12:00 Urine Blood Large (Negative) H 06/30/17 12:00 Ur Leukocyte Esterase Large (Negative) H 06/30/17 12:00 Urine Microscopic WBC TNTC per hpf (0-3) H 06/30/17 12:00 Ur Squamous Epith Cells Many per lpf (None-Few) H 06/30/17 12:00 Ur Transition Epith Cell Moderate per hpf (None-Few) H 06/26/17 12:20 Urine Yeast Many per hpf (None Seen) H 06/30/17 12:00 - Head Head exam: Present: normal inspection - Eye Eye exam: Present: normal appearance. Absent: periorbital swelling, periorbital tenderness - ENT ENT exam: Present: mucous membranes dry - Neck Neck exam: Present: full ROM, normal inspection - Respiratory Respiratory exam: Present: CTAB. Absent: accessory muscle use - Cardiovascular Cardiovascular exam: Present: irregular rhythm - GI/Abdominal GI/Abdominal exam: Present: normal bowel sounds, soft. Absent: tenderness - Neurological Exam Neurological exam: Present: alert, oriented X3, strengths equal and symetr throughout - Psychiatric Psychiatric exam: Present: normal affect, normal mood Palliative Quality Palliative Quality: Screen for Code Status: Yes, Screen for Goals of Care: Yes, Screen for Pain: Yes (No pain medicine started.), If Pain Regimen Started, Initiate Bowel Regimen: Yes, Screen for Nausea/Vomitting: Yes - Labs CBC & Chem 7: 07/02/17 03:35 07/02/17 03:35 Labs: Laboratory Results - last 24 hr 07/01/17 07/01/17 07/01/17 11:39 16:28 20:44 WBC RBC Hgb Hct MCV MCH MCHC RDW Plt Count MPV Immature Gran % Seg Neutrophils % Lymphocytes % Monocytes % Eosinophils % Basophils % Neutrophils # Lymphocytes # Monocytes # Eosinophils # Basophils # Nucleated RBCs/100 WBC Sodium Potassium Chloride Carbon Dioxide BUN Creatinine Est GFR ( Amer) Est GFR (Non-Af Amer) BUN/Creatinine Ratio Glucose POC Glucose 247 H 236 H 195 H Calculated Osmolality Calcium 07/02/17 07/02/17 07/02/17 03:35 03:35 07:44 WBC 12.5 H RBC 2.63 L Hgb 9.0 L Hct 28.2 L MCV 107.2 H MCH 34.2 H MCHC 31.9 RDW 16.7 H Plt Count 255 MPV 10.2 Immature Gran % 2.4 Seg Neutrophils % 79.1 Lymphocytes % 10.7 Monocytes % 5.5 Eosinophils % 1.8 Basophils % 0.5 Neutrophils # 9.9 H Lymphocytes # 1.3 Monocytes # 0.7 Eosinophils # 0.2 Basophils # 0.1 Nucleated RBCs/100 WBC 1.0 H Sodium 140 Potassium 4.2 Chloride 113 H Carbon Dioxide 21 L BUN 45 H Creatinine 0.98 Est GFR ( Amer) > 60 Est GFR (Non-Af Amer) > 60 BUN/Creatinine Ratio 46 H Glucose 236 H POC Glucose 223 H Calculated Osmolality 309 H Calcium 8.5 L 07/02/17 11:32 WBC RBC Hgb Hct MCV MCH MCHC RDW Plt Count MPV Immature Gran % Seg Neutrophils % Lymphocytes % Monocytes % Eosinophils % Basophils % Neutrophils # Lymphocytes # Monocytes # Eosinophils # Basophils # Nucleated RBCs/100 WBC Sodium Potassium Chloride Carbon Dioxide BUN Creatinine Est GFR ( Amer) Est GFR (Non-Af Amer) BUN/Creatinine Ratio Glucose POC Glucose 284 H Calculated Osmolality Calcium Consult Discharge Plan - Plan Referrals: Mingo Wood DO [Primary Care Provider] -
[2017-07-03] MEDS: Insulin LISPRO 300 UNITS/3 ML VIAL SQ SCH ×5 (00:58→22:19)
[2017-07-03 03:13] LABS: Basophils # 0.1 K/mcL (0.0-0.2); Basophils % 0.7 %; Eosinophils # 0.4 K/mcL (0.0-0.6); Eosinophils % 4.2 %; Hematocrit 27.9 % (37.5-50.1); Hemoglobin 9.2 g/dL (12.9-16.9); Immature Granulocytes % 4.5 % (0-4); Lymphocytes # 1.4 K/mcL (0.6-4.6); Lymphocytes % 13.8 %; Mean Corpuscular Hemoglobin 34.7 pg (28.0-33.3); Mean Corpuscular Volume 105.3 fL (83.0-100.0); Mean Platelet Volume 10.3 fL (9.4-12.4); Monocytes # 0.7 K/mcL (0.0-1.3); Monocytes % 6.7 %; Platelet Count 226 K/mcL (140-400); Red Blood Count 2.65 M/mcL (4.19-5.50); Red Cell Distribution Width 16.4 % (11.5-14.5); Segmented Neutrophils % 70.1 %
[2017-07-03 03:31] LABS: BUN/Creatinine Ratio 44 (6-26); Blood Urea Nitrogen 41 mg/dL (8-23); Calcium 8.4 mg/dL (8.6-10.3); Carbon Dioxide 24 mEq/L (23-29); Chloride 112 mEq/L (98-107); Glucose 167 mg/dL (70-105); Osmolality,Calculated 306 (280-300); Potassium 3.9 mEq/L (3.5-5.1); Sodium 141 mEq/L (136-145); eGFR For African Americans > 60 (> 60); eGFR For Non-African Americans > 60 (> 60)
[2017-07-03] MEDS: Ipratropium/Albuterol Neb 3 ML IH SCH ×4 (03:47→22:30)
[2017-07-03] MEDS: Apixaban 2.5 MG TABLET PO SCH ×2 (08:03→22:18)
[2017-07-03] MEDS: Bumetanide 1 MG/4 ML VIAL IVP SCH ×2 (08:03→16:44)
[2017-07-03] MEDS: *HR* Amiodarone 200 MG TABLET PO SCH ×2 (08:03→22:18)
[2017-07-03] MEDS: Miconazole w/zinc oxide&karaya 92 APPL/92 GM TUBE TP SCH ×2 (08:11→22:18)
[2017-07-03] MEDS: Nystatin POWDER 30 GM BOTTLE TP SCH ×3 (08:11→22:18)
--- NOTE | 2017-07-03 08:31 | Internal Med Progress Note ---
Date of Encounter: 07/03/17 Time of Encounter: 08:10 - Subjective Interval history: Interval changes: 06/30/2017 Pressors d/c'd prior to transfer to Hospitalist service Antibiotics d/c prior to hospitalist service Ra menchaca has large amout of sediment and fiant trace of blood Rate controlled Breathing compfortably Family concerned about chemo treatments and want Onc consult Family requesting to meet with Palliative service to establish goals of care 07/01/2017 Patient states he feels good Net neg 2.38 L fluid balance last 24 hrs (still net pos) Palliative care and Medical Oncology consults greatly appreciated 07/02/2017: Very tired but arrousable and following commands Diuresed another 2.3 L off in last 24 hrs. PT/OT to work with him today BG elevated again so SSI increased to high scale 07/03/2017: Much more alert today Son at bedside states he slept well after being moved out of ICU No chest pain/sob Hgb stable Still rate controlled BG still high but Insulin dosing increased last night Assessment and Plan (1) Septic shock due to undetermined organism Resolved now All cultures are NTD No clear source of infection Very fluid overloaded from initial sepsis related fluid resuscitation (2) Atrial flutter Rate controlled with amiodarone Dose to be decreased before d/c as outlined by cardiology Continue Eliquis Hgb stable (3) Elevated troponin I level This is likely due to demand ischemia with a history severe stenotic lesion of the aorta (4) H/O aortic valve replacement with porcine valve Now with stenotic gradient at high risk for hemodynamic insufficiency related to preload dependency (5) Peripheral edema: Bumex held at admission Restarted today at lower dose 0.5 mg IVP BID and increased to 1 mg BID yesterday Albumin 25 mg IVPB Q8 hrs added (6) Groin infection and sacral pressure sore (stage II) Wound care following (7) Bladder cancer (HG-Urethelial carcinoma). S/p 36 RTX treatments and currently undergoing OP chemotherapy . Last treatment June 11 per family. Family very concerned about plan for ongoing treatment. Apparently next treatment was scheduled this week per family. Page to oncology placed to clarify tratment. Medical oncology explained chemotherapy planned for patient and answered their questions and concerns (8) Goals of care, counseling/discussion: appreciate Palliative care assistance helping establish treatment goals which family agrees on (9) Severe debilitation: PT/OT to work with patient. Expressed concerns about taking patient home with PT versus rehab stay. - Constitutional Vitals: Temp Pulse Resp BP Pulse Ox 97.6 F 77 18 152/64 97 07/03/17 07:24 07/03/17 07:24 07/03/17 07:24 07/03/17 07:24 07/03/17 07:24 General appearance: Present: cooperative, A&O X 3, pleasant, no acute distress, answers questions appropriately Exam: More alert today but still very weak - Head Head exam: Present: atraumatic, normocephalic - Eye Eye exam: Present: PERRL, conjuntiva pink, sclera anicteric Pupils: Present: PERRL - Neck Neck exam general surgery: Present: supple, trachea midline. Absent: lymphadenopathy - Respiratory Respiratory exam: Present: CTAB. Absent: accessory muscle use, rales, rhonchi, wheezes - Cardiovascular Cardiovascular exam: Present: irregular rhythm, +S1, +S2. Absent: diastolic murmur, gallop, rubs, systolic murmur - GI/Abdominal GI/Abdominal exam: Present: normal bowel sounds, soft, no peritoneal signs. Absent: distended, firm, guarding, rebound, rigid, tenderness - Extremities Exam Extremities exam: Present: warm, radial pulses palpable and symmetrical. Absent : calf tenderness, cyanotic, pedal edema - Neurological Exam Neurological exam: Present: CN II-XII intact, oriented X3, no focal deficits. Absent: pronater drift, facial droop, speech deficit - Skin Skin exam: Present: dry, intact Additional comments: Sacral wounds Groin infection Internal Medicine: Result - Labs CBC & Chem 7: 07/03/17 02:53 07/03/17 02:53 Labs: Short CBC 07/03/17 Range/Units 02:53 WBC 9.9 (4.3-11.1) K/mcL Hgb 9.2 L (12.9-16.9) g/dL Hct 27.9 L (37.5-50.1) % Plt Count 226 (140-400) K/mcL Neutrophils # 7.0 (1.6-8.9) K/mcL BMP 07/03/17 02:53 Sodium 141 Potassium 3.9 Chloride 112 H Carbon Dioxide 24 BUN 41 H Creatinine 0.94 Glucose 167 H Calcium 8.4 L Consult Discharge Plan - Plan Referrals: Mingo Wood DO [Primary Care Provider] -
--- NOTE | 2017-07-03 09:22 | Event Note ---
Date of Encounter: 07/03/17 Time of Encounter: 09:21 CODE STATUS is established, of care have been discussed, and the patient now has MPOA paperwork done. Palliative we will now sign off please feel free to reconsult we can help in any way.
[2017-07-03] MEDS: Albumin 25% 25gram/100mL 25 GM/100 ML IV.SOLN IVPB SCH (16:45)
[2017-07-03] MEDS: Acetaminophen 325 MG TABLET PO PRN (19:42)
[2017-07-04] MEDS: Albumin 25% 25gram/100mL 25 GM/100 ML IV.SOLN IVPB SCH ×4 (00:39→23:57)
[2017-07-04] MEDS: Ipratropium/Albuterol Neb 3 ML IH SCH ×4 (04:09→21:19)
[2017-07-04 05:45] LABS: Basophils # 0.1 K/mcL (0.0-0.2); Basophils % 0.7 %; Eosinophils # 0.4 K/mcL (0.0-0.6); Eosinophils % 5.2 %; Hematocrit 25.8 % (37.5-50.1); Hemoglobin 8.3 g/dL (12.9-16.9); Immature Granulocytes % 4.9 % (0-4); Lymphocytes # 1.3 K/mcL (0.6-4.6); Lymphocytes % 17.5 %; Mean Corpuscular HGB Conc 32.2 g/dL (31.6-35.5); Mean Corpuscular Volume 108.9 fL (83.0-100.0); Mean Platelet Volume 10.4 fL (9.4-12.4); Monocytes # 0.5 K/mcL (0.0-1.3); Monocytes % 7.1 %; Neutrophils # 4.6 K/mcL (1.6-8.9); Nucleated Red Blood Cells 0.8 /100 WBC (0); Platelet Count 175 K/mcL (140-400); Red Blood Count 2.37 M/mcL (4.19-5.50); Segmented Neutrophils % 64.6 %
[2017-07-04 06:09] LABS: BUN/Creatinine Ratio 41 (6-26); Blood Urea Nitrogen 38 mg/dL (8-23); Calcium 8.6 mg/dL (8.6-10.3); Carbon Dioxide 26 mEq/L (23-29); Chloride 109 mEq/L (98-107); Glucose 215 mg/dL (70-105); Osmolality,Calculated 308 (280-300); Sodium 141 mEq/L (136-145); eGFR For African Americans > 60 (> 60); eGFR For Non-African Americans > 60 (> 60)
[2017-07-04] MEDS: *HR* Amiodarone 200 MG TABLET PO SCH ×2 (08:25→20:35)
[2017-07-04] MEDS: Apixaban 2.5 MG TABLET PO SCH ×2 (08:25→20:35)
[2017-07-04] MEDS: Bumetanide 1 MG/4 ML VIAL IVP SCH ×2 (08:25→15:50)
[2017-07-04] MEDS: Insulin LISPRO 300 UNITS/3 ML VIAL SQ SCH ×4 (08:26→23:37)
[2017-07-04] MEDS: Miconazole w/zinc oxide&karaya 92 APPL/92 GM TUBE TP SCH ×2 (08:27→23:41)
[2017-07-04] MEDS: Nystatin POWDER 30 GM BOTTLE TP SCH ×3 (08:27→23:40)
--- NOTE | 2017-07-04 13:27 | Internal Med Progress Note ---
Date of Encounter: 07/04/17 Time of Encounter: 13:01 - Subjective Interval history: Interval changes: 06/30/2017 Pressors d/c'd prior to transfer to Hospitalist service Antibiotics d/c prior to hospitalist service Ra menchaca has large amout of sediment and fiant trace of blood Rate controlled Breathing compfortably Family concerned about chemo treatments and want Onc consult Family requesting to meet with Palliative service to establish goals of care 07/01/2017 Patient states he feels good Net neg 2.38 L fluid balance last 24 hrs (still net pos) Palliative care and Medical Oncology consults greatly appreciated 07/02/2017: Very tired but arrousable and following commands Diuresed another 2.3 L off in last 24 hrs. PT/OT to work with him today BG elevated again so SSI increased to high scale 07/03/2017: Much more alert today Son at bedside states he slept well after being moved out of ICU No chest pain/sob Hgb stable Still rate controlled BG still high but Insulin dosing increased last night 07/04/2017: Still working with PT/OT Remains rate controlled Hgb dropped (9.2-->8.3) Recheck in am No signs of bleeding Good diuresis (improved since adding albumin) Assessment and Plan (1) Septic shock due to undetermined organism Resolved now All cultures are NTD No clear source of infection Very fluid overloaded from initial sepsis related fluid resuscitation (2) Atrial flutter Rate controlled with amiodarone Dose to be decreased before d/c as outlined by cardiology Continue Eliquis Hgb stable (3) Elevated troponin I level This is likely due to demand ischemia with a history severe stenotic lesion of the aorta (4) H/O aortic valve replacement with porcine valve Now with stenotic gradient at high risk for hemodynamic insufficiency related to preload dependency (5) Peripheral edema: Bumex held at admission Restarted today at lower dose 0.5 mg IVP BID and increased to 1 mg BID yesterday Albumin 25 mg IVPB Q8 hrs added (6) Groin infection and sacral pressure sore (stage II) Wound care following (7) Bladder cancer (HG-Urethelial carcinoma). S/p 36 RTX treatments and currently undergoing OP chemotherapy . Last treatment June 11 per family. Family very concerned about plan for ongoing treatment. Apparently next treatment was scheduled this week per family. Page to oncology placed to clarify tratment. Medical oncology explained chemotherapy planned for patient and answered their questions and concerns (8) Goals of care, counseling/discussion: appreciate Palliative care assistance helping establish treatment goals which family agrees on (9) Severe debilitation: PT/OT to work with patient. Expressed concerns about taking patient home with PT versus rehab stay. - Constitutional Vitals: Temp Pulse Resp BP Pulse Ox 97.9 F 77 14 136/63 94 07/04/17 11:17 07/04/17 11:17 07/04/17 11:17 07/04/17 11:17 07/04/17 11:17 General appearance: Present: cooperative, A&O X 3, pleasant, no acute distress, answers questions appropriately - Head Head exam: Present: atraumatic, normocephalic - Eye Eye exam: Present: PERRL, conjuntiva pink, sclera anicteric Pupils: Present: PERRL - Neck Neck exam general surgery: Present: supple, trachea midline. Absent: lymphadenopathy - Respiratory Respiratory exam: Present: CTAB. Absent: accessory muscle use, rales, rhonchi, wheezes - Cardiovascular Cardiovascular exam: Present: RRR, +S1, +S2. Absent: diastolic murmur, gallop, rubs, systolic murmur - GI/Abdominal GI/Abdominal exam: Present: normal bowel sounds, soft, no peritoneal signs. Absent: distended, tenderness - Extremities Exam Extremities exam: Present: warm, radial pulses palpable and symmetrical. Absent : calf tenderness, cyanotic, pedal edema - Neurological Exam Neurological exam: Present: CN II-XII intact, oriented X3, no focal deficits. Absent: pronater drift, facial droop, speech deficit - Skin Skin exam: Present: dry, warm Internal Medicine: Result - Labs CBC & Chem 7: 07/04/17 05:29 07/04/17 05:29 Labs: Short CBC 07/04/17 Range/Units 05:29 WBC 7.1 (4.3-11.1) K/mcL Hgb 8.3 L (12.9-16.9) g/dL Hct 25.8 L (37.5-50.1) % Plt Count 175 (140-400) K/mcL Neutrophils # 4.6 (1.6-8.9) K/mcL BMP 07/04/17 05:29 Sodium 141 Potassium 4.0 Chloride 109 H Carbon Dioxide 26 BUN 38 H Creatinine 0.93 Glucose 215 H Calcium 8.6 Consult Discharge Plan - Plan Referrals: Mingo Wood, [Primary Care Provider] -
[2017-07-05] MEDS: Ipratropium/Albuterol Neb 3 ML IH SCH ×4 (03:49→22:16)
[2017-07-05 06:19] LABS: Basophils % 0.6 %; Eosinophils # 0.2 K/mcL (0.0-0.6); Eosinophils % 2.8 %; Hematocrit 26.1 % (37.5-50.1); Hemoglobin 8.4 g/dL (12.9-16.9); Immature Granulocytes % 2.1 % (0-4); Lymphocytes % 13.8 %; Mean Corpuscular HGB Conc 32.2 g/dL (31.6-35.5); Mean Corpuscular Hemoglobin 34.7 pg (28.0-33.3); Mean Corpuscular Volume 107.9 fL (83.0-100.0); Mean Platelet Volume 10.9 fL (9.4-12.4); Monocytes # 0.5 K/mcL (0.0-1.3); Monocytes % 7.1 %; Neutrophils # 5.2 K/mcL (1.6-8.9); Nucleated Red Blood Cells 0.4 /100 WBC (0); Platelet Count 169 K/mcL (140-400); Red Blood Count 2.42 M/mcL (4.19-5.50); Segmented Neutrophils % 73.6 %
[2017-07-05 06:36] LABS: Alanine Aminotransferase 63 Units/L (7-52); Albumin 3.2 g/dL (3.5-5.7); Albumin/Globulin Ratio 1.2 (1.1-2.2); Alkaline Phosphatase 86 Units/L (34-104); Aspartate Amino Transferase 66 Units/L (13-39); BUN/Creatinine Ratio 33 (6-26); Bilirubin,Total 0.9 mg/dL (0.3-1.0); Blood Urea Nitrogen 32 mg/dL (8-23); Calcium 8.9 mg/dL (8.6-10.3); Carbon Dioxide 28 mEq/L (23-29); Chloride 108 mEq/L (98-107); Globulin 2.6 g/dL (2.4-3.5); Glucose 175 mg/dL (70-105); Osmolality,Calculated 301 (280-300); Potassium 3.6 mEq/L (3.5-5.1); Sodium 140 mEq/L (136-145); Total Protein 5.8 g/dL (6.4-8.9); eGFR For African Americans > 60 (> 60); eGFR For Non-African Americans > 60 (> 60)
[2017-07-05] MEDS: Acetaminophen 325 MG TABLET PO PRN (08:25)
[2017-07-05] MEDS: Bumetanide 1 MG/4 ML VIAL IVP SCH ×2 (08:26→16:55)
[2017-07-05] MEDS: Insulin LISPRO 300 UNITS/3 ML VIAL SQ SCH ×4 (08:26→20:45)
[2017-07-05] MEDS: Apixaban 2.5 MG TABLET PO SCH ×2 (08:26→20:45)
[2017-07-05] MEDS: Albumin 25% 25gram/100mL 25 GM/100 ML IV.SOLN IVPB SCH ×2 (08:26→17:10)
[2017-07-05] MEDS: Nystatin POWDER 30 GM BOTTLE TP SCH ×3 (08:27→20:47)
[2017-07-05] MEDS: Miconazole w/zinc oxide&karaya 92 APPL/92 GM TUBE TP SCH ×2 (08:27→20:47)
--- NOTE | 2017-07-05 15:36 | Internal Med Progress Note ---
Date of Encounter: 07/05/17 Time of Encounter: 15:16 - Subjective Interval history: Interval changes: 06/30/2017 Pressors d/c'd prior to transfer to Hospitalist service Antibiotics d/c prior to hospitalist service Ra menchaca has large amout of sediment and fiant trace of blood Rate controlled Breathing compfortably Family concerned about chemo treatments and want Onc consult Family requesting to meet with Palliative service to establish goals of care 07/01/2017 Patient states he feels good Net neg 2.38 L fluid balance last 24 hrs (still net pos) Palliative care and Medical Oncology consults greatly appreciated 07/02/2017: Very tired but arrousable and following commands Diuresed another 2.3 L off in last 24 hrs. PT/OT to work with him today BG elevated again so SSI increased to high scale 07/03/2017: Much more alert today Son at bedside states he slept well after being moved out of ICU No chest pain/sob Hgb stable Still rate controlled BG still high but Insulin dosing increased last night 07/04/2017: Still working with PT/OT Remains rate controlled Hgb dropped (9.2-->8.3) Recheck in am No signs of bleeding Good diuresis (improved since adding albumin) 07/06/2015 Continue diuresis and albumin Edema improving Assessment and Plan (1) Septic shock due to undetermined organism Resolved now All cultures are NTD No clear source of infection Very fluid overloaded from initial sepsis related fluid resuscitation (2) Atrial flutter Rate controlled with amiodarone Dose to be decreased before d/c as outlined by cardiology Continue Eliquis Hgb stable (3) Elevated troponin I level This is likely due to demand ischemia with a history severe stenotic lesion of the aorta (4) H/O aortic valve replacement with porcine valve Now with stenotic gradient at high risk for hemodynamic insufficiency related to preload dependency (5) Peripheral edema: Bumex held at admission Restarted today at lower dose 0.5 mg IVP BID and increased to 1 mg BID yesterday Albumin 25 mg IVPB Q8 hrs added (6) Groin infection and sacral pressure sore (stage II) Wound care following (7) Bladder cancer (HG-Urethelial carcinoma). S/p 36 RTX treatments and currently undergoing OP chemotherapy . Last treatment June 11 per family. Family very concerned about plan for ongoing treatment. Apparently next treatment was scheduled this week per family. Page to oncology placed to clarify tratment. Medical oncology explained chemotherapy planned for patient and answered their questions and concerns (8) Goals of care, counseling/discussion: appreciate Palliative care assistance helping establish treatment goals which family agrees on (9) Severe debilitation: PT/OT to work with patient. Expressed concerns about taking patient home with PT versus rehab stay. (10)Urinary retention: He currently has a folley catheter placed by urology. Urology will be called tomorrow to determine how long it should be left in or if we can remove it prior to discharge. - Constitutional Vitals: Temp Pulse Resp BP Pulse Ox 99.3 F 87 16 99/54 98 07/05/17 12:02 07/05/17 12:02 07/05/17 12:02 07/05/17 12:02 07/05/17 12:02 General appearance: Present: cooperative, A&O X 3, pleasant, no acute distress, answers questions appropriately - Head Head exam: Present: atraumatic, normocephalic - Eye Eye exam: Present: PERRL, conjuntiva pink, sclera anicteric Pupils: Present: PERRL - Neck Neck exam general surgery: Present: supple, trachea midline. Absent: lymphadenopathy - Respiratory Respiratory exam: Present: CTAB. Absent: accessory muscle use, rales, rhonchi, wheezes - Cardiovascular Cardiovascular exam: Present: RRR, +S1, +S2. Absent: diastolic murmur, gallop, rubs, systolic murmur - GI/Abdominal GI/Abdominal exam: Present: normal bowel sounds, soft, no peritoneal signs. Absent: distended, tenderness - Extremities Exam Extremities exam: Present: warm, radial pulses palpable and symmetrical. Absent : calf tenderness, cyanotic, pedal edema - Neurological Exam Neurological exam: Present: CN II-XII intact, oriented X3, no focal deficits. Absent: pronater drift, facial droop, speech deficit - Skin Skin exam: Present: dry, intact Internal Medicine: Result - Labs CBC & Chem 7: 07/05/17 05:22 07/05/17 05:22 Labs: Short CBC 07/05/17 Range/Units 05:22 WBC 7.0 (4.3-11.1) K/mcL Hgb 8.4 L (12.9-16.9) g/dL Hct 26.1 L (37.5-50.1) % Plt Count 169 (140-400) K/mcL Neutrophils # 5.2 (1.6-8.9) K/mcL BMP 07/05/17 05:22 Sodium 140 Potassium 3.6 Chloride 108 H Carbon Dioxide 28 BUN 32 H Creatinine 0.98 Glucose 175 H Calcium 8.9 Liver Function 07/05/17 Range/Units 05:22 Total Bilirubin 0.9 (0.3-1.0) mg/dL AST 66 H (13-39) Units/L ALT 63 H (7-52) Units/L Alkaline Phosphatase 86 (34-104) Units/L Albumin 3.2 L (3.5-5.7) g/dL Consult Discharge Plan - Plan Referrals: Mingo Wood DO [Primary Care Provider] -
[2017-07-06] MEDS: Albumin 25% 25gram/100mL 25 GM/100 ML IV.SOLN IVPB SCH ×3 (00:49→17:23)
[2017-07-06] MEDS: Ipratropium/Albuterol Neb 3 ML IH SCH ×4 (03:56→21:42)
[2017-07-06 05:25] LABS: Basophils % 0.6 %; Eosinophils # 0.2 K/mcL (0.0-0.6); Eosinophils % 3.3 %; Hematocrit 25.1 % (37.5-50.1); Immature Granulocytes % 1.4 % (0-4); Lymphocytes # 1.2 K/mcL (0.6-4.6); Lymphocytes % 17.1 %; Mean Corpuscular HGB Conc 31.9 g/dL (31.6-35.5); Mean Corpuscular Hemoglobin 34.6 pg (28.0-33.3); Mean Corpuscular Volume 108.7 fL (83.0-100.0); Mean Platelet Volume 10.7 fL (9.4-12.4); Monocytes # 0.4 K/mcL (0.0-1.3); Monocytes % 5.4 %; Neutrophils # 5.2 K/mcL (1.6-8.9); Platelet Count 145 K/mcL (140-400); Red Blood Count 2.31 M/mcL (4.19-5.50); Red Cell Distribution Width 17.2 % (11.5-14.5); Segmented Neutrophils % 72.2 %
[2017-07-06 05:50] LABS: Alanine Aminotransferase 54 Units/L (7-52); Albumin 3.1 g/dL (3.5-5.7); Albumin/Globulin Ratio 1.1 (1.1-2.2); Alkaline Phosphatase 78 Units/L (34-104); Aspartate Amino Transferase 59 Units/L (13-39); BUN/Creatinine Ratio 33 (6-26); Blood Urea Nitrogen 31 mg/dL (8-23); Carbon Dioxide 28 mEq/L (23-29); Chloride 106 mEq/L (98-107); Glucose 190 mg/dL (70-105); Osmolality,Calculated 306 (280-300); Potassium 3.9 mEq/L (3.5-5.1); Sodium 142 mEq/L (136-145); Total Protein 5.8 g/dL (6.4-8.9); eGFR For African Americans > 60 (> 60); eGFR For Non-African Americans > 60 (> 60)
[2017-07-06 05:51] LABS: Globulin 2.7 g/dL (2.4-3.5)
[2017-07-06] MEDS: Bumetanide 1 MG/4 ML VIAL IVP SCH ×2 (08:14→17:23)
[2017-07-06] MEDS: Apixaban 2.5 MG TABLET PO SCH ×2 (08:14→20:20)
[2017-07-06] MEDS: Insulin LISPRO 300 UNITS/3 ML VIAL SQ SCH ×4 (08:15→20:20)
[2017-07-06] MEDS: Nystatin POWDER 30 GM BOTTLE TP SCH ×3 (08:30→20:20)
[2017-07-06] MEDS: Acetaminophen 325 MG TABLET PO PRN ×2 (10:18→20:19)
--- NOTE | 2017-07-06 11:18 | Internal Med Progress Note ---
Date of Encounter: 07/06/17 Time of Encounter: 11:16 - Subjective Interval history: Interval changes: 06/30/2017 Pressors d/c'd prior to transfer to Hospitalist service Antibiotics d/c prior to hospitalist service Knapp cath has large amout of sediment and fiant trace of blood Rate controlled Breathing compfortably Family concerned about chemo treatments and want Onc consult Family requesting to meet with Palliative service to establish goals of care 07/01/2017 Patient states he feels good Net neg 2.38 L fluid balance last 24 hrs (still net pos) Palliative care and Medical Oncology consults greatly appreciated 07/02/2017: Very tired but arrousable and following commands Diuresed another 2.3 L off in last 24 hrs. PT/OT to work with him today BG elevated again so SSI increased to high scale 07/03/2017: Much more alert today Son at bedside states he slept well after being moved out of ICU No chest pain/sob Hgb stable Still rate controlled BG still high but Insulin dosing increased last night 07/04/2017: Still working with PT/OT Remains rate controlled Hgb dropped (9.2-->8.3) Recheck in am No signs of bleeding Good diuresis (improved since adding albumin) 07/06/2015 Continue diuresis and albumin Edema improving 07/07/2015: Very lethargic bur arousable Urology consulted about Knapp removal prior to discharge Assessment and Plan (1) Septic shock due to undetermined organism Resolved now All cultures are NTD No clear source of infection Very fluid overloaded from initial sepsis related fluid resuscitation (2) Atrial flutter Rate controlled with amiodarone Dose to be decreased before d/c as outlined by cardiology Continue Eliquis Hgb stable (3) Elevated troponin I level This is likely due to demand ischemia with a history severe stenotic lesion of the aorta (4) H/O aortic valve replacement with porcine valve Now with stenotic gradient at high risk for hemodynamic insufficiency related to preload dependency (5) Peripheral edema: Bumex held at admission Restarted today at lower dose 0.5 mg IVP BID and increased to 1 mg BID yesterday Albumin 25 mg IVPB Q8 hrs added (6) Groin infection and sacral pressure sore (stage II) Wound care following (7) Bladder cancer (HG-Urethelial carcinoma). S/p 36 RTX treatments and currently undergoing OP chemotherapy . Last treatment June 11 per family. Family very concerned about plan for ongoing treatment. Apparently next treatment was scheduled this week per family. Page to oncology placed to clarify tratment. Medical oncology explained chemotherapy planned for patient and answered their questions and concerns (8) Goals of care, counseling/discussion: appreciate Palliative care assistance helping establish treatment goals which family agrees on (9) Severe debilitation: PT/OT to work with patient. Expressed concerns about taking patient home with PT versus rehab stay. (10)Urinary retention: He currently has a folley catheter placed by urology. Urology will be called tomorrow to determine how long it should be left in or if we can remove it prior to discharge. - Constitutional Vitals: Temp Pulse Resp BP Pulse Ox 99.5 F 80 16 127/53 98 07/06/17 10:17 07/06/17 08:09 07/06/17 10:15 07/06/17 08:09 07/06/17 10:15 General appearance: Present: cooperative, A&O X 3, pleasant, no acute distress, answers questions appropriately Internal Medicine: Result - Labs CBC & Chem 7: 07/06/17 05:03 07/06/17 05:03 Labs: Short CBC 07/06/17 Range/Units 05:03 WBC 7.2 (4.3-11.1) K/mcL Hgb 8.0 L (12.9-16.9) g/dL Hct 25.1 L (37.5-50.1) % Plt Count 145 (140-400) K/mcL Neutrophils # 5.2 (1.6-8.9) K/mcL BMP 07/06/17 05:03 Sodium 142 Potassium 3.9 Chloride 106 Carbon Dioxide 28 BUN 31 H Creatinine 0.94 Glucose 190 H Calcium 9.0 Liver Function 07/06/17 Range/Units 05:03 Total Bilirubin 1.0 (0.3-1.0) mg/dL AST 59 H (13-39) Units/L ALT 54 H (7-52) Units/L Alkaline Phosphatase 78 (34-104) Units/L Albumin 3.1 L (3.5-5.7) g/dL Consult Discharge Plan - Plan Referrals: Mingo Wood DO [Primary Care Provider] -
--- NOTE | 2017-07-06 13:18 | Urology Progress Note ---
Date of Encounter: 07/06/17 Time of Encounter: 13:16 - Assessment and Plan (1) Bladder cancer Current Visit: Yes Status: Chronic Assessment and plan: we discussed options for his indwelling cath. at this point we wishes to leave in place as it provides improved QOL. family states they are meeting with Hospice. cath needs changed [id number]. no followup needed at this time unless new issues. Qualifiers: Bladder location: unspecified site Qualified Code(s): C67.9 - Malignant neoplasm of bladder, unspecified Progress Note Narrative: feels debilitated. cath in place Objective Initial Vital Signs Temp Pulse Resp BP Pulse Ox 97.6 F 94 20 108/60 100 06/26/17 11:05 06/26/17 11:05 06/26/17 11:05 06/26/17 11:05 06/26/17 11:05 - General physical appearance Present: chronically ill - Additional Exam gupta with clear urine. - Labs 07/06/17 05:03 07/06/17 05:03 Diabetes panel 07/06/17 Range/Units 05:03 Sodium 142 (136-145) mEq/L Potassium 3.9 (3.5-5.1) mEq/L Chloride 106 (98-107) mEq/L Carbon Dioxide 28 (23-29) mEq/L BUN 31 H (8-23) mg/dL Creatinine 0.94 (0.70-1.30) mg/dL Glucose 190 H (70-105) mg/dL Calcium 9.0 (8.6-10.3) mg/dL AST 59 H (13-39) Units/L ALT 54 H (7-52) Units/L Alkaline Phosphatase 78 (34-104) Units/L Albumin 3.1 L (3.5-5.7) g/dL Calcium panel 07/06/17 Range/Units 05:03 Calcium 9.0 (8.6-10.3) mg/dL Albumin 3.1 L (3.5-5.7) g/dL Pituitary panel 07/06/17 Range/Units 05:03 Sodium 142 (136-145) mEq/L Potassium 3.9 (3.5-5.1) mEq/L Chloride 106 (98-107) mEq/L Carbon Dioxide 28 (23-29) mEq/L BUN 31 H (8-23) mg/dL Creatinine 0.94 (0.70-1.30) mg/dL Glucose 190 H (70-105) mg/dL Calcium 9.0 (8.6-10.3) mg/dL Adrenal panel 07/06/17 Range/Units 05:03 Sodium 142 (136-145) mEq/L Potassium 3.9 (3.5-5.1) mEq/L Chloride 106 (98-107) mEq/L Carbon Dioxide 28 (23-29) mEq/L BUN 31 H (8-23) mg/dL Creatinine 0.94 (0.70-1.30) mg/dL Glucose 190 H (70-105) mg/dL Calcium 9.0 (8.6-10.3) mg/dL Total Bilirubin 1.0 (0.3-1.0) mg/dL AST 59 H (13-39) Units/L ALT 54 H (7-52) Units/L Alkaline Phosphatase 78 (34-104) Units/L Albumin 3.1 L (3.5-5.7) g/dL Consult Discharge Plan - Plan Referrals: Mingo Wood DO [Primary Care Provider] -
--- NOTE | 2017-07-06 14:45 | Palliative Progress Note ---
Date of Encounter: 07/06/17 Time of Encounter: 14:15 - Assessment and plan (1) Debility, unspecified Current Visit: Yes Status: Acute Assessment and plan: Patient unable to perform self care. Continued weakness present. Patient to be discharged home with hospice tomorrow. (2) Constipation Current Visit: Yes Status: Acute Assessment and plan: Patient had bowel movement yesterday. Continue Dulcolax Suppository PRN; no doses in last 72 hours. Qualifiers: Qualified Code(s): K59.00 - Constipation, unspecified (3) Altered mental status Current Visit: No Status: Acute Assessment and plan: Patient remains difficult to arouse; requires multiple stimulations for questioning with SW. Qualifiers: Altered mental status type: unspecified Qualified Code(s): R41.82 - Altered mental status, unspecified (4) Goals of care, counseling/discussion Current Visit: Yes Status: Acute Assessment and plan: Discussed plan of care at discharge; family wishes to take patient home with [facility] post receiving prognosis results from Dr. Marquez. SW working with [facility] to arrange DME. [facility] to come to hospital this evening to meet with family and then enrollment tomorrow. (5) CKD (chronic kidney disease) Current Visit: Yes Status: Chronic Qualifiers: Chronic kidney disease stage: stage 3 (moderate) Qualified Code(s): N18.3 - Chronic kidney disease, stage 3 (moderate) (6) Agitation Current Visit: Yes Status: Acute Assessment and plan: Patient's family reports increased agitation level. Will order PRN Ativan for Agitation. (7) Generalized pain Current Visit: Yes Status: Acute Assessment and plan: Family reports patient had previously been complaining of pain. Unsure if patient will continue to be able to take pill form medications as condition deteriorates. Will order SL Morphine Sulfate PRN for pain control in addition to PO meds if needed. - Time Spent With Patient Total time spent is greater than 50% in coordination of care (as documented) at patient's floor/unit and/or counseling patient: - Subjective Interval history: Patient laying in bed, with eyes closed. Quite lethargic at time of assessment. Patient's and daughter Gely at bedside. Patient remains resting during attempt to discuss plan of care with family. Patient's family informed typewriter mechanic that patient's Dr. Marquez came to bedside and encouraged family to bring patient home and keep him comfortable for the remainder of his time. Patient's daughter expressed wishes to bring him home Thursday, or earlier if could be arranged. Requested to go home with [facility] and have assistance with transport home. Patient's daughter verbalized that patient appears to have given up after the prognosis was shared from Dr. Marquez. Patient's family reports patient was eating an orange and asking for Tylenol prior to doctors visit. Met with family alongside SABINE. Patient's family reported DME needs as sling for soraya lift and air mattress for hospital bed; already have hospital bed, bedside table, and BSC. SW contacted [facility] and reported they will be in later this evening to meet with family, then come to hospital to enroll patient tomorrow prior to discharge. Patient's family also concerned over what medications to continue at discharge, will order prescriptions prior to discharge tomorrow. Patient's family concerned patient is having increased agitation. Patient waving arms in air during sleep. Appears to be slightly anxious, not verbalizing responses. - Constitutional Vitals: Abnormal lab results RBC 2.31 M/mcL (4.19-5.50) L 07/06/17 05:03 Hgb 8.0 g/dL (12.9-16.9) L 07/06/17 05:03 Hct 25.1 % (37.5-50.1) L 07/06/17 05:03 MCV 108.7 fL (83.0-100.0) H 07/06/17 05:03 MCH 34.6 pg (28.0-33.3) H 07/06/17 05:03 RDW 17.2 % (11.5-14.5) H 07/06/17 05:03 Nucleated RBCs/100 WBC 0.4 /100 WBC (0) H 07/05/17 05:22 BUN 31 mg/dL (8-23) H 07/06/17 05:03 BUN/Creatinine Ratio 33 (6-26) H 07/06/17 05:03 Glucose 190 mg/dL (70-105) H 07/06/17 05:03 POC Glucose 214 (58-89) H 07/06/17 11:18 Calculated Osmolality 306 (280-300) H 07/06/17 05:03 Direct Bilirubin 0.3 mg/dL (0.0-0.2) H 06/27/17 03:40 AST 59 Units/L (13-39) H 07/06/17 05:03 ALT 54 Units/L (7-52) H 07/06/17 05:03 Troponin I 2.37 ng/mL (< 0.04) H* 06/27/17 06:48 B-Natriuretic Peptide 351 pg/mL (Less than 100) H 06/26/17 12:03 Serum Total Protein 5.8 g/dL (6.4-8.9) L 07/06/17 05:03 Albumin 3.1 g/dL (3.5-5.7) L 07/06/17 05:03 Urine Clarity Turbid (Clear) A 06/30/17 12:00 Ur Specific [place] 1.026 (1.010-1.025) H 06/30/17 12:00 Urine Protein 30 mg/dL (Neg-Trace) H 06/30/17 12:00 Urine Glucose (UA) >=1000 mg/dL (Normal) H 06/30/17 12:00 Urine Blood Large (Negative) H 06/30/17 12:00 Ur Leukocyte Esterase Large (Negative) H 06/30/17 12:00 Urine Microscopic WBC TNTC per hpf (0-3) H 06/30/17 12:00 Ur Squamous Epith Cells Many per lpf (None-Few) H 06/30/17 12:00 Ur Transition Epith Cell Moderate per hpf (None-Few) H 06/26/17 12:20 Urine Yeast Many per hpf (None Seen) H 06/30/17 12:00 General appearance: Present: cooperative, no acute distress - Head Head exam: Present: normal inspection - Eye Eye exam: Present: normal appearance - ENT ENT exam: Present: mucous membranes moist, normal exam - Neck Neck exam: Present: full ROM, normal inspection - Respiratory Respiratory exam: Present: CTAB. Absent: accessory muscle use, chest wall tenderness, decreased breath sounds - Cardiovascular Cardiovascular exam: Present: irregular rhythm - Expanded Cardiovascular Exam Peripheral pulses: 2+: Radial (L), Radial (R), Dorsalis Pedis (L) PM, Dorsalis Pedis (R) PM - GI/Abdominal GI/Abdominal exam: Present: normal bowel sounds, soft. Absent: tenderness - Rectal Rectal exam: Present: deferred - Extremities Exam Extremities exam: Present: normal capillary refill, normal inspection, pedal edema. Absent: calf tenderness - Neurological Exam Neurological exam: Absent: oriented X3 Additional comments: Lethargic - Psychiatric Psychiatric exam: Present: agitated, anxious, flat affect. Absent: depressed - Skin Skin exam: Present: dry, intact, normal color, warm Palliative Quality Palliative Quality: Screen for Code Status: Yes, Screen for Goals of Care: Yes, Screen for Pain: Yes (No pain medicine started.), If Pain Regimen Started, Initiate Bowel Regimen: Yes, Screen for Nausea/Vomitting: Yes - Labs CBC & Chem 7: 07/06/17 05:03 07/06/17 05:03 Labs: Laboratory Results - last 24 hr 07/04/17 07/05/17 07/05/17 19:31 07:42 15:42 WBC RBC Hgb Hct MCV MCH MCHC RDW Plt Count MPV Immature Gran % Seg Neutrophils % Lymphocytes % Monocytes % Eosinophils % Basophils % Neutrophils # Lymphocytes # Monocytes # Eosinophils # Basophils # Sodium Potassium Chloride Carbon Dioxide BUN Creatinine Est GFR ( Amer) Est GFR (Non-Af Amer) BUN/Creatinine Ratio Glucose POC Glucose 256 H 191 H 210 H Calculated Osmolality Calcium Total Bilirubin AST ALT Alkaline Phosphatase Serum Total Protein Albumin Globulin Albumin/Globulin Ratio 07/05/17 07/06/17 07/06/17 20:19 05:03 05:03 WBC 7.2 RBC 2.31 L Hgb 8.0 L Hct 25.1 L MCV 108.7 H MCH 34.6 H MCHC 31.9 RDW 17.2 H Plt Count 145 MPV 10.7 Immature Gran % 1.4 Seg Neutrophils % 72.2 Lymphocytes % 17.1 Monocytes % 5.4 Eosinophils % 3.3 Basophils % 0.6 Neutrophils # 5.2 Lymphocytes # 1.2 Monocytes # 0.4 Eosinophils # 0.2 Basophils # 0.0 Sodium 142 Potassium 3.9 Chloride 106 Carbon Dioxide 28 BUN 31 H Creatinine 0.94 Est GFR ( Amer) > 60 Est GFR (Non-Af Amer) > 60 BUN/Creatinine Ratio 33 H Glucose 190 H POC Glucose 268 H Calculated Osmolality 306 H Calcium 9.0 Total Bilirubin 1.0 AST 59 H ALT 54 H Alkaline Phosphatase 78 Serum Total Protein 5.8 L Albumin 3.1 L Globulin 2.7 Albumin/Globulin Ratio 1.1 07/06/17 07/06/17 08:04 11:18 WBC RBC Hgb Hct MCV MCH MCHC RDW Plt Count MPV Immature Gran % Seg Neutrophils % Lymphocytes % Monocytes % Eosinophils % Basophils % Neutrophils # Lymphocytes # Monocytes # Eosinophils # Basophils # Sodium Potassium Chloride Carbon Dioxide BUN Creatinine Est GFR ( Amer) Est GFR (Non-Af Amer) BUN/Creatinine Ratio Glucose POC Glucose 214 H 214 H Calculated Osmolality Calcium Total Bilirubin AST ALT Alkaline Phosphatase Serum Total Protein Albumin Globulin Albumin/Globulin Ratio Consult Discharge Plan - Plan Referrals: Mingo Wood DO [Primary Care Provider] -
[2017-07-06] MEDS ORDERED: *HR* LORazepam Oral Conc 2 MG/ML SL PRN (14:56)
[2017-07-06] MEDS ORDERED: MORPHINE SUL Oral CONC 10 MG/0.5 ML ORAL.SYG SL PRN (14:57)
[2017-07-06] MEDS: Miconazole w/zinc oxide&karaya 92 APPL/92 GM TUBE TP SCH ×2 (17:26→20:20)
--- NOTE | 2017-07-06 21:37 | Discharge Summary ---
Orders not resulted at time of discharge: Pending orders 07/07/17 04:00 Complete Blood Count [HEME] AM 0400 Knapp catheter changes q4 wks Follow up with Med Oncology as directed Date of Encounter: 07/06/17 Time of Encounter: 15:10 - Discharge Diagnosis (1) Septic shock Priority: Primary Status: Acute Code(s): A41.9 - Sepsis, unspecified organism; R65.21 - Severe sepsis with septic shock (2) CKD (chronic kidney disease) Priority: Secondary Status: Chronic Qualifiers: Chronic kidney disease stage: stage 3 (moderate) Qualified Code(s): N18.3 - Chronic kidney disease, stage 3 (moderate) (3) Diabetes mellitus Priority: Secondary Status: Chronic Qualifiers: Diabetes mellitus type: type 2 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 Patient was recently admitted for overdose of tramadol which led to some kidney failure. He has a chronic indwelling Knapp that was recently replaced 2 days before admisssion He has had decrease urine output. Family also noted some decrease in appetite. He denies any headache, chest pain, shortness of breath, nausea or vomiting. He endorsed some abdominal tenderness as well as sacral tenderness. He has a stage two decbitus ulcer that he has been treating over the past several weeks. Denies any recent illness, cough or fevers at home. In the emergency department patient was found to be hypotensive with a systolic in the 60s to 70s. Patient was given a total of 2000 mL normal saline for fluid resuscitation. He continue to be hypotensive and was placed on push dose norepinephrine. He is being treated with empiric antibiotics vancomycin and Zosyn. Chest x-ray did not reveal pneumonia or pulmonary process. He does have elevated troponin 1.5. The elevate troponins were attributed by cardiology to demand ischemia and not an WI. His atrial flutter was treated with an amiodarone drip which was transitioned to oral amiodarone. He became fluid overloaded following the initial period of shock treatment. He had a Knapp catheter placed by urology for urinary retention and it will be removed after discharge. He has be agressively diuressed and given albumin to help with fluid overload. His sacral decubitus ulcer and yeast infection involving his groin were treated by wound care.He has outpatient f/u with urology for his bladder cancer. Dscharge diagnoses: Septic shock due to undetermined organism Atrial flutter Elevated troponin I level H/O aortic valve replacement with porcine valve Peripheral edema: Groin infection and sacral pressure sore (stage II) Bladder cancer (HG-Urethelial carcinoma). Goals of care, counseling/discussion: Severe debilitation: Urinary retention: Discharge discussed with: patient, family, nurse, social work, case management Time spent discussing smoking cessation with patient: more than 10 minutes - Time Spent with Patient Total time spent providing and/or coordinating discharge services: Greater than 30 minutes - Discharge Medications Home Medications: B Complex with Vitamin C [Vitamin B-Complex & C] 1 each PO DAILY 12/18/15 [ History] Cranberry Fruit Extract [Cranberry] 500 mg PO DAILY 12/18/15 [History] Cyanocobalamin (Vitamin B-12) [Vitamin B-12] 5,000 mcg SL DAILY 12/18/15 [ History] Gabapentin [Neurontin] 300 mg PO HS 12/18/15 [History] Garlic 1,000 mg PO DAILY 12/18/15 [History] Ginkgo Biloba 60 mg PO DAILY 12/18/15 [History] Gluc Lemos/MSM/Magnesium/Vit C [Glucosamine Complex-MSM Cap] 2 each PO DAILY [History] Insulin Glargine,Hum.rec.anlog [Lantus Solostar] 40 unit SQ HS 12/18/15 [History ] Insulin LISPRO [Humalog] 35 unit SQ TID 12/18/15 [History] Metoprolol XL (24 HR) Succ [Toprol Xl] 37.5 mg PO BID 12/18/15 [History] Nortriptyline [Pamelor] 25 mg PO HS 12/18/15 [History] Tumeric-Curcumin Complex 1 tab PO DAILY 12/18/15 [History] Vit C/E/Zn/Coppr/Lutein/Zeaxan [Preservision Areds 2 Softgel] 2 cap PO DAILY 09/26 [History] Atorvastatin Calcium [Lipitor] 80 mg PO HS 01/15/16 [History] Multivit-Min/Iron Fum/Folic AC [Cgwnu-Aumfhhs-Vfqipzlp Tablet] 1 each PO DAILY 01/15/16 [History] Enalapril Maleate [Vasotec] 10 mg PO DAILY 04/18/16 [History] Fenofibrate [Lofibra] 160 mg PO DAILY 04/18/16 [History] Ranitidine HCl [Heartburn Relief] 150 mg PO DAILY 04/18/16 [History] Levothyroxine [Levothyroxine Sodium] 125 mcg PO DAILY@0630 06/27/16 [History] Lutein/Zeaxanthin [Lutein-Zeaxanthin 25-5 mg Sfgl] 1 each PO DAILY 06/27/16 [ History] Apixaban [Eliquis] 2.5 mg PO BID 12/26/16 [History] Bumetanide [Bumex] 1 mg PO BID 12/26/16 [History] Acetaminophen [Tylenol Arthritis] 650 mg PO BID 05/12/17 [History] Folic Acid 1 mg PO DAILY 05/12/17 [History] Finasteride [Proscar] 5 mg PO DAILY #7 tablet 06/18/17 [Rx] Tamsulosin [Flomax] 0.4 mg PO DAILY #7 cap.er.24h 06/18/17 [Rx] Cephalexin [Keflex] 500 mg PO QID 06/26/17 [History] Iron 65 mg PO DAILY 06/26/17 [History] Tramadol HCl [Ultram] 50 mg PO TID PRN 06/26/17 [History] Allergies/Adverse Reactions: 3 Allergy/AdvReac Type Severity Reaction Status Date / Time No Known Allergies Allergy Verified 06/26/17 13:07 Date of admission: 06/26/17 17:44 Primary care physician: Mingo Wood DO Consults: 06/29/17 12:17 Consult to Wound Care [CONS] Routine Reason for Consult: Sacral decubitus ulcer Time Notified: 12:18 Call Completed: No 06/30/17 11:27 Consult to Palliative Care [CONS] Routine Comment: Consulting Provider: Palliative Care Kym Reason for Consult: Goals of care. Family open to hospice Time Notified: 11:29 Call Completed: Yes 06/30/17 15:13 Consult to Occupational Therapy [CONS] Routine Comment: Evaluate, develop and implement POC Reason for Consult: weakness Does patient have active BEDREST order?: No Is patient medically & hemodynamically stable?: Yes Patient assessed for mobility or mobilized this visit?: No Consult to Physical Therapy [CONS] Routine Comment: Evaluate, develop and implement POC Reason for Consult: weakness. Does patient have active BEDREST order?: No Is patient medically & hemodynamically stable?: Yes Patient assessed for mobility or mobilized this visit?: No 07/01/17 14:38 Consult to Oncology Hematology [CONS] Routine Consulting Provider: Anna Hernandez Reason for Consult: bladder cancer f/u missed chemo Time Notified: 14:40 Call Completed: Yes 07/06/17 11:18 Consult to Urology [CONS] Routine Consulting Provider: Urology Kym Reason for Consult: Pt with urothelial Ca and urinary retention with indweling Knapp, Voiding trial before going home? Time Notified: 11:31 Call Completed: Yes - Constitutional Vitals: Temp Pulse Resp BP Pulse Ox 98.6 F 78 18 119/48 100 07/06/17 20:13 07/06/17 20:13 07/06/17 20:13 07/06/17 20:13 07/06/17 20:13 General appearance: Present: cooperative, A&O X 3, pleasant, no acute distress, answers questions appropriately - Head Head exam: Present: atraumatic, normocephalic - Eye Eye exam: Present: PERRL, conjuntiva pink, sclera anicteric Pupils: Present: PERRL - Neck Neck exam general surgery: Present: supple, trachea midline. Absent: lymphadenopathy - Respiratory Respiratory exam: Present: CTAB. Absent: accessory muscle use, rales, rhonchi, wheezes - Cardiovascular Cardiovascular exam: Present: RRR, +S1, +S2. Absent: diastolic murmur, gallop, rubs, systolic murmur - GI/Abdominal GI/Abdominal exam: Present: normal bowel sounds, soft, no peritoneal signs. Absent: distended, tenderness - Extremities Exam Extremities exam: Present: warm, radial pulses palpable and symmetrical. Absent : calf tenderness, cyanotic, pedal edema - Neurological Exam Neurological exam: Present: CN II-XII intact, oriented X3, no focal deficits. Absent: pronater drift, facial droop, speech deficit - Psychiatric Psychiatric exam: Present: normal affect, normal mood - Skin Skin exam: Present: dry, intact - Patient Status Disposition: Hospice - Home Condition: Serious Functional capacity at discharge: bed bound Overall status at discharge: patient is progressing back to baseline - Discharge Instructions Follow Up With: Mingo Wood DO [Primary Care Provider] -
[2017-07-07] MEDS: Albumin 25% 25gram/100mL 25 GM/100 ML IV.SOLN IVPB SCH ×2 (00:26→08:26)
[2017-07-07] MEDS: Ipratropium/Albuterol Neb 3 ML IH SCH ×2 (03:56→10:44)
[2017-07-07 05:49] LABS: Basophils % 0.6 %; Eosinophils # 0.3 K/mcL (0.0-0.6); Eosinophils % 4.9 %; Hematocrit 25.8 % (37.5-50.1); Hemoglobin 8.1 g/dL (12.9-16.9); Immature Granulocytes % 1.1 % (0-4); Lymphocytes % 15.2 %; Mean Corpuscular HGB Conc 31.4 g/dL (31.6-35.5); Mean Corpuscular Hemoglobin 34.6 pg (28.0-33.3); Mean Corpuscular Volume 110.3 fL (83.0-100.0); Mean Platelet Volume 11.1 fL (9.4-12.4); Monocytes # 0.3 K/mcL (0.0-1.3); Monocytes % 5.1 %; Neutrophils # 4.8 K/mcL (1.6-8.9); Nucleated Red Blood Cells 0.3 /100 WBC (0); Platelet Count 141 K/mcL (140-400); Red Blood Count 2.34 M/mcL (4.19-5.50); Red Cell Distribution Width 17.1 % (11.5-14.5); Segmented Neutrophils % 73.1 %
[2017-07-07 06:19] LABS: Anisocytosis 1+ (Not Present); Macrocytosis Present (Not Present); Platelet Estimate Normal (Normal); Polychromasia 1+ (Not Present)
[2017-07-07] MEDS: Bumetanide 1 MG/4 ML VIAL IVP SCH (08:25)
[2017-07-07] MEDS: Insulin LISPRO 300 UNITS/3 ML VIAL SQ SCH ×2 (08:26→12:17)
[2017-07-07] MEDS: Apixaban 2.5 MG TABLET PO SCH (08:27)
[2017-07-07] MEDS: Miconazole w/zinc oxide&karaya 92 APPL/92 GM TUBE TP SCH (08:27)
[2017-07-07] MEDS: Nystatin POWDER 30 GM BOTTLE TP SCH (08:28)
--- NOTE | 2017-07-07 09:12 | Palliative Progress Note ---
Date of Encounter: 07/07/17 Time of Encounter: 08:40 - Assessment and plan (1) Debility, unspecified Current Visit: Yes Status: Acute Assessment and plan: Patient unable to perform self care. Continued weakness present. Patient to be discharged home with hospice today. Patient has needed DME Bed, Bedside commode , and DME. (2) Constipation Current Visit: Yes Status: Acute Assessment and plan: No complaints of abdominal discomfort at this time. Continue Dulcolax Suppository PRN; no doses in last 24 hours. Prescription written for discharge home. Qualifiers: Qualified Code(s): K59.00 - Constipation, unspecified (3) Altered mental status Current Visit: No Status: Acute Assessment and plan: Patient alert and oriented times three this am; stable. Qualifiers: Altered mental status type: unspecified Qualified Code(s): R41.82 - Altered mental status, unspecified (4) Goals of care, counseling/discussion Current Visit: Yes Status: Acute Assessment and plan: Reinforced plan of care at discharge; family ready to take patient home with [facility]. [facility] notified of patient being discharged and ready for nurse to come evaluate. Discharge prescriptions written for Ativan, Morphine Sulfate, and Dulcolax. (5) CKD (chronic kidney disease) Current Visit: Yes Status: Chronic Qualifiers: Chronic kidney disease stage: stage 3 (moderate) Qualified Code(s): N18.3 - Chronic kidney disease, stage 3 (moderate) (6) Agitation Current Visit: Yes Status: Acute Assessment and plan: Patient denies agitation at this time. No doses of Ativan administered in last 24 hours. Rx written for discharge. (7) Generalized pain Current Visit: Yes Status: Acute Assessment and plan: Patient denies pain at time of assessment. No doses of Morphine Sulfate administered in last 24 hours. Rx written for discharge. - Time Spent With Patient Total time spent is greater than 50% in coordination of care (as documented) at patient's floor/unit and/or counseling patient: - Subjective Interval history: Patient awake with eyes open on arrival. No complaints of pain, nausea, or anxiety at this time. Patient's and daughter at bedside. Patient's reports she still feels numb, reinforced normal progression of acceptance. Patient's daughter Gely Verbalized understanding; plan to wait at bedside for Hospice Nurse. Patient is alert and oriented X3 and is excited to go home. Explained difference in DNR CCA/DNI and DNR CC; patient wished to change patient 's status to DNR CC. Notified [facility] at [facility] patient ready to be discharged. Informed would send nurse. No doses of Morphine Sulfate, Dulcolax , or Ativan administered in the last 24 hours. - Constitutional Vitals: Abnormal lab results RBC 2.34 M/mcL (4.19-5.50) L 07/07/17 04:51 Hgb 8.1 g/dL (12.9-16.9) L 07/07/17 04:51 Hct 25.8 % (37.5-50.1) L 07/07/17 04:51 MCV 110.3 fL (83.0-100.0) H 07/07/17 04:51 MCH 34.6 pg (28.0-33.3) H 07/07/17 04:51 MCHC 31.4 g/dL (31.6-35.5) L 07/07/17 04:51 RDW 17.1 % (11.5-14.5) H 07/07/17 04:51 Nucleated RBCs/100 WBC 0.3 /100 WBC (0) H 07/07/17 04:51 Polychromasia 1+ (Not Present) A 07/07/17 04:51 Anisocytosis 1+ (Not Present) A 07/07/17 04:51 Macrocytosis Present (Not Present) A 07/07/17 04:51 BUN 31 mg/dL (8-23) H 07/06/17 05:03 BUN/Creatinine Ratio 33 (6-26) H 07/06/17 05:03 Glucose 190 mg/dL (70-105) H 07/06/17 05:03 POC Glucose 258 (58-89) H 07/06/17 15:16 Calculated Osmolality 306 (280-300) H 07/06/17 05:03 Direct Bilirubin 0.3 mg/dL (0.0-0.2) H 06/27/17 03:40 AST 59 Units/L (13-39) H 07/06/17 05:03 ALT 54 Units/L (7-52) H 07/06/17 05:03 Troponin I 2.37 ng/mL (< 0.04) H* 06/27/17 06:48 B-Natriuretic Peptide 351 pg/mL (Less than 100) H 06/26/17 12:03 Serum Total Protein 5.8 g/dL (6.4-8.9) L 07/06/17 05:03 Albumin 3.1 g/dL (3.5-5.7) L 07/06/17 05:03 Urine Clarity Turbid (Clear) A 06/30/17 12:00 Ur Specific [place] 1.026 (1.010-1.025) H 06/30/17 12:00 Urine Protein 30 mg/dL (Neg-Trace) H 06/30/17 12:00 Urine Glucose (UA) >=1000 mg/dL (Normal) H 06/30/17 12:00 Urine Blood Large (Negative) H 06/30/17 12:00 Ur Leukocyte Esterase Large (Negative) H 06/30/17 12:00 Urine Microscopic WBC TNTC per hpf (0-3) H 06/30/17 12:00 Ur Squamous Epith Cells Many per lpf (None-Few) H 06/30/17 12:00 Ur Transition Epith Cell Moderate per hpf (None-Few) H 06/26/17 12:20 Urine Yeast Many per hpf (None Seen) H 06/30/17 12:00 General appearance: Present: cooperative, no acute distress - Head Head exam: Present: normal inspection - Eye Eye exam: Present: normal appearance - ENT ENT exam: Present: mucous membranes moist, normal exam - Neck Neck exam: Present: full ROM, normal inspection - Respiratory Respiratory exam: Present: CTAB. Absent: accessory muscle use, respiratory distress - Cardiovascular Cardiovascular exam: Present: irregular rhythm - GI/Abdominal GI/Abdominal exam: Present: normal bowel sounds, soft. Absent: tenderness - Extremities Exam Extremities exam: Present: normal capillary refill, pedal edema. Absent: calf tenderness, normal inspection, tenderness - Expanded Lower Extremity Exam Ankle exam: Present: swelling. Absent: tenderness Foot/Toe exam: Present: swelling. Absent: tenderness - Neurological Exam Neurological exam: Present: alert, oriented X3. Absent: abnormal gait, altered , normal gait, facial droop - Psychiatric Psychiatric exam: Present: normal affect, normal mood. Absent: agitated, anxious, manic - Skin Skin exam: Present: dry, warm Palliative Quality Palliative Quality: Screen for Code Status: Yes, Screen for Goals of Care: Yes, Screen for Pain: Yes (No pain medicine started.), If Pain Regimen Started, Initiate Bowel Regimen: Yes, Screen for Nausea/Vomitting: Yes Code Status: 07/07/17 08:58 DNR [Resuscitation Status: Active] [RES] Routine Resuscitation Status: DNR-Comfort Care Comment: State form completed. - Labs CBC & Chem 7: 07/07/17 04:51 07/06/17 05:03 Labs: Laboratory Results - last 24 hr 07/06/17 07/06/17 07/06/17 08:04 11:18 15:16 WBC RBC Hgb Hct MCV MCH MCHC RDW Plt Count MPV Immature Gran % Seg Neutrophils % Lymphocytes % Monocytes % Eosinophils % Basophils % Neutrophils # Lymphocytes # Monocytes # Eosinophils # Basophils # Nucleated RBCs/100 WBC Platelet Estimate Polychromasia Anisocytosis Macrocytosis POC Glucose 214 H 214 H 258 H 07/07/17 04:51 WBC 6.5 RBC 2.34 L Hgb 8.1 L Hct 25.8 L MCV 110.3 H MCH 34.6 H MCHC 31.4 L RDW 17.1 H Plt Count 141 MPV 11.1 Immature Gran % 1.1 Seg Neutrophils % 73.1 Lymphocytes % 15.2 Monocytes % 5.1 Eosinophils % 4.9 Basophils % 0.6 Neutrophils # 4.8 Lymphocytes # 1.0 Monocytes # 0.3 Eosinophils # 0.3 Basophils # 0.0 Nucleated RBCs/100 WBC 0.3 H Platelet Estimate Normal Polychromasia 1+ A Anisocytosis 1+ A Macrocytosis Present A POC Glucose Consult Discharge Plan - Plan Referrals: Mingo Wood DO [Primary Care Provider] - Prescriptions: LORazepam Oral Conc [Ativan Oral Conc] 0.5 - 1 mg SL Q4HR PRN 4 Days #6 mls PRN Reason: Agitation Bisacodyl [Dulcolax] 10 mg RC DAILY PRN 4 Days #4 supp.rect PRN Reason: Constipation Morphine Sulfate [Morphine Oral Solution] 2.5 - 5 mg SL Q4H PRN 4 Days #30 ml PRN Reason: Pain
[2017-07-07 11:43] VITALS: BP 98/58
--- NOTE | 2017-07-07 13:16 | Discharge Summary ---
- NOTES TO OUTPATIENT PROVIDER Notes to Outpatient Provider: Follow up with urology as directed. Change gupta catheter every 4 weeks per urology. Date of Encounter: 07/07/17 Time of Encounter: 13:14 - Discharge Diagnosis (1) Septic shock Priority: Primary Status: Resolved (2) Elevated troponin I level Priority: Secondary Status: Acute (3) Hypotension Priority: Secondary Status: Resolved Qualifiers: Hypotension type: unspecified hypotension type Qualified Code(s): I95.9 - Hypotension, unspecified (4) CKD (chronic kidney disease) Priority: Secondary Status: Chronic Qualifiers: Chronic kidney disease stage: stage 3 (moderate) Qualified Code(s): N18.3 - Chronic kidney disease, stage 3 (moderate) (5) Diabetes mellitus Priority: Secondary Status: Chronic Qualifiers: Diabetes mellitus type: type 2 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 Patient was recently admitted for overdose of tramadol which led to some kidney failure. He has a chronic indwelling Gupta that was recently replaced 2 days before admisssion He has had decrease urine output. Family also noted some decrease in appetite. He denies any headache, chest pain, shortness of breath, nausea or vomiting. He endorsed some abdominal tenderness as well as sacral tenderness. He has a stage two decbitus ulcer that he has been treating over the past several weeks. Denies any recent illness, cough or fevers at home. In the emergency department patient was found to be hypotensive with a systolic in the 60s to 70s. Patient was given a total of 2000 mL normal saline for fluid resuscitation. He continued to be hypotensive and was placed on push dose norepinephrine. He was treated with empiric antibiotics vancomycin and Zosyn. Chest x-ray did not reveal pneumonia or pulmonary process. He did have elevated troponin of 1.5. The elevate troponins were attributed by cardiology to demand ischemia and not an SD. His atrial flutter was treated with an amiodarone drip which was transitioned to oral amiodarone. He became fluid overloaded following the initial period of shock treatment. He had a Gupta catheter placed by urology for urinary retention and it will be continued at discharge (to be changed every 4 weeks). He has be aggressively diuresed and given albumin to help with fluid overload. His sacral decubitus ulcer and yeast infection involving his groin were treated by wound care. He has outpatient f/u with urology for his bladder cancer. He has elected to be discharged home with [facility] hospice. Palliative care has been consulted and have arranged prescriptions. Patient has met maximum benefit of this hospitalization and will be discharged home with home hospice in stable condition. Discharge discussed with: patient, family, nurse, social work, case management, other (Pharmacist) - Time Spent with Patient Total time spent providing and/or coordinating discharge services: Greater than 30 minutes - Discharge Medications Prescriptions: LORazepam Oral Conc [Ativan Oral Conc] 0.5 - 1 mg SL Q4HR PRN 4 Days #6 mls PRN Reason: Agitation Bisacodyl [Dulcolax] 10 mg RC DAILY PRN 4 Days #4 supp.rect PRN Reason: Constipation Morphine Oral CONC [Roxanol] 0.125 - 0.25 ml SL Q4H PRN 4 Days #6 ml PRN Reason: Pain Home Medications: B Complex with Vitamin C [Vitamin B-Complex & C] 1 each PO DAILY 12/18/15 [ History] Cranberry Fruit Extract [Cranberry] 500 mg PO DAILY 12/18/15 [History] Cyanocobalamin (Vitamin B-12) [Vitamin B-12] 5,000 mcg SL DAILY 12/18/15 [ History] Gabapentin [Neurontin] 300 mg PO HS 12/18/15 [History] Garlic 1,000 mg PO DAILY 12/18/15 [History] Ginkgo Biloba 60 mg PO DAILY 12/18/15 [History] Gluc Lemos/MSM/Magnesium/Vit C [Glucosamine Complex-MSM Cap] 2 each PO DAILY [History] Insulin Glargine,Hum.rec.anlog [Lantus Solostar] 40 unit SQ HS 12/18/15 [History ] Insulin LISPRO [Humalog] 35 unit SQ TID 12/18/15 [History] Metoprolol XL (24 HR) Succ [Toprol Xl] 37.5 mg PO BID 12/18/15 [History] Nortriptyline [Pamelor] 25 mg PO HS 12/18/15 [History] Tumeric-Curcumin Complex 1 tab PO DAILY 12/18/15 [History] Vit C/E/Zn/Coppr/Lutein/Zeaxan [Preservision Areds 2 Softgel] 2 cap PO DAILY 09/26 [History] Atorvastatin Calcium [Lipitor] 80 mg PO HS 01/15/16 [History] Multivit-Min/Iron Fum/Folic AC [Gaqis-Sxmmtgk-Uiyvcptv Tablet] 1 each PO DAILY 01/15/16 [History] Enalapril Maleate [Vasotec] 10 mg PO DAILY 04/18/16 [History] Fenofibrate [Lofibra] 160 mg PO DAILY 04/18/16 [History] Ranitidine HCl [Heartburn Relief] 150 mg PO DAILY 04/18/16 [History] Levothyroxine [Levothyroxine Sodium] 125 mcg PO DAILY@0630 06/27/16 [History] Lutein/Zeaxanthin [Lutein-Zeaxanthin 25-5 mg Sfgl] 1 each PO DAILY 06/27/16 [ History] Apixaban [Eliquis] 2.5 mg PO BID 12/26/16 [History] Bumetanide [Bumex] 1 mg PO BID 12/26/16 [History] Acetaminophen [Tylenol Arthritis] 650 mg PO BID 05/12/17 [History] Folic Acid 1 mg PO DAILY 05/12/17 [History] Finasteride [Proscar] 5 mg PO DAILY #7 tablet 06/18/17 [Rx] Tamsulosin [Flomax] 0.4 mg PO DAILY #7 cap.er.24h 06/18/17 [Rx] Iron 65 mg PO DAILY 06/26/17 [History] Bisacodyl [Dulcolax] 10 mg RC DAILY PRN 4 Days #4 supp.rect 07/07/17 [Rx] LORazepam Oral Conc [Ativan Oral Conc] 0.5 - 1 mg SL Q4HR PRN 4 Days #6 mls [Rx] Morphine Oral CONC [Roxanol] 0.125 - 0.25 ml SL Q4H PRN 4 Days #6 ml 07/07/17 [ Rx] Allergies/Adverse Reactions: 3 Allergy/AdvReac Type Severity Reaction Status Date / Time No Known Allergies Allergy Verified 06/26/17 13:07 Date of admission: 06/26/17 17:44 Primary care physician: Mingo Wood DO Consults: 06/29/17 12:17 Consult to Wound Care [CONS] Routine Reason for Consult: Sacral decubitus ulcer Time Notified: 12:18 Call Completed: No 06/30/17 11:27 Consult to Palliative Care [CONS] Routine Comment: Consulting Provider: Palliative Care Kym Reason for Consult: Goals of care. Family open to hospice Time Notified: 11:29 Call Completed: Yes 06/30/17 15:13 Consult to Occupational Therapy [CONS] Routine Comment: Evaluate, develop and implement POC Reason for Consult: weakness Does patient have active BEDREST order?: No Is patient medically & hemodynamically stable?: Yes Patient assessed for mobility or mobilized this visit?: No Consult to Physical Therapy [CONS] Routine Comment: Evaluate, develop and implement POC Reason for Consult: weakness. Does patient have active BEDREST order?: No Is patient medically & hemodynamically stable?: Yes Patient assessed for mobility or mobilized this visit?: No 07/01/17 14:38 Consult to Oncology Hematology [CONS] Routine Consulting Provider: Anna Hernandez Reason for Consult: bladder cancer f/u missed chemo Time Notified: 14:40 Call Completed: Yes 07/06/17 11:18 Consult to Urology [CONS] Routine Consulting Provider: Urology Kym Reason for Consult: Pt with urothelial Ca and urinary retention with indweling Gupta, Voiding trial before going home? Time Notified: 11:31 Call Completed: Yes Discharging clinician: Russel Valencia Anticipated date of discharge: 07/07/17 - Constitutional Vitals: Temp Pulse Resp BP Pulse Ox 98.9 F 88 16 98/58 94 07/07/17 11:33 07/07/17 11:33 07/07/17 11:33 07/07/17 11:33 07/07/17 11:33 General appearance: Present: cooperative, A&O X 3, pleasant, no acute distress, answers questions appropriately - Respiratory Respiratory exam: Present: CTAB. Absent: accessory muscle use, rales, rhonchi, wheezes Additional comments: Normal WOB - Cardiovascular Cardiovascular exam: Present: RRR, +S1, +S2. Absent: diastolic murmur, gallop, rubs, systolic murmur Additional comments: Mild BLE edema - GI/Abdominal GI/Abdominal exam: Present: normal bowel sounds, soft. Absent: distended, hepatomegaly, mass, splenomegaly, tenderness - Psychiatric Psychiatric exam: Present: normal affect, normal mood. Absent: anxious, depressed - Skin Skin exam: Present: dry, intact, warm. Absent: cyanosis, rash - Patient Status Disposition: Hospice - Home Condition: Serious Overall status at discharge: patient is progressing back to baseline - Discharge Instructions Follow Up With: Mingo Wood DO [Primary Care Provider] - Additional Instructions: Follow up with urology as directed. Change gupta catheter every 4 weeks per urology. - Diet and Activity Activity: resume usual activities as tolerated Diet: advance to your usual diet
--- NOTE | 2017-07-07 13:41 | Physician Discharge Referral ---
Home Health/Hosp Referral Info Transfer to: Hospice Provider in Charge Post Discharge: PCP - Diagnosis (1) Septic shock Priority: Primary Status: Resolved (2) Elevated troponin I level Priority: Secondary Status: Acute (3) Hypotension Priority: Secondary Status: Resolved (4) CKD (chronic kidney disease) Priority: Secondary Status: Chronic (5) Diabetes mellitus Priority: Secondary Status: Chronic - Respiratory Orders Oxygen / L per min (NC PRN Comfort) Smoking Cessation: Smoking cessation has been advised. For more information, call the [facility]uit Line at [phone]. - Diet/Nutrition Diet/Nutrition Orders: Regular - Activity Activity Orders: Up ad rosa - Services Needed Following services are medically necessary services: Nursing - Transfer Medications Prescriptions: LORazepam Oral Conc [Ativan Oral Conc] 0.5 - 1 mg SL Q4HR PRN 4 Days #6 mls PRN Reason: Agitation Bisacodyl [Dulcolax] 10 mg RC DAILY PRN 4 Days #4 supp.rect PRN Reason: Constipation Morphine Oral CONC [Roxanol] 0.125 - 0.25 ml SL Q4H PRN 4 Days #6 ml PRN Reason: Pain Home Medications: B Complex with Vitamin C [Vitamin B-Complex & C] 1 each PO DAILY 12/18/15 [ History] Cranberry Fruit Extract [Cranberry] 500 mg PO DAILY 12/18/15 [History] Cyanocobalamin (Vitamin B-12) [Vitamin B-12] 5,000 mcg SL DAILY 12/18/15 [ History] Gabapentin [Neurontin] 300 mg PO HS 12/18/15 [History] Garlic 1,000 mg PO DAILY 12/18/15 [History] Ginkgo Biloba 60 mg PO DAILY 12/18/15 [History] Gluc Lemos/MSM/Magnesium/Vit C [Glucosamine Complex-MSM Cap] 2 each PO DAILY [History] Insulin Glargine,Hum.rec.anlog [Lantus Solostar] 40 unit SQ HS 12/18/15 [History ] Insulin LISPRO [Humalog] 35 unit SQ TID 12/18/15 [History] Metoprolol XL (24 HR) Succ [Toprol Xl] 37.5 mg PO BID 12/18/15 [History] Nortriptyline [Pamelor] 25 mg PO HS 12/18/15 [History] Tumeric-Curcumin Complex 1 tab PO DAILY 12/18/15 [History] Vit C/E/Zn/Coppr/Lutein/Zeaxan [Preservision Areds 2 Softgel] 2 cap PO DAILY 09/26 [History] Atorvastatin Calcium [Lipitor] 80 mg PO HS 01/15/16 [History] Multivit-Min/Iron Fum/Folic AC [Yyybh-Hmachsh-Ovrmdmjo Tablet] 1 each PO DAILY 01/15/16 [History] Enalapril Maleate [Vasotec] 10 mg PO DAILY 04/18/16 [History] Fenofibrate [Lofibra] 160 mg PO DAILY 04/18/16 [History] Ranitidine HCl [Heartburn Relief] 150 mg PO DAILY 04/18/16 [History] Levothyroxine [Levothyroxine Sodium] 125 mcg PO DAILY@0630 06/27/16 [History] Lutein/Zeaxanthin [Lutein-Zeaxanthin 25-5 mg Sfgl] 1 each PO DAILY 06/27/16 [ History] Apixaban [Eliquis] 2.5 mg PO BID 12/26/16 [History] Bumetanide [Bumex] 1 mg PO BID 12/26/16 [History] Acetaminophen [Tylenol Arthritis] 650 mg PO BID 05/12/17 [History] Folic Acid 1 mg PO DAILY 05/12/17 [History] Finasteride [Proscar] 5 mg PO DAILY #7 tablet 06/18/17 [Rx] Tamsulosin [Flomax] 0.4 mg PO DAILY #7 cap.er.24h 06/18/17 [Rx] Iron 65 mg PO DAILY 06/26/17 [History] Bisacodyl [Dulcolax] 10 mg RC DAILY PRN 4 Days #4 supp.rect 07/07/17 [Rx] LORazepam Oral Conc [Ativan Oral Conc] 0.5 - 1 mg SL Q4HR PRN 4 Days #6 mls [Rx] Morphine Oral CONC [Roxanol] 0.125 - 0.25 ml SL Q4H PRN 4 Days #6 ml 07/07/17 [ Rx] Allergies/Adverse Reactions: 3 Allergy/AdvReac Type Severity Reaction Status Date / Time No Known Allergies Allergy Verified 06/26/17 13:07 Certification: Further, I certify that my clinical findings support that this patient is homebound (i.e. absences from home require considerable and taxing effort and are for medical reasons or tenriism services or infrequently or short duration when for other reasons) because: bladder cancer. Homebound Reason: Patient requires assistance of a person or device to safely leave home, Leaving home requires considerable and taxing effort due to condition Attestation: My signature below is to certify that this patient is under my care and that I, or nurse practitioner, or a physician's merchandising assistant working with me, has a face-to -face encounter with this patient.
--- NOTE | 2017-07-07 14:14 | Event Note ---
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 Start: 07/07/2017 Hospice benefit. In: +90 days Palliative performance scale: 30-40% History: The patient has inoperable untreatable metastatic bladder cancer. He had wanted home health care, however being informed by urology that there was absolutely nothing left to offer the patient has now opted for comfort care status and comfort care only. Patient has been in a fairly rapid sleep decline of late. Her is no further aggressive care available to him leave that These findings support a life expectancy of 6 months or less. I attest that I have compose the above narrative based on my review of the patient's medical records, and or on my examination of the patient. Henry Hernandez M.D. Associate medical record consultant. [facility]
== END 2017-07-07 14:01 | disposition hospice, home (50) | DRG 871 ==
LOC: ICNU 11:03 → EMEROO 11:03 → SUATTDRO 17:44 → ICNU 18:27 → 2ANU 07-02 13:54
PROVIDERS: ADMIT Internal Medicine Pulmonary Disease; ATTEND Internal Medicine